=== PATIENT | female | born 1940 | race Caucasian/White ===

== ENCOUNTER 2018-01-06 00:40 | Emergency (ER) | payer MEDICARE, OTHER, SELFPAY ==
[2018-01-06 00:47] VITALS: BP 144/95; PULSE 87; RESP 20; TEMP 36.6; O2SAT 97
[2018-01-06 01:01] LABS: Bilirubin Urine UA NEGATIVE (NEGATIVE); Glucose Urine UA NEGATIVE (Normal); Ketones Urine UA TRACE (NEGATIVE); Leukocyte Esterase Urine UA 2+ (NEGATIVE); Nitrite Urine UA NEGATIVE (Negative); Occult Blood Urine UA 1+ (Negative); Protein Urine UA 2+ (Negative); Urobilinogen Urine UA 0.2 E.U./dL (0.2); pH Urine UA 5.5 (4.5-8.0)
[2018-01-06 01:08] LABS: Appearance Urine UA CLOUDY; Color Urine UA Orange
[2018-01-06 01:09] LABS: Bacteria Urine Few (2-10); RBC Urine 30-100/HPF (0-5/HPF); Squamous Epithelial Cell Urine 0-1 /HPF; WBC Urine 30-100/HPF (0-5/HPF)
[2018-01-06 01:10] LABS: Culture Indicated Urine Specimen Cultured
--- NOTE | 2018-01-06 01:19 | ED.FEMALEGU ---
HPI - Female Genitourinary General Chief complaint: Urogenital-Female Stated complaint: blood in urine, pain burning Time Seen by Provider: 01/06/18 01:19 Source: patient Mode of arrival: ambulatory Limitations: no limitations History of Present Illness HPI Narrative: This is a 77-year-old female who comes to the emergency department with complaint of dysuria, urgency and frequency that started earlier this evening. Patient states that she has not had any fevers, no abdominal, pelvic pain or back or flank pain. She has not had any nausea or vomiting. She has not had any other GI issues. She has had UTIs in the past. She did notice what looks like some blood in her urine. Patient has history significant for hypothyroidism. She has what sounds like is potentially a volvulus or bowel obstruction that required abdominal surgery. She had wound dehiscence and had a wound VAC in place for prolonged period. She has also had bilateral knee surgery. Related Data Home Medications Medication Instructions Recorded Confirmed levothyroxine [Synthroid] 0.075 mg PO QDAY #0 09/28/09/29/17 Previous Rx's Medication Instructions Recorded nitrofurantoin monohyd/m-cryst 100 mg PO BID #10 cap 01/06/18 [Macrobid] Allergies Allergy/AdvReac Type Severity Reaction Status Date / Time codeine [CODEINE] Allergy Severe CHANGE IN Unverified 09/29/17 12:14 BEHAVIOR latex [LATEX] Allergy Severe FEVER Unverified 09/29/17 12:14 BLISTERS penicillin V [PENICILLIN V] Allergy Severe ANAPHYLAXIS Unverified 09/29/17 12:14 hydroxychloroquine Allergy Intermediate Unverified 09/29/17 12:14 [HYDROXYCHLOROQUINE] simvastatin [From ZOCOR] Allergy Intermediate Unverified 09/29/17 12:14 venlafaxine [VENLAFAXINE] Allergy Intermediate Unverified 09/29/17 12:14 Metal Allergy Severe Rash/Hives/ Uncoded 09/29/17 12:14 Itching Review of Systems Review of Systems All systems reviewed & are unremarkable except as noted in HPI and below Constitutional Denies fever(s) and Reports other (Has felt cold for several days) Gastrointestinal Gastrointestinal: Denies abdominal pain, Denies change in bowel habits, Denies diarrhea, Denies nausea and Denies vomiting Genitourinary Reports hematuria, Reports urinary frequency, Reports dysuria, Denies flank pain, Denies urinary incontinence and Reports urinary urgency Musculoskeletal Denies back pain PFSH Medical History Hypothyroid (Acute) Surgical History H/O: knee surgery (Acute) Exam Initial Vital Signs Initial Vital Signs: Vital Signs Temperature 97.9 F 01/06/18 00:47 Pulse Rate 87 01/06/18 00:47 Respiratory Rate 20 01/06/18 00:47 Blood Pressure 144/95 H 01/06/18 00:47 Pulse Oximetry 97 01/06/18 00:47 Course Orders Ordered: ED Orders 01/06/18 00:50 Urinalysis and Microscopic Stat Urine Culture Stat Discontinued Medications Nitrofurantoin Macrocrystals (Macrobid 100mg Prepack) 1 bottle MISC SEEINSTR ONE Stop: 01/06/18 01:30 Last Admin: 01/06/18 01:43 Dose: 1 bottle Phenazopyridine HCl (Pyridium 100mg Prepack) 1 bottle MISC SEEINSTR ONE Stop: 01/06/18 01:30 Last Admin: 01/06/18 01:43 Dose: 1 bottle Vital Signs - 8 hr 01/06/18 00:47 01/06/18 01:53 Temperature 97.9 F 97.2 F L Pulse Rate 87 96 H Respiratory Rate 20 18 Blood Pressure 144/95 H 132/77 Pulse Oximetry 97 99 MDM - Female Genitourinary Lab Data Lab Results 01/06/18 Range/Units 00:50 Urine Color [place] Urine Appearance Cloudy Urine pH 5.5 (4.5-8.0) Ur Specific [place] 1.020 (1.000-1.035) Urine Protein 2+ H (Negative) Urine Glucose (UA) Negative (Normal) g/dL Urine Ketones Trace H (NEGATIVE) Urine Occult Blood 1+ H (Negative) Urine Nitrate Negative (Negative) Urine Bilirubin Negative (NEGATIVE) Urine Urobilinogen 0.2 (0.2) E.U./dL Ur Leukocyte Esterase 2+ H (NEGATIVE) Urine RBC 30-100/hpf H (0-5/HPF) Urine WBC 30-100/hpf H (0-5/HPF) Ur Squamous Epith Cells 0-1 /hpf Urine Bacteria Few (2-10) H (None) Ur Culture Indicated? Specimen cultured Micro UA Comment Not Reportable MDM Narrative Medical decision making narrative: Clinically patient is a UTI. Urine shows leukocyte esterase although no nitrates. She does have white blood cells and does not have an excessive number of epithelial cells. Plan for Pyridium along with Macrobid. she has a history of penicillin allergy. Patient has had pretty in the past without any issue. Discharge Plan Departure Patient Disposition: Home Clinical Impression: Acute UTI Discharge Date/Time: 01/06/18 01:54 Interventions: ED Discharge Assessment Last Done: 01/06/18 01:53 Instructions: DI for Urinary Tract Infection (UTI) Activity Restrictions/Additional Instructions: Follow-up with your primary care physician in the next 2-3 days if your symptoms are not resolving. Return to the emergency department for fevers greater than 100.4, new flank pain, new abdominal pain, persistent vomiting or other new or concerning symptoms. Take antibiotics until they are completely gone. Take peridium 1 tablet every 8 hours as needed for symptoms. Prescriptions: New nitrofurantoin monohyd/m-cryst [Macrobid] 100 mg capsule 100 mg PO BID Qty: 10 RF: 0 No Action levothyroxine [Synthroid] 75 MCG tablet 0.075 mg PO QDAY Qty: 0 RF: 0
[2018-01-06] MEDS: NITROFURANTOIN 100MG PREPACK 1 BOTTLE MISC (01:43)
[2018-01-06] MEDS: PHENAZOPYRIDINE 100 MG PREPACK 1 BOTTLE MISC (01:43)
[2018-01-06 01:53] VITALS: BP 132/77; PULSE 96; RESP 18; TEMP 36.2; O2SAT 99
== END 2018-01-06 01:54 | disposition home or self-care (01) ==
PROVIDERS: Emergency Provider Emergency Medicine
DX: N39.0 Urinary tract infection, site not specified (principal)
CPT/HCPCS: 81001; 87086; 99282; 99283

== ENCOUNTER → 2018-01-22 08:57 | Outpatient (CLI) | payer MEDICARE, OTHER, SELFPAY ==
--- NOTE | 2018-01-22 | DI.RAD.S_ITS ---
PROCEDURE: XR WRIST RT MIN 3V INDICATIONS: BI HAND AND WRIST PAIN/ RIGHT ANKLE PAIN TECHNIQUE: 4 views of the right wrist were acquired. COMPARISON: [facility], , HAND 3V RIGHT, 08/31/2014, 10:00. FINDINGS: Bones: No fractures or dislocations, but there is moderately severe to severe degenerative change at the visualized first MCP joint and especially severe at the base of the first metacarpal articulates against the trapezium.. No suspicious bony lesions. Scaphoid view: No trauma the scaphoid is present. Soft tissues: No suspicious soft tissue calcifications. IMPRESSION: Advanced degenerative osteoarthritis slightly worsened from a comparison hand plain film include the wrist 08/31/14. No superimposed acute trauma or erosive arthritis is suspected. Dictated by: Rodrigo Alejo M.D. on 01/22/2018 at 9:44 Approved by: Rodrigo Alejo M.D. on 01/22/2018 at 9:45
--- NOTE | 2018-01-22 | DI.RAD.S_ITS ---
PROCEDURE: XR WRIST LT MIN 3V INDICATIONS: BI HAND AND WRIST PAIN/ RIGHT ANKLE PAIN TECHNIQUE: 4 views of the wrist were acquired. COMPARISON: [facility], HAND 3V LEFT, 08/31/2014, 10:00. , [facility], XR WRIST RT MIN 3V, 01/22/2018, 9:07. FINDINGS: Bones: No fractures or dislocations. No suspicious bony lesions. Advanced degenerative osteoarthritis is seen at the base of the first metacarpal as articulates against the trapezium where both narrowing of the joint interspace and subluxation laterally is present. There is a finding also of the distal scaphoid subchondral cyst. Scaphoid view: No trauma to the scaphoid. Soft tissues: No suspicious soft tissue calcifications. IMPRESSION: Advanced degenerative osteoarthritis involving the hand and wrist mildly worsened from the comparison study the hand that included the wrist from August of 2014. Dictated by: Rodrigo Alejo M.D. on 01/22/2018 at 9:47 Approved by: Rodrigo Alejo M.D. on 01/22/2018 at 9:49
--- NOTE | 2018-01-22 | DI.RAD.S_ITS ---
PROCEDURE: XR HAND LT MIN 3V INDICATIONS: BI HAND AND WRIST PAIN/ RIGHT ANKLE PAIN TECHNIQUE: 3 views of the hand(s) acquired. COMPARISON: [facility], CR, XR HAND RT MIN 3V, 01/22/2018, 9:06. [facility], CR, HAND 3V LEFT, 08/31/2014, 10:00. FINDINGS: Bones: No fractures or dislocations, but there has been mild interval worsening of advanced degenerative osteoarthritic change involving the left hand, and wrist. This includes prominent distal interphalangeal joint space narrowing and osteophytic spurring along digits 2, 3, 4 and to a lesser degree the fifth distal interphalangeal joint. Carpal bones are normally aligned but there is moderately severe degenerative change at the base of the first metacarpal.. No suspicious bony lesions. Soft tissues: No suspicious soft tissue calcifications. IMPRESSION: Mild interval worsening of advanced degenerative osteoarthritis from the reference study of the left hand from August of 2014. No superimposed trauma found. Quite severe arthritic changes also present at the base of the first metacarpal as it articulates against the trapezium. Dictated by: Rodrigo Alejo M.D. on 01/22/2018 at 9:45 Approved by: Rodrigo Alejo M.D. on 01/22/2018 at 9:47
--- NOTE | 2018-01-22 | DI.RAD.S_ITS ---
PROCEDURE: XR HAND RT MIN 3V INDICATIONS: BI HAND AND WRIST PAIN/ RIGHT ANKLE PAIN TECHNIQUE: 3 views of the hand(s) acquired. COMPARISON: [facility], HAND 3V RIGHT, 08/31/2014, 10:00. [facility], HAND 3V LEFT, 08/31/2014, 10:00. [facility], HAND 3V RIGHT, 01/27/2010, 8:33. FINDINGS: Bones: No fractures or dislocations but there is moderately severe to severe degenerative osteoarthritis involving the hand and wrist, with the most pronounced areas of degenerative change at the distal interphalangeal joints of digits 23 and 4 and at the base of the first metacarpal as articulates against the trapezium.. Carpal bones are normally aligned. No suspicious bony lesions. Soft tissues: No suspicious soft tissue calcifications. IMPRESSION: Advanced degenerative osteoarthritis, slightly worsened from the comparison study in August of 2014. No trauma found. Dictated by: Rodrigo Alejo M.D. on 01/22/2018 at 9:42 Approved by: Rodrigo Alejo M.D. on 01/22/2018 at 9:44
--- NOTE | 2018-01-22 | DI.RAD.S_ITS ---
PROCEDURE: XR ANKLE RT MIN 3V INDICATIONS: BI HAND AND WRIST PAIN/ RIGHT ANKLE PAIN TECHNIQUE: 3 views of the ankle were acquired. COMPARISON: None. FINDINGS: Bones: No fractures or dislocations and there is mild thinning of the tibiotalar joint indicating presence of mild degenerative osteoarthritis in that area. Ankle mortise is normally aligned. No suspicious bony lesions. Soft tissues: No tibiotalar joint effusion. Achilles tendon appears normal. IMPRESSION: Mild tibiotalar joint osteoarthritis. Dictated by: Rodrigo Alejo M.D. on 01/22/2018 at 9:49 Approved by: Rodrigo Alejo M.D. on 01/22/2018 at 9:49
== END ==
PROVIDERS: PCP Internal Medicine; Visit Provider Internal Medicine Rheumatology
DX: L40.50 Arthropathic psoriasis, unspecified (principal); M19.042 Primary osteoarthritis, left hand; M19.041 Primary osteoarthritis, right hand; M19.032 Primary osteoarthritis, left wrist; M19.031 Primary osteoarthritis, right wrist; M19.071 Primary osteoarthritis, right ankle and foot; M25.571 Pain in right ankle and joints of right foot; M79.642 Pain in left hand; M79.641 Pain in right hand; M25.532 Pain in left wrist; M25.531 Pain in right wrist
CPT/HCPCS: 73110; 73130; 73610

== ENCOUNTER 2018-02-20 09:45 | Outpatient (RCR) | payer MEDICARE, OTHER, SELFPAY ==
--- NOTE | 2017-11-11 12:05 | PT.OIE ---
Current Diagnoses Presence of right artificial knee joint (11/11/17) Provider Visit Care Team Role Provider Type Dandre Peña DO Attending Provider Non-Staff Specialty: Orthopedics Address: [address] [place] [address], [id number] Email: Physical Therapy Initial Evaluation PT-OP-A Visit Information Start: 11/11/17 12:08 Freq: Status: Active Protocol: Document 11/11/17 12:05 MDD (Rec: 11/11/17 12:35 MDD [email or web address]) Out-Patient Physical Therapy Visit Information Visit Information Visit Type Initial Evaluation Visit Start Time 11:15 Visit Stop Time 12:05 Total Visit Minutes 50 Visit Number 1 Number of HOME HEALTH PHYSICAL THERAPIST Visits 0 Evaluation Information Evaluation Date 11/11/17 PT-OP-B Current Condition Start: 11/11/17 12:08 Freq: Status: Active Protocol: Document 11/11/17 12:05 MDD (Rec: 11/11/17 12:35 MDD [email or web address]) Current Condition History of Current Condition Onset Date 11/05/17 Current Complaints R knee pain s/p R TKA History of Current Condition Pt had left knee replaced 1.5 years ago. Reports she had an arthroscopic surgery on the R knee in and didn't have any trouble with her R knee until she was rehabing her L knee replacement. Her surgery was performed on 11/05/[address] Peña at [facility]. Pt also reports history of R sciatic pain that was very aggravated before her surgery. She has not felt it recently , but is cautious about her movements because of it. Treatment Goals Patient/Caregiver Goals Pt would like to decrease pain , be able to return to riding her bike, walking her dog and swimming. 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 Current Functional Impairments (Reported) Functional Limitations- ADL's Difficulty standing up from low seat, rolling in bed Functional Limitations- Recreation/ unable to walk long distances Hobbies with her dog, bike or swim PT-OP-C Subjective Start: 11/11/17 12:08 Freq: Status: Active Protocol: Document 11/11/17 12:05 MDD (Rec: 11/11/17 12:35 [facility] [email or web address]) OP-PT Subjective Patient Comments Patient Comments Pt reports her knee has been very painful since the surgery . She has been taking medication regularly and has been icing multiple times per day. Patient Reported Progress Same Patient Questionnaires Lower Extremity Functional Scale LEFS Score 6/80 LEFS Impairment 80 to 99% Impaired (Score 1-16 ) OP-PT Pain Assessment Pain Assessment Grid Paper Pain Assessment Grid Completed Yes Location Knee Pain Location Details globally in R knee Intensity 5 Scale Used Numeric (1 - 10) Description Aching Sharp Frequency Constant Pain Alleviating Factors Cold Medication Pain Behaviors Pain Behaviors Calling Out Facial Grimacing Guarding PT-OP-G Mobility & Gait Start: 11/11/17 12:08 Freq: Status: Active Protocol: Document 11/11/17 12:05 MDD (Rec: 11/11/17 12:35 [facility] [email or web address]) OP Mobility Evaluation Bed Mobility Rolling Did not perform today. Supine to and from Sit guarded and slow OP Gait Assessment Gait Gait Assistance Required: Independent Distance (Feet) (feet) 30 Able to Maintain Weight Bearing Status Yes During Gait Assistive Devices Assistive Device Front Wheeled Walker Gait Deviations General Gait Pattern Antalgic Decreased Stride Length Narrow Based Gait Factors Limiting Gait Function Factors Limiting Gait Function Limited Range of Motion Pain PT-OP-J Posture/Palpation/Skin Start: 11/11/17 12:08 Freq: Status: Active Protocol: Document 11/11/17 12:05 [facility] (Rec: 11/11/17 12:35 [facility] [email or web address]) Skin Assessment Circumference Measurement 2 Location L knee jointline Measurement (Centimeters) 42 1 Location R knee jointline Measurement (Centimeters) 46 Incisional Assessment Incision Appearance/Comments incision appears to be healing well, fully scabbed with no significant areas of redness Other Assessments Skin Assessment Comments moderate healing bruises in R knee and nguyen. Mildly decreased sensation in R LE distal to knee than L. PT-OP-K Range of Motion Start: 11/11/17 12:08 Freq: Status: Active Protocol: Document 11/11/17 12:05 MDD (Rec: 11/11/17 12:35 [facility] [email or web address]) Knee Goniometric Range of Motion Knee Measured in Degrees Right Knee ROM WFL No Patient Position Supine Flexion Active (degrees) 70 Extension Active (degrees) 12 Left Knee ROM WFL Yes Patient Position Supine Flexion Active (degrees) 130 Flexion Passive (degrees) 132 Extension Active (degrees) 0 Extension Passive (degrees) 0 Knee ROM Limitations Knee ROM Limitations Soft Tissue Tightness Pain Swelling PT-OP-R Modalities Start: 11/11/17 12:08 Freq: Status: Active Protocol: Document 11/11/17 12:05 MDD (Rec: 11/11/17 12:35 MDD [email or web address]) Electric Stimulation Electric Stimulation Interferential Current (IFC) Body Location R knee Duration (Minutes) 15 Intensity 18 Patient Position Supine Combined With Heat/Cold Cold Pack PT-OP-T Assessment and Plan Start: 11/11/17 12:08 Freq: Status: Active Protocol: Document 11/11/17 12:05 MDD (Rec: 11/11/17 12:35 MDD [email or web address]) Physical Therapy Assessment Rehab Potential Rehabilitation Potential Good Evaluation Complexity Number of Personal Factors/Comorbidities 0 Number of Body Systems Impaired 1-2 Clinical Presentation at Evaluation Stable Impairments Impairments Activity Tolerance Edema Functional Mobility Gait Integument Pain ROM Sensation Soft Tissue Mobility Strength Goals 3 Impairment Activity tolerance Short Term Goal (STG) Pt to tolerate ambulating up to 1/2 mile with her dog in 4- 6 weeks. STG Duration 4 weeks Molecular Biology Director Goal (LTG) Pt to tolerate ambulating up to 2 miles with her dog. LTG Duration 12 weeks 2 Impairment Gait Short Term Goal (STG) Progress to gait on level ground with single point cane in 3-4 weeks. STG Duration 4 weeks Molecular Biology Director Goal (LTG) Progress to independent with no AD on level ground in 8 weeks. LTG Duration 8 One Impairment ROM Short Term Goal (STG) Improve R knee ROM to 0-90 degrees in 2-3 weeks. STG Duration 2 week Penitentiary Goal (LTG) R knee ROM 0-130 in 6-8 weeks. LTG Duration 8 weeks Assessment Summary Assessment Pt is day 6 P/O R TKA and is currently limited in her ability to perform transfers and gait without pain. She would like to get back to walking her dog, riding her bike and swimming. Today she demonstrates impaired active/ passive R knee ROM, swelling, impaired gait, LE strength and significant pain. She should benefit from a PT plan of care to address the above impairments. Physical Therapy Plan Frequency and Duration Frequency of Treatment 2x/Week Duration of Treatment 12 weeks Plan of Care Start Date 11/11/17 Plan of Care End Date 02/03/18 Therapeutic Interventions Therapeutic Interventions Aquatic Therapy Gait Training Home Exercise Program Joint Mobilizations Manual Therapy Neuromuscular Re-education Self-Care/Home Management Soft Tissue Mobilization Therapeutic Activities Therapeutic Exercises Modalities Cold Pack/Ice Massage Electric Stimulation Next Visit Focus/Plan Next Note Type Treatment Note Next Visit Plan Pt unable to tolerate gentle posterior femoral glide mobilizations for knee extension today, may trial at next session. Review and progress HEP: provided handout today including heel slides, quad sets, gluteal sets, supine hip abduction, ankle pumps and supine knee extension stretch with towel roll under ankle.
--- NOTE | 2017-11-13 12:39 | PT.OTN ---
Current Diagnoses Presence of right artificial knee joint (11/13/17) Physical Therapy Treatment Note PT-OP-A Visit Information Start: 11/11/17 12:08 Freq: Status: Active Protocol: Document 11/13/17 12:00 DCW (Rec: 11/13/17 12:38 DCW [id number]) Out-Patient Physical Therapy Visit Information Visit Information Visit Type Treatment Note Visit Start Time 12:00 Visit Stop Time 12:55 Total Visit Minutes 55 Visit Number 2 Number of KITCHEN CLERK Visits 0 Evaluation Information Evaluation Date 11/11/17 PT-OP-B Current Condition Start: 11/11/17 12:08 Freq: Status: Active Protocol: Document 11/11/17 12:05 MDD (Rec: 11/11/17 12:35 MDD [email or web address]) Current Condition History of Current Condition Onset Date 11/05/17 Current Complaints R knee pain s/p R TKA History of Current Condition Pt had left knee replaced 1.5 years ago. Reports she had an arthroscopic surgery on the R knee in and didn't have any trouble with her R knee until she was rehabing her L knee replacement. Her surgery was performed on 11/05/[address] Peña at [facility]. Pt also reports history of R sciatic pain that was very aggravated before her surgery. She has not felt it recently , but is cautious about her movements because of it. Treatment Goals Patient/Caregiver Goals Pt would like to decrease pain , be able to return to riding her bike, walking her dog and swimming. 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 Current Functional Impairments (Reported) Functional Limitations- ADL's Difficulty standing up from low seat, rolling in bed Functional Limitations- Recreation/ unable to walk long distances Hobbies with her dog, bike or swim PT-OP-C Subjective Start: 11/11/17 12:08 Freq: Status: Active Protocol: Document 11/13/17 12:00 DCW (Rec: 11/13/17 12:38 DCW [id number]) OP-PT Subjective Patient Comments Patient Comments My knee hurts like hell. PT-OP-G Mobility & Gait Start: 11/11/17 12:08 Freq: Status: Active Protocol: Document 11/11/17 12:05 MDD (Rec: 11/11/17 12:35 MDD [email or web address]) OP Mobility Evaluation Bed Mobility Rolling Did not perform today. Supine to and from Sit guarded and slow OP Gait Assessment Gait Gait Assistance Required: Independent Distance (Feet) (feet) 30 Able to Maintain Weight Bearing Status Yes During Gait Assistive Devices Assistive Device Front Wheeled Walker Gait Deviations General Gait Pattern Antalgic Decreased Stride Length Narrow Based Gait Factors Limiting Gait Function Factors Limiting Gait Function Limited Range of Motion Pain PT-OP-J Posture/Palpation/Skin Start: 11/11/17 12:08 Freq: Status: Active Protocol: Document 11/11/17 12:05 MDD (Rec: 11/11/17 12:35 MDD [email or web address]) Skin Assessment Circumference Measurement 2 Location L knee jointline Measurement (Centimeters) 42 1 Location R knee jointline Measurement (Centimeters) 46 Incisional Assessment Incision Appearance/Comments incision appears to be healing well, fully scabbed with no significant areas of redness Other Assessments Skin Assessment Comments moderate healing bruises in R knee and nguyen. Mildly decreased sensation in R LE distal to knee than L. PT-OP-K Range of Motion Start: 11/11/17 12:08 Freq: Status: Active Protocol: Document 11/11/17 12:05 MDD (Rec: 11/11/17 12:35 MDD [email or web address]) Knee Goniometric Range of Motion Knee Measured in Degrees Right Knee ROM WFL No Patient Position Supine Flexion Active (degrees) 70 Extension Active (degrees) 12 Left Knee ROM WFL Yes Patient Position Supine Flexion Active (degrees) 130 Flexion Passive (degrees) 132 Extension Active (degrees) 0 Extension Passive (degrees) 0 Knee ROM Limitations Knee ROM Limitations Soft Tissue Tightness Pain Swelling PT-OP-Q Treatments Start: 11/11/17 12:08 Freq: Status: Active Protocol: Document 11/13/17 12:00 DCW (Rec: 11/13/17 12:38 DCW [id number]) Cardio Equipment Recumbent Bicycle Duration (Minutes) 5 Resistance 0 Seat Position 3 Other Pt unable to complete full rotation Therapeutic Exercises Supine Exercises 4 Supine Exercise Name Hip Abduction/Windshield Wipers Side right 3 Supine Exercise Name SLR Side right 2 Supine Exercise Name Heel slides Side right 1 Supine Exercise Name SAQ Side right Standing Exercises 3 Standing Exercise Name Step-up Side right Resistance 4 step 2 Standing Exercise Name Flexion Step stretch Side right 1 Standing Exercise Name TKE Side right Resistance Lv 2 Equipment Used T-Band PT-OP-R Modalities Start: 11/11/17 12:08 Freq: Status: Active Protocol: Document 11/13/17 12:00 DCW (Rec: 11/13/17 12:38 DCW [id number]) Electric Stimulation Electric Stimulation Interferential Current (IFC) Body Location R knee Duration (Minutes) 15 Intensity 18 Patient Position Supine Combined With Heat/Cold Cold Pack PT-OP-T Assessment and Plan Start: 11/11/17 12:08 Freq: Status: Active Protocol: Document 11/13/17 12:00 DCW (Rec: 11/13/17 12:38 DCW [id number]) Physical Therapy Assessment Impairments Impairments Activity Tolerance Edema Functional Mobility Gait Integument Pain ROM Sensation Soft Tissue Mobility Strength Goals 3 Impairment Activity tolerance Short Term Goal (STG) Pt to tolerate ambulating up to 1/2 mile with her dog in 4- 6 weeks. STG Duration 4 weeks Energy Specialist Goal (LTG) Pt to tolerate ambulating up to 2 miles with her dog. LTG Duration 12 weeks 2 Impairment Gait Short Term Goal (STG) Progress to gait on level ground with single point cane in 3-4 weeks. STG Duration 4 weeks Energy Specialist Goal (LTG) Progress to independent with no AD on level ground in 8 weeks. LTG Duration 8 One Impairment ROM Short Term Goal (STG) Improve R knee ROM to 0-90 degrees in 2-3 weeks. STG Duration 2 week Energy Specialist Goal (LTG) R knee ROM 0-130 in 6-8 weeks. LTG Duration 8 weeks Assessment Summary Assessment Pt has fairly low pain tolerance, but is willing to work through it with many of her exercises. Physical Therapy Plan Frequency and Duration Frequency of Treatment 2x/Week Duration of Treatment 12 weeks Plan of Care Start Date 11/11/17 Plan of Care End Date 02/03/18 Therapeutic Interventions Therapeutic Interventions Aquatic Therapy Gait Training Home Exercise Program Joint Mobilizations Manual Therapy Neuromuscular Re-education Self-Care/Home Management Soft Tissue Mobilization Therapeutic Activities Therapeutic Exercises Modalities Cold Pack/Ice Massage Electric Stimulation Next Visit Focus/Plan Next Note Type Treatment Note Next Visit Plan Continued POC
--- NOTE | 2017-11-19 12:04 | PT.OTN ---
Current Diagnoses Presence of right artificial knee joint (11/13/17) Physical Therapy Treatment Note PT-OP-A Visit Information Start: 11/11/17 12:08 Freq: Status: Active Protocol: Document 11/19/17 12:04 MDD (Rec: 11/19/17 16:45 MDD [email or web address]) Out-Patient Physical Therapy Visit Information Visit Information Visit Type Treatment Note Visit Start Time 11:25 Visit Stop Time 12:04 Total Visit Minutes 39 Visit Number 3 Number of WEDDING FLORIST Visits 0 Evaluation Information Evaluation Date 11/11/17 PT-OP-B Current Condition Start: 11/11/17 12:08 Freq: Status: Active Protocol: Document 11/11/17 12:05 MDD (Rec: 11/11/17 12:35 MDD [email or web address]) Current Condition History of Current Condition Onset Date 11/05/17 Current Complaints R knee pain s/p R TKA History of Current Condition Pt had left knee replaced 1.5 years ago. Reports she had an arthroscopic surgery on the R knee in and didn't have any trouble with her R knee until she was rehabing her L knee replacement. Her surgery was performed on 11/05/[address] Peña at [facility]. Pt also reports history of R sciatic pain that was very aggravated before her surgery. She has not felt it recently , but is cautious about her movements because of it. Treatment Goals Patient/Caregiver Goals Pt would like to decrease pain , be able to return to riding her bike, walking her dog and swimming. 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 Current Functional Impairments (Reported) Functional Limitations- ADL's Difficulty standing up from low seat, rolling in bed Functional Limitations- Recreation/ unable to walk long distances Hobbies with her dog, bike or swim PT-OP-C Subjective Start: 11/11/17 12:08 Freq: Status: Active Protocol: Document 11/19/17 12:04 MDD (Rec: 11/19/17 16:45 MDD [email or web address]) OP-PT Subjective Patient Comments Patient Comments Pt continues to report significant pain in her R knee , but is walking better and using the cane only when out and about (no cane in the house). OP-PT Pain Assessment Location Knee Pain Location Details globally in R knee Intensity 8 Scale Used Numeric (1 - 10) Description Aching Sharp Frequency Constant Pain Alleviating Factors Cold Medication PT-OP-G Mobility & Gait Start: 11/11/17 12:08 Freq: Status: Active Protocol: Document 11/11/17 12:05 MDD (Rec: 11/11/17 12:35 MDD [email or web address]) OP Mobility Evaluation Bed Mobility Rolling Did not perform today. Supine to and from Sit guarded and slow OP Gait Assessment Gait Gait Assistance Required: Independent Distance (Feet) (feet) 30 Able to Maintain Weight Bearing Status Yes During Gait Assistive Devices Assistive Device Front Wheeled Walker Gait Deviations General Gait Pattern Antalgic Decreased Stride Length Narrow Based Gait Factors Limiting Gait Function Factors Limiting Gait Function Limited Range of Motion Pain PT-OP-J Posture/Palpation/Skin Start: 11/11/17 12:08 Freq: Status: Active Protocol: Document 11/11/17 12:05 MDD (Rec: 11/11/17 12:35 MDD [email or web address]) Skin Assessment Circumference Measurement 2 Location L knee jointline Measurement (Centimeters) 42 1 Location R knee jointline Measurement (Centimeters) 46 Incisional Assessment Incision Appearance/Comments incision appears to be healing well, fully scabbed with no significant areas of redness Other Assessments Skin Assessment Comments moderate healing bruises in R knee and nguyen. Mildly decreased sensation in R LE distal to knee than L. PT-OP-K Range of Motion Start: 11/11/17 12:08 Freq: Status: Active Protocol: Document 11/11/17 12:05 MDD (Rec: 11/11/17 12:35 MDD [email or web address]) Knee Goniometric Range of Motion Knee Measured in Degrees Right Knee ROM WFL No Patient Position Supine Flexion Active (degrees) 70 Extension Active (degrees) 12 Left Knee ROM WFL Yes Patient Position Supine Flexion Active (degrees) 130 Flexion Passive (degrees) 132 Extension Active (degrees) 0 Extension Passive (degrees) 0 Knee ROM Limitations Knee ROM Limitations Soft Tissue Tightness Pain Swelling PT-OP-Q Treatments Start: 11/11/17 12:08 Freq: Status: Active Protocol: Document 11/19/17 12:04 MDD (Rec: 11/19/17 16:45 MDD [email or web address]) Cardio Equipment Bicycle (Upright) Duration (Minutes) 5 Resistance 0 Other rocking fwd/back for stretch - no full revolutions Therapeutic Exercises Sitting Exercises Finnish ball flexion stretch Side right Equipment Used small pakistani ball Reps/Minutes 3 minutes Comments rocking forward with feet planted for knee flexion stretch Standing Exercises 6 Standing Exercise Name standing hip abduction Side bilateral Resistance Lv 1 t-band (latex free) Reps/Minutes 10 5 Standing Exercise Name standing hip extension Side bilateral Resistance Lv 1 - tband (latex free) Reps/Minutes 10 4 Standing Exercise Name standing hip flexion Side bilateral Resistance Lv 1 -tband (latex free) Reps/Minutes 10 3 Standing Exercise Name Step-up Side right Resistance 4 step Reps/Minutes 10 2 Standing Exercise Name Flexion Step stretch Side right 1 Standing Exercise Name TKE Side right Resistance Lv 1 (latex free) Equipment Used T-Band Reps/Minutes 15 Gait Training Gait Activity 1 Description Practice activating gluteals during weight acceptance Surface level ground Distance/Duration 10 minutes Treatment Focus increasing knee flexion/ avoiding limping Comments Focus on normalizing flexion during gait PT-OP-R Modalities Start: 11/11/17 12:08 Freq: Status: Active Protocol: Document 11/13/17 12:00 DCW (Rec: 11/13/17 12:38 DCW [id number]) Electric Stimulation Electric Stimulation Interferential Current (IFC) Body Location R knee Duration (Minutes) 15 Intensity 18 Patient Position Supine Combined With Heat/Cold Cold Pack PT-OP-T Assessment and Plan Start: 11/11/17 12:08 Freq: Status: Active Protocol: Document 11/19/17 12:04 MDD (Rec: 11/19/17 16:45 MDD [email or web address]) Physical Therapy Assessment Progress Towards Goals Progress Towards Goals Progressing Toward Goals Progress Comments Improved AROM today to -5 degrees extension to 100 degrees flexion. Assessment Summary Assessment Pt demonstrating improved tolerance for activities. Continues to have low pain tolerance. Does report decreased pain at end of session today. Physical Therapy Plan Frequency and Duration Frequency of Treatment 2x/Week Duration of Treatment 12 weeks Plan of Care Start Date 11/11/17 Plan of Care End Date 02/03/18 Next Visit Focus/Plan Next Note Type Treatment Note Next Visit Plan Continue progressing knee ROM stretches.
--- NOTE | 2017-11-22 14:30 | PT.OTN ---
Current Diagnoses Presence of right artificial knee joint (11/22/17) Physical Therapy Treatment Note PT-OP-A Visit Information Start: 11/11/17 12:08 Freq: Status: Active Protocol: Document 11/22/17 14:30 RCC (Rec: 11/23/17 13:17 RCC [email or web address]) Out-Patient Physical Therapy Visit Information Visit Information Visit Type Treatment Note Visit Start Time 13:45 Visit Stop Time 14:45 Total Visit Minutes 60 Visit Number 4 Number of BUGGY LOADER Visits 0 Evaluation Information Evaluation Date 11/11/17 PT-OP-B Current Condition Start: 11/11/17 12:08 Freq: Status: Active Protocol: Document 11/11/17 12:05 MDD (Rec: 11/11/17 12:35 MDD [email or web address]) Current Condition History of Current Condition Onset Date 11/05/17 Current Complaints R knee pain s/p R TKA History of Current Condition Pt had left knee replaced 1.5 years ago. Reports she had an arthroscopic surgery on the R knee in and didn't have any trouble with her R knee until she was rehabing her L knee replacement. Her surgery was performed on 11/05/[address] Peña at [facility]. Pt also reports history of R sciatic pain that was very aggravated before her surgery. She has not felt it recently , but is cautious about her movements because of it. Treatment Goals Patient/Caregiver Goals Pt would like to decrease pain , be able to return to riding her bike, walking her dog and swimming. 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 Current Functional Impairments (Reported) Functional Limitations- ADL's Difficulty standing up from low seat, rolling in bed Functional Limitations- Recreation/ unable to walk long distances Hobbies with her dog, bike or swim PT-OP-C Subjective Start: 11/11/17 12:08 Freq: Status: Active Protocol: Document 11/22/17 14:30 RCC (Rec: 11/23/17 13:17 RCC [email or web address]) OP-PT Subjective Patient Comments Patient Comments Pt notes less pain in R knee the past day and a half. She reports performing her HEP. PT-OP-G Mobility & Gait Start: 11/11/17 12:08 Freq: Status: Active Protocol: Document 11/11/17 12:05 MDD (Rec: 11/11/17 12:35 MDD [email or web address]) OP Mobility Evaluation Bed Mobility Rolling Did not perform today. Supine to and from Sit guarded and slow OP Gait Assessment Gait Gait Assistance Required: Independent Distance (Feet) (feet) 30 Able to Maintain Weight Bearing Status Yes During Gait Assistive Devices Assistive Device Front Wheeled Walker Gait Deviations General Gait Pattern Antalgic Decreased Stride Length Narrow Based Gait Factors Limiting Gait Function Factors Limiting Gait Function Limited Range of Motion Pain PT-OP-J Posture/Palpation/Skin Start: 11/11/17 12:08 Freq: Status: Active Protocol: Document 11/11/17 12:05 MDD (Rec: 11/11/17 12:35 MDD [email or web address]) Skin Assessment Circumference Measurement 2 Location L knee jointline Measurement (Centimeters) 42 1 Location R knee jointline Measurement (Centimeters) 46 Incisional Assessment Incision Appearance/Comments incision appears to be healing well, fully scabbed with no significant areas of redness Other Assessments Skin Assessment Comments moderate healing bruises in R knee and nguyen. Mildly decreased sensation in R LE distal to knee than L. PT-OP-K Range of Motion Start: 11/11/17 12:08 Freq: Status: Active Protocol: Document 11/22/17 14:30 RCC (Rec: 11/23/17 13:17 RCC [email or web address]) Knee Goniometric Range of Motion Knee Measured in Degrees Right Flexion Active (degrees) 101 Extension Active (degrees) 2 Knee ROM Limitations Knee ROM Limitations Soft Tissue Tightness Pain Swelling PT-OP-Q Treatments Start: 11/11/17 12:08 Freq: Status: Active Protocol: Document 11/22/17 14:30 RCC (Rec: 11/23/17 13:17 RCC [email or web address]) Cardio Equipment Recumbent Bicycle Duration (Minutes) 6 Resistance 0 Seat Position 3 Other Pt unable to complete full rotation Therapeutic Exercises Supine Exercises 3 Supine Exercise Name SLR Side right Reps/Minutes 10 2 Supine Exercise Name wall slides Side right Reps/Minutes 10 1 Supine Exercise Name SAQ Side right Reps/Minutes 10 Standing Exercises 6 Standing Exercise Name standing hip abduction Side bilateral Resistance Lv 1 t-band (latex free) Reps/Minutes 10 5 Standing Exercise Name standing hip extension Side bilateral Resistance Lv 1 - tband (latex free) Reps/Minutes 10 4 Standing Exercise Name standing hip flexion Side bilateral Resistance Lv 1 -tband (latex free) Reps/Minutes 10 2 Standing Exercise Name Flexion Step stretch Side right 1 Standing Exercise Name TKE Side right Resistance Lv 1 (latex free) Equipment Used T-Band Reps/Minutes 15 Manual Therapy Treatment Soft Tissue Mobilization scar tissue Body Location R anterior knee Mobilization Type Other Intensity/Depth Moderate Body Position Supine Joint Mobilizations 1 Joint PF joint Direction inferior, superior Grade III Body Position Supine PT-OP-R Modalities Start: 11/11/17 12:08 Freq: Status: Active Protocol: Document 11/22/17 14:30 RCC (Rec: 11/23/17 13:17 RCC [email or web address]) Electric Stimulation Electric Stimulation Interferential Current (IFC) Body Location R knee Duration (Minutes) 15 Intensity 21 Patient Position Hooklying Combined With Heat/Cold Cold Pack Comments bolster PT-OP-T Assessment and Plan Start: 11/11/17 12:08 Freq: Status: Active Protocol: Document 11/22/17 14:30 RCC (Rec: 11/23/17 13:17 [facility] [email or web address]) Physical Therapy Assessment Assessment Summary Assessment Pt's ROM is improving gradually, ranging 2-101 degrees AROM of the R knee after manual therapy and exercise. Pt's incision is closed, still scabbed and most sensitive at distal region. Physical Therapy Plan Frequency and Duration Frequency of Treatment 2x/Week Duration of Treatment 12 weeks Plan of Care Start Date 11/11/17 Plan of Care End Date 02/03/18 Next Visit Focus/Plan Next Note Type Treatment Note Next Visit Plan progress R knee ROM, LE strength, balance, and gait s/ p R TKA
--- NOTE | 2017-11-26 12:07 | PT.OTN ---
Current Diagnoses Presence of right artificial knee joint (11/26/17) Physical Therapy Treatment Note PT-OP-A Visit Information Start: 11/11/17 12:08 Freq: Status: Active Protocol: Document 11/26/17 11:15 DCW (Rec: 11/26/17 12:06 DCW [id number]) Out-Patient Physical Therapy Visit Information Visit Information Visit Type Treatment Note Visit Start Time 11:15 Visit Stop Time 12:10 Total Visit Minutes 55 Visit Number 5 Number of ANALYTICS DEVELOPER Visits 0 Evaluation Information Evaluation Date 11/11/17 PT-OP-B Current Condition Start: 11/11/17 12:08 Freq: Status: Active Protocol: Document 11/11/17 12:05 MDD (Rec: 11/11/17 12:35 MDD [email or web address]) Current Condition History of Current Condition Onset Date 11/05/17 Current Complaints R knee pain s/p R TKA History of Current Condition Pt had left knee replaced 1.5 years ago. Reports she had an arthroscopic surgery on the R knee in and didn't have any trouble with her R knee until she was rehabing her L knee replacement. Her surgery was performed on 11/05/[address] Peña at [facility]. Pt also reports history of R sciatic pain that was very aggravated before her surgery. She has not felt it recently , but is cautious about her movements because of it. Treatment Goals Patient/Caregiver Goals Pt would like to decrease pain , be able to return to riding her bike, walking her dog and swimming. 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 Current Functional Impairments (Reported) Functional Limitations- ADL's Difficulty standing up from low seat, rolling in bed Functional Limitations- Recreation/ unable to walk long distances Hobbies with her dog, bike or swim PT-OP-C Subjective Start: 11/11/17 12:08 Freq: Status: Active Protocol: Document 11/26/17 11:15 DCW (Rec: 11/26/17 12:06 DCW [id number]) OP-PT Subjective Patient Comments Patient Comments Pt's knee pain continues to subside, but she is still taking her pain pills prior to her therapy appointments. PT-OP-G Mobility & Gait Start: 11/11/17 12:08 Freq: Status: Active Protocol: Document 11/11/17 12:05 MDD (Rec: 11/11/17 12:35 MDD [email or web address]) OP Mobility Evaluation Bed Mobility Rolling Did not perform today. Supine to and from Sit guarded and slow OP Gait Assessment Gait Gait Assistance Required: Independent Distance (Feet) (feet) 30 Able to Maintain Weight Bearing Status Yes During Gait Assistive Devices Assistive Device Front Wheeled Walker Gait Deviations General Gait Pattern Antalgic Decreased Stride Length Narrow Based Gait Factors Limiting Gait Function Factors Limiting Gait Function Limited Range of Motion Pain PT-OP-J Posture/Palpation/Skin Start: 11/11/17 12:08 Freq: Status: Active Protocol: Document 11/11/17 12:05 MDD (Rec: 11/11/17 12:35 MDD [email or web address]) Skin Assessment Circumference Measurement 2 Location L knee jointline Measurement (Centimeters) 42 1 Location R knee jointline Measurement (Centimeters) 46 Incisional Assessment Incision Appearance/Comments incision appears to be healing well, fully scabbed with no significant areas of redness Other Assessments Skin Assessment Comments moderate healing bruises in R knee and nguyen. Mildly decreased sensation in R LE distal to knee than L. PT-OP-K Range of Motion Start: 11/11/17 12:08 Freq: Status: Active Protocol: Document 11/22/17 14:30 RCC (Rec: 11/23/17 13:17 RCC [email or web address]) Knee Goniometric Range of Motion Knee Measured in Degrees Right Flexion Active (degrees) 101 Extension Active (degrees) 2 Knee ROM Limitations Knee ROM Limitations Soft Tissue Tightness Pain Swelling PT-OP-Q Treatments Start: 11/11/17 12:08 Freq: Status: Active Protocol: Document 11/26/17 11:15 DCW (Rec: 11/26/17 12:06 DCW [id number]) Cardio Equipment Recumbent Bicycle Duration (Minutes) 6 Resistance 0 Seat Position 3 Other Full rotation Gym Equipment Shuttle Recovery Unilateral Squats Resistance 37# Shuttle Recovery Platform Stable Bilateral Squats Resistance 75# Shuttle Recovery Platform Stable Therapeutic Ball 1 Exercise Details Knee flexion - stretch with strap Ball Size/Color Blue - 45 cm Body Position Supine Therapeutic Exercises Supine Exercises 3 Supine Exercise Name SLR Side bilateral Reps/Minutes 10 2 Supine Exercise Name Heel slides Side right Reps/Minutes 10 Standing Exercises 6 Standing Exercise Name standing hip abduction Side bilateral Resistance Lv 1 t-band (latex free) Reps/Minutes 10 5 Standing Exercise Name standing hip extension Side bilateral Resistance Lv 1 - tband (latex free) Reps/Minutes 10 1 Standing Exercise Name TKE Side right Resistance Lv 1 (latex free) Equipment Used T-Band Reps/Minutes 15 Manual Therapy Treatment Soft Tissue Mobilization scar tissue Body Location R anterior knee Mobilization Type Other Intensity/Depth Moderate Body Position Supine Joint Mobilizations 1 Joint PF joint Direction inferior, superior Grade III Body Position Supine PT-OP-R Modalities Start: 11/11/17 12:08 Freq: Status: Active Protocol: Document 11/26/17 11:15 DCW (Rec: 11/26/17 12:06 DCW [id number]) Electric Stimulation Electric Stimulation Interferential Current (IFC) Body Location R knee Duration (Minutes) 15 Intensity 21 Patient Position Hooklying Combined With Heat/Cold Cold Pack Comments bolster PT-OP-T Assessment and Plan Start: 11/11/17 12:08 Freq: Status: Active Protocol: Document 11/26/17 11:15 DCW (Rec: 11/26/17 12:06 DCW [id number]) Physical Therapy Assessment Impairments Impairments Activity Tolerance Edema Functional Mobility Gait Integument Pain ROM Sensation Soft Tissue Mobility Strength Goals 3 Impairment Activity tolerance Short Term Goal (STG) Pt to tolerate ambulating up to 1/2 mile with her dog in 4- 6 weeks. STG Duration 4 weeks Building Performance Consultant Goal (LTG) Pt to tolerate ambulating up to 2 miles with her dog. LTG Duration 12 weeks 2 Impairment Gait Short Term Goal (STG) Progress to gait on level ground with single point cane in 3-4 weeks. STG Duration 4 weeks Building Performance Consultant Goal (LTG) Progress to independent with no AD on level ground in 8 weeks. LTG Duration 8 One Impairment ROM Short Term Goal (STG) Improve R knee ROM to 0-90 degrees in 2-3 weeks. STG Duration 2 week Building Performance Consultant Goal (LTG) R knee ROM 0-130 in 6-8 weeks. LTG Duration 8 weeks Assessment Summary Assessment Pt tolerated more today, decreased complaints of pain, able to perform a complete rotation in the recumbent bicycle for the first time. Physical Therapy Plan Frequency and Duration Frequency of Treatment 2x/Week Duration of Treatment 12 weeks Plan of Care Start Date 11/11/17 Plan of Care End Date 02/03/18 Therapeutic Interventions Therapeutic Interventions Aquatic Therapy Gait Training Home Exercise Program Joint Mobilizations Manual Therapy Neuromuscular Re-education Self-Care/Home Management Soft Tissue Mobilization Therapeutic Activities Therapeutic Exercises Modalities Cold Pack/Ice Massage Electric Stimulation Next Visit Focus/Plan Next Note Type Treatment Note Next Visit Plan progress R knee ROM, LE strength, balance, and gait s/ p R TKA
--- NOTE | 2017-11-29 14:30 | PT.OTN ---
Current Diagnoses Presence of right artificial knee joint (11/29/17) Physical Therapy Treatment Note PT-OP-A Visit Information Start: 11/11/17 12:08 Freq: Status: Active Protocol: Document 11/29/17 14:30 RCC (Rec: 11/30/17 15:40 RCC [email or web address]) Out-Patient Physical Therapy Visit Information Visit Information Visit Type Treatment Note Visit Start Time 13:45 Visit Stop Time 14:45 Total Visit Minutes 60 Visit Number 6 Number of BARROW WORKER HELPER Visits 0 Evaluation Information Evaluation Date 11/11/17 PT-OP-B Current Condition Start: 11/11/17 12:08 Freq: Status: Active Protocol: Document 11/11/17 12:05 MDD (Rec: 11/11/17 12:35 MDD [email or web address]) Current Condition History of Current Condition Onset Date 11/05/17 Current Complaints R knee pain s/p R TKA History of Current Condition Pt had left knee replaced 1.5 years ago. Reports she had an arthroscopic surgery on the R knee in and didn't have any trouble with her R knee until she was rehabing her L knee replacement. Her surgery was performed on 11/05/[address] Peña at [facility]. Pt also reports history of R sciatic pain that was very aggravated before her surgery. She has not felt it recently , but is cautious about her movements because of it. Treatment Goals Patient/Caregiver Goals Pt would like to decrease pain , be able to return to riding her bike, walking her dog and swimming. 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 Current Functional Impairments (Reported) Functional Limitations- ADL's Difficulty standing up from low seat, rolling in bed Functional Limitations- Recreation/ unable to walk long distances Hobbies with her dog, bike or swim PT-OP-C Subjective Start: 11/11/17 12:08 Freq: Status: Active Protocol: Document 11/29/17 14:30 RCC (Rec: 11/30/17 15:40 RCC [email or web address]) OP-PT Subjective Patient Comments Patient Comments Pt stated that she was able to sleep in the bed for the first time last night without having to go out onto the couch. PT-OP-G Mobility & Gait Start: 11/11/17 12:08 Freq: Status: Active Protocol: Document 11/11/17 12:05 MDD (Rec: 11/11/17 12:35 MDD [email or web address]) OP Mobility Evaluation Bed Mobility Rolling Did not perform today. Supine to and from Sit guarded and slow OP Gait Assessment Gait Gait Assistance Required: Independent Distance (Feet) 30 Able to Maintain Weight Bearing Status Yes During Gait Assistive Devices Assistive Device Front Wheeled Walker Gait Deviations General Gait Pattern Antalgic Decreased Stride Length Narrow Based Gait Factors Limiting Gait Function Factors Limiting Gait Function Limited Range of Motion Pain PT-OP-J Posture/Palpation/Skin Start: 11/11/17 12:08 Freq: Status: Active Protocol: Document 11/11/17 12:05 MDD (Rec: 11/11/17 12:35 MDD [email or web address]) Skin Assessment Circumference Measurement 2 Location L knee jointline Measurement (Centimeters) 42 1 Location R knee jointline Measurement (Centimeters) 46 Incisional Assessment Incision Appearance/Comments incision appears to be healing well, fully scabbed with no significant areas of redness Other Assessments Skin Assessment Comments moderate healing bruises in R knee and nguyen. Mildly decreased sensation in R LE distal to knee than L. PT-OP-K Range of Motion Start: 11/11/17 12:08 Freq: Status: Active Protocol: Document 11/29/17 14:30 RCC (Rec: 11/30/17 15:40 RCC [email or web address]) Knee Goniometric Range of Motion Knee Measured in Degrees Right Flexion Active (degrees) 115 Extension Active (degrees) 2 PT-OP-Q Treatments Start: 11/11/17 12:08 Freq: Status: Active Protocol: Document 11/29/17 14:30 RCC (Rec: 11/30/17 15:40 RCC [email or web address]) Cardio Equipment Recumbent Bicycle Duration (Minutes) 10 Resistance 0 Seat Position 3 Other Full rotation Gym Equipment Therapeutic Ball 1 Exercise Details Knee flexion - stretch with strap Ball Size/Color Blue - 45 cm Body Position Supine Therapeutic Exercises Supine Exercises piriformis stretch Supine Exercise Name piriformis stretch Side right 6 Supine Exercise Name HS stretch Side right 5 Supine Exercise Name QS Side right Reps/Minutes 10 with 5 sec hold 3 Supine Exercise Name SLR Side bilateral Reps/Minutes 10 1 Supine Exercise Name SAQ Side right Reps/Minutes 10 Standing Exercises heel cord stretch Standing Exercise Name heel cord stretch Side bilateral Equipment Used VICKIE 1 Standing Exercise Name TKE Side right Resistance Lv 1 (latex free) Equipment Used T-Band Reps/Minutes 10 Comments increased LBP, sciatic therefore discontinued Manual Therapy Treatment Soft Tissue Mobilization scar tissue Body Location R anterior knee Mobilization Type Other Intensity/Depth Moderate Body Position Supine Joint Mobilizations 1 Joint PF joint Direction inferior, superior Grade III Body Position Supine PT-OP-R Modalities Start: 11/11/17 12:08 Freq: Status: Active Protocol: Document 11/29/17 14:30 RCC (Rec: 11/30/17 15:40 RCC [email or web address]) Electric Stimulation Electric Stimulation Interferential Current (IFC) Body Location R knee Duration (Minutes) 15 Intensity 24 Patient Position Hooklying Combined With Heat/Cold Cold Pack Comments bolster PT-OP-T Assessment and Plan Start: 11/11/17 12:08 Freq: Status: Active Protocol: Document 11/29/17 14:30 RCC (Rec: 11/30/17 15:40 [facility] [email or web address]) Physical Therapy Assessment Assessment Summary Assessment Pt with increased LBP and sciatic-like symptoms when performing TKE likely due to poor standing posture on initial reps. This exercise was discontinued and performed quad sets in supine without pain. Sciatic pain relieved with HS and piriformis stretch , no c/o pain in low back or sciatic nerve pathway after treatment. Physical Therapy Plan Frequency and Duration Frequency of Treatment 2x/Week Duration of Treatment 12 weeks Plan of Care Start Date 11/11/17 Plan of Care End Date 02/03/18 Next Visit Focus/Plan Next Note Type Treatment Note Next Visit Plan prog. R knee ROM (flex and extension), gait
--- NOTE | 2017-12-03 16:39 | PT.OTN ---
Current Diagnoses Presence of right artificial knee joint (12/03/17) Physical Therapy Treatment Note PT-OP-A Visit Information Start: 11/11/17 12:08 Freq: Status: Active Protocol: Document 12/03/17 10:31 GGD (Rec: 12/03/17 16:39 GGD [email or web address]) Out-Patient Physical Therapy Visit Information Visit Information Visit Type Treatment Note Visit Start Time 10:31 Visit Stop Time 11:20 Total Visit Minutes 49 Visit Number 7 Number of COKE WHEELER Visits 1 Evaluation Information Evaluation Date 11/11/17 PT-OP-B Current Condition Start: 11/11/17 12:08 Freq: Status: Active Protocol: Document 11/11/17 12:05 MDD (Rec: 11/11/17 12:35 MDD [email or web address]) Current Condition History of Current Condition Onset Date 11/05/17 Current Complaints R knee pain s/p R TKA History of Current Condition Pt had left knee replaced 1.5 years ago. Reports she had an arthroscopic surgery on the R knee in and didn't have any trouble with her R knee until she was rehabing her L knee replacement. Her surgery was performed on 11/05/[address] Peña at [facility]. Pt also reports history of R sciatic pain that was very aggravated before her surgery. She has not felt it recently , but is cautious about her movements because of it. Treatment Goals Patient/Caregiver Goals Pt would like to decrease pain , be able to return to riding her bike, walking her dog and swimming. 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 Current Functional Impairments (Reported) Functional Limitations- ADL's Difficulty standing up from low seat, rolling in bed Functional Limitations- Recreation/ unable to walk long distances Hobbies with her dog, bike or swim PT-OP-C Subjective Start: 11/11/17 12:08 Freq: Status: Active Protocol: Document 12/03/17 10:31 GGD (Rec: 12/03/17 16:39 GGD [email or web address]) OP-PT Subjective Patient Comments Patient Comments Pt states that she doing better and was able to walk her dog. PT-OP-G Mobility & Gait Start: 11/11/17 12:08 Freq: Status: Active Protocol: Document 11/11/17 12:05 MDD (Rec: 11/11/17 12:35 MDD [email or web address]) OP Mobility Evaluation Bed Mobility Rolling Did not perform today. Supine to and from Sit guarded and slow OP Gait Assessment Gait Gait Assistance Required: Independent Distance (Feet) 30 Able to Maintain Weight Bearing Status Yes During Gait Assistive Devices Assistive Device Front Wheeled Walker Gait Deviations General Gait Pattern Antalgic Decreased Stride Length Narrow Based Gait Factors Limiting Gait Function Factors Limiting Gait Function Limited Range of Motion Pain PT-OP-J Posture/Palpation/Skin Start: 11/11/17 12:08 Freq: Status: Active Protocol: Document 11/11/17 12:05 MDD (Rec: 11/11/17 12:35 MDD [email or web address]) Skin Assessment Circumference Measurement 2 Location L knee jointline Measurement (Centimeters) 42 1 Location R knee jointline Measurement (Centimeters) 46 Incisional Assessment Incision Appearance/Comments incision appears to be healing well, fully scabbed with no significant areas of redness Other Assessments Skin Assessment Comments moderate healing bruises in R knee and nguyen. Mildly decreased sensation in R LE distal to knee than L. PT-OP-K Range of Motion Start: 11/11/17 12:08 Freq: Status: Active Protocol: Document 11/29/17 14:30 RCC (Rec: 11/30/17 15:40 RCC [email or web address]) Knee Goniometric Range of Motion Knee Measured in Degrees Right Flexion Active (degrees) 115 Extension Active (degrees) 2 PT-OP-Q Treatments Start: 11/11/17 12:08 Freq: Status: Active Protocol: Document 12/03/17 10:31 GGD (Rec: 12/03/17 16:39 GGD [email or web address]) Cardio Equipment Recumbent Bicycle Duration (Minutes) 10 Resistance 0 Seat Position 3 Other Full rotation Gym Equipment Shuttle Recovery Unilateral Squats Resistance 37# Shuttle Recovery Platform Stable Bilateral Squats Resistance 62# Shuttle Recovery Platform Stable Therapeutic Ball 1 Exercise Details Knee flexion - stretch with strap Ball Size/Color Blue - 45 cm Body Position Supine Therapeutic Exercises Supine Exercises piriformis stretch Supine Exercise Name piriformis stretch Side right 6 Supine Exercise Name HS stretch Side right 3 Supine Exercise Name SLR with quad set Side bilateral Reps/Minutes 10 1 Supine Exercise Name SAQ Side right Reps/Minutes 10 Standing Exercises heel cord stretch Standing Exercise Name heel cord stretch Side bilateral Equipment Used VICKIE Manual Therapy Treatment Soft Tissue Mobilization scar tissue Body Location R anterior knee Mobilization Type Other Intensity/Depth Moderate Body Position Supine Joint Mobilizations 1 Joint PF joint Direction inferior, superior Grade III Body Position Supine PT-OP-R Modalities Start: 11/11/17 12:08 Freq: Status: Active Protocol: Document 12/03/17 10:31 GGD (Rec: 12/03/17 16:39 GGD [email or web address]) Hot Pack/Cold Pack Treatment Cold Pack Location right knee Patient Position Supine Treatment Duration (minutes) 10 Patient Tolerance Good PT-OP-T Assessment and Plan Start: 11/11/17 12:08 Freq: Status: Active Protocol: Document 12/03/17 10:31 GGD (Rec: 12/03/17 16:39 GGD [email or web address]) Physical Therapy Assessment Assessment Summary Assessment Pt had no LBP during treatment . Her knee ROM and strength is improving. Physical Therapy Plan Frequency and Duration Frequency of Treatment 2x/Week Duration of Treatment 12 weeks Plan of Care Start Date 11/11/17 Plan of Care End Date 02/03/18 Next Visit Focus/Plan Next Note Type Treatment Note Next Visit Plan prog. R knee ROM (flex and extension), R LE strengthening , and gait
--- NOTE | 2017-12-06 14:30 | PT.OTN ---
Current Diagnoses Presence of right artificial knee joint (12/06/17) Physical Therapy Treatment Note PT-OP-A Visit Information Start: 11/11/17 12:08 Freq: Status: Active Protocol: Document 12/06/17 14:30 RCC (Rec: 12/06/17 14:30 RCC [id number]) Out-Patient Physical Therapy Visit Information Visit Information Visit Type Treatment Note Visit Start Time 13:45 Visit Stop Time 14:35 Total Visit Minutes 50 Visit Number 8 Number of SOW MANAGER Visits 0 Evaluation Information Evaluation Date 11/11/17 PT-OP-B Current Condition Start: 11/11/17 12:08 Freq: Status: Active Protocol: Document 11/11/17 12:05 MDD (Rec: 11/11/17 12:35 MDD [email or web address]) Current Condition History of Current Condition Onset Date 11/05/17 Current Complaints R knee pain s/p R TKA History of Current Condition Pt had left knee replaced 1.5 years ago. Reports she had an arthroscopic surgery on the R knee in and didn't have any trouble with her R knee until she was rehabing her L knee replacement. Her surgery was performed on 11/05/[address] Peña at [facility]. Pt also reports history of R sciatic pain that was very aggravated before her surgery. She has not felt it recently , but is cautious about her movements because of it. Treatment Goals Patient/Caregiver Goals Pt would like to decrease pain , be able to return to riding her bike, walking her dog and swimming. 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 Current Functional Impairments (Reported) Functional Limitations- ADL's Difficulty standing up from low seat, rolling in bed Functional Limitations- Recreation/ unable to walk long distances Hobbies with her dog, bike or swim PT-OP-C Subjective Start: 11/11/17 12:08 Freq: Status: Active Protocol: Document 12/06/17 14:30 RCC (Rec: 12/06/17 14:30 RCC [id number]) OP-PT Subjective Patient Comments Patient Comments pt notes that her back has been acting up a little today. She is doing daily walks, about 15 min. PT-OP-G Mobility & Gait Start: 11/11/17 12:08 Freq: Status: Active Protocol: Document 11/11/17 12:05 MDD (Rec: 11/11/17 12:35 MDD [email or web address]) OP Mobility Evaluation Bed Mobility Rolling Did not perform today. Supine to and from Sit guarded and slow OP Gait Assessment Gait Gait Assistance Required: Independent Distance (Feet) 30 Able to Maintain Weight Bearing Status Yes During Gait Assistive Devices Assistive Device Front Wheeled Walker Gait Deviations General Gait Pattern Antalgic Decreased Stride Length Narrow Based Gait Factors Limiting Gait Function Factors Limiting Gait Function Limited Range of Motion Pain PT-OP-J Posture/Palpation/Skin Start: 11/11/17 12:08 Freq: Status: Active Protocol: Document 11/11/17 12:05 MDD (Rec: 11/11/17 12:35 MDD [email or web address]) Skin Assessment Circumference Measurement 2 Location L knee jointline Measurement (Centimeters) 42 1 Location R knee jointline Measurement (Centimeters) 46 Incisional Assessment Incision Appearance/Comments incision appears to be healing well, fully scabbed with no significant areas of redness Other Assessments Skin Assessment Comments moderate healing bruises in R knee and nguyen. Mildly decreased sensation in R LE distal to knee than L. PT-OP-K Range of Motion Start: 11/11/17 12:08 Freq: Status: Active Protocol: Document 12/06/17 14:30 RCC (Rec: 12/06/17 14:30 RCC [id number]) Knee Goniometric Range of Motion Knee Measured in Degrees Right Flexion Active (degrees) 121 Extension Active (degrees) 2 PT-OP-Q Treatments Start: 11/11/17 12:08 Freq: Status: Active Protocol: Document 12/06/17 14:30 RCC (Rec: 12/06/17 14:30 RCC [id number]) Cardio Equipment Bicycle (Upright) Duration (Minutes) 5 Resistance 2 Seat Position min Gym Equipment Cable Column (Body Solid) Leg Curl Resistance 2 plates Reps/Time x15 Shuttle Recovery Unilateral Squats Resistance 37# Shuttle Recovery Platform Stable Bilateral Squats Resistance 75# Shuttle Recovery Platform Stable Therapeutic Exercises Supine Exercises 7 Supine Exercise Name B knee flex/ext with 55 cm ball Side bilateral piriformis stretch Supine Exercise Name piriformis stretch Side right 6 Supine Exercise Name HS stretch Side right 5 Supine Exercise Name QS Side right Reps/Minutes 10 with 5 sec hold 3 Supine Exercise Name SLR with quad set Side bilateral Reps/Minutes 10 1 Supine Exercise Name SAQ Side right Reps/Minutes 10 Standing Exercises heel cord stretch Standing Exercise Name heel cord stretch Side bilateral Equipment Used VICKIE 2 Standing Exercise Name Flexion Step stretch Side right Manual Therapy Treatment Soft Tissue Mobilization scar tissue Body Location R anterior knee Mobilization Type Other Intensity/Depth Moderate Body Position Supine Joint Mobilizations 2 Joint tibiofemoral joint Direction inferior femur on tibia Grade III Body Position Supine PT-OP-R Modalities Start: 11/11/17 12:08 Freq: Status: Active Protocol: Document 12/06/17 14:30 RCC (Rec: 12/06/17 14:30 [facility] [id number]) Hot Pack/Cold Pack Treatment Cold Pack Location right knee & l/s Patient Position Supine Treatment Duration (minutes) 10 Patient Tolerance Good PT-OP-T Assessment and Plan Start: 11/11/17 12:08 Freq: Status: Active Protocol: Document 12/06/17 14:30 [facility] (Rec: 12/06/17 14:30 [facility] [id number]) Physical Therapy Assessment Assessment Summary Assessment Pt with improved knee flexion to 121 deg of AROM. She is still limited in extension by 2 degrees. Physical Therapy Plan Frequency and Duration Frequency of Treatment 2x/Week Duration of Treatment 12 weeks Plan of Care Start Date 11/11/17 Plan of Care End Date 02/03/18 Next Visit Focus/Plan Next Note Type Treatment Note Next Visit Plan cont. to progress ROM and strength of R knee.
--- NOTE | 2017-12-10 11:57 | PT.OTN ---
Current Diagnoses Presence of right artificial knee joint (12/10/17) Physical Therapy Treatment Note PT-OP-A Visit Information Start: 11/11/17 12:08 Freq: Status: Active Protocol: Document 12/10/17 11:15 DCW (Rec: 12/10/17 11:57 DCW [id number]) Out-Patient Physical Therapy Visit Information Visit Information Visit Type Treatment Note Visit Start Time 11:15 Visit Stop Time 12:05 Total Visit Minutes 50 Visit Number 9 Number of ADJUNCT TRAINER Visits 0 Evaluation Information Evaluation Date 11/11/17 PT-OP-B Current Condition Start: 11/11/17 12:08 Freq: Status: Active Protocol: Document 11/11/17 12:05 MDD (Rec: 11/11/17 12:35 MDD [email or web address]) Current Condition History of Current Condition Onset Date 11/05/17 Current Complaints R knee pain s/p R TKA History of Current Condition Pt had left knee replaced 1.5 years ago. Reports she had an arthroscopic surgery on the R knee in and didn't have any trouble with her R knee until she was rehabing her L knee replacement. Her surgery was performed on 11/05/[address] Peña at [facility]. Pt also reports history of R sciatic pain that was very aggravated before her surgery. She has not felt it recently , but is cautious about her movements because of it. Treatment Goals Patient/Caregiver Goals Pt would like to decrease pain , be able to return to riding her bike, walking her dog and swimming. 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 Current Functional Impairments (Reported) Functional Limitations- ADL's Difficulty standing up from low seat, rolling in bed Functional Limitations- Recreation/ unable to walk long distances Hobbies with her dog, bike or swim PT-OP-C Subjective Start: 11/11/17 12:08 Freq: Status: Active Protocol: Document 12/10/17 11:15 DCW (Rec: 12/10/17 11:57 DCW [id number]) OP-PT Subjective Patient Comments Patient Comments Pt reports she has had sciatic pain since her last PT visit. PT-OP-G Mobility & Gait Start: 11/11/17 12:08 Freq: Status: Active Protocol: Document 11/11/17 12:05 MDD (Rec: 11/11/17 12:35 MDD [email or web address]) OP Mobility Evaluation Bed Mobility Rolling Did not perform today. Supine to and from Sit guarded and slow OP Gait Assessment Gait Gait Assistance Required: Independent Distance (Feet) 30 Able to Maintain Weight Bearing Status Yes During Gait Assistive Devices Assistive Device Front Wheeled Walker Gait Deviations General Gait Pattern Antalgic Decreased Stride Length Narrow Based Gait Factors Limiting Gait Function Factors Limiting Gait Function Limited Range of Motion Pain PT-OP-J Posture/Palpation/Skin Start: 11/11/17 12:08 Freq: Status: Active Protocol: Document 11/11/17 12:05 MDD (Rec: 11/11/17 12:35 MDD [email or web address]) Skin Assessment Circumference Measurement 2 Location L knee jointline Measurement (Centimeters) 42 1 Location R knee jointline Measurement (Centimeters) 46 Incisional Assessment Incision Appearance/Comments incision appears to be healing well, fully scabbed with no significant areas of redness Other Assessments Skin Assessment Comments moderate healing bruises in R knee and nguyen. Mildly decreased sensation in R LE distal to knee than L. PT-OP-K Range of Motion Start: 11/11/17 12:08 Freq: Status: Active Protocol: Document 12/06/17 14:30 RCC (Rec: 12/06/17 14:30 RCC [id number]) Knee Goniometric Range of Motion Knee Measured in Degrees Right Flexion Active (degrees) 121 Extension Active (degrees) 2 PT-OP-Q Treatments Start: 11/11/17 12:08 Freq: Status: Active Protocol: Document 12/10/17 11:15 DCW (Rec: 12/10/17 11:57 DCW [id number]) Cardio Equipment Recumbent Bicycle Duration (Minutes) 6 Resistance 4 Seat Position 3 Gym Equipment Shuttle Recovery Unilateral Squats Resistance 37# Shuttle Recovery Platform Stable Bilateral Squats Resistance 75# Shuttle Recovery Platform Stable Therapeutic Ball 1 Exercise Details Knee flexion - stretch with strap Ball Size/Color Blue - 45 cm Body Position Supine Therapeutic Exercises Supine Exercises piriformis stretch Supine Exercise Name piriformis stretch Side right 3 Supine Exercise Name SLR with quad set Side bilateral Reps/Minutes 10 Standing Exercises heel cord stretch Standing Exercise Name heel cord stretch Side bilateral Equipment Used VICKIE 2 Standing Exercise Name Flexion Step stretch Side right Manual Therapy Treatment Joint Mobilizations 2 Joint tibiofemoral joint Direction inferior femur on tibia Grade III Body Position Supine 1 Joint PF joint Direction inferior, superior Grade III Body Position Supine PT-OP-R Modalities Start: 11/11/17 12:08 Freq: Status: Active Protocol: Document 12/10/17 11:15 DCW (Rec: 12/10/17 11:57 DCW [id number]) Electric Stimulation Electric Stimulation Interferential Current (IFC) Body Location R knee Duration (Minutes) 15 Intensity 24 Patient Position Hooklying Combined With Heat/Cold Cold Pack Comments bolster PT-OP-T Assessment and Plan Start: 11/11/17 12:08 Freq: Status: Active Protocol: Document 12/10/17 11:15 DCW (Rec: 12/10/17 11:57 DCW [id number]) Physical Therapy Assessment Impairments Impairments Activity Tolerance Edema Functional Mobility Gait Integument Pain ROM Sensation Soft Tissue Mobility Strength Goals 3 Impairment Activity tolerance Short Term Goal (STG) Pt to tolerate ambulating up to 1/2 mile with her dog in 4- 6 weeks. STG Duration 4 weeks Operations Staff Specialist Security Goal (LTG) Pt to tolerate ambulating up to 2 miles with her dog. LTG Duration 12 weeks 2 Impairment Gait Short Term Goal (STG) Progress to gait on level ground with single point cane in 3-4 weeks. STG Duration 4 weeks Operations Staff Specialist Security Goal (LTG) Progress to independent with no AD on level ground in 8 weeks. LTG Duration 8 One Impairment ROM Short Term Goal (STG) Improve R knee ROM to 0-90 degrees in 2-3 weeks. STG Duration 2 week Operations Staff Specialist Security Goal (LTG) R knee ROM 0-130 in 6-8 weeks. LTG Duration 8 weeks Assessment Summary Assessment Decreased tolerance to activity today with increased right knee pain and left sciatic pain. Worked on bilateral stretching, which pt reported provided some relief Physical Therapy Plan Frequency and Duration Frequency of Treatment 2x/Week Duration of Treatment 12 weeks Plan of Care Start Date 11/11/17 Plan of Care End Date 02/03/18 Therapeutic Interventions Therapeutic Interventions Aquatic Therapy Gait Training Home Exercise Program Joint Mobilizations Manual Therapy Neuromuscular Re-education Self-Care/Home Management Soft Tissue Mobilization Therapeutic Activities Therapeutic Exercises Modalities Cold Pack/Ice Massage Electric Stimulation Next Visit Focus/Plan Next Note Type Treatment Note Next Visit Plan cont. to progress ROM and strength of R knee.
--- NOTE | 2017-12-13 11:14 | PT.OTN ---
Current Diagnoses Presence of right artificial knee joint (12/13/17) Physical Therapy Treatment Note PT-OP-A Visit Information Start: 11/11/17 12:08 Freq: Status: Active Protocol: Document 12/13/17 10:30 DCW (Rec: 12/13/17 11:14 DCW [id number]) Out-Patient Physical Therapy Visit Information Visit Information Visit Type Treatment Note Visit Start Time 10:30 Visit Stop Time 11:25 Total Visit Minutes 55 Visit Number 10 Number of FRONT OFFICE CLERK Visits 0 Evaluation Information Evaluation Date 11/11/17 PT-OP-B Current Condition Start: 11/11/17 12:08 Freq: Status: Active Protocol: Document 11/11/17 12:05 MDD (Rec: 11/11/17 12:35 MDD [email or web address]) Current Condition History of Current Condition Onset Date 11/05/17 Current Complaints R knee pain s/p R TKA History of Current Condition Pt had left knee replaced 1.5 years ago. Reports she had an arthroscopic surgery on the R knee in and didn't have any trouble with her R knee until she was rehabing her L knee replacement. Her surgery was performed on 11/05/[address] Peña at [facility]. Pt also reports history of R sciatic pain that was very aggravated before her surgery. She has not felt it recently , but is cautious about her movements because of it. Treatment Goals Patient/Caregiver Goals Pt would like to decrease pain , be able to return to riding her bike, walking her dog and swimming. 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 Current Functional Impairments (Reported) Functional Limitations- ADL's Difficulty standing up from low seat, rolling in bed Functional Limitations- Recreation/ unable to walk long distances Hobbies with her dog, bike or swim PT-OP-C Subjective Start: 11/11/17 12:08 Freq: Status: Active Protocol: Document 12/13/17 10:30 DCW (Rec: 12/13/17 11:14 DCW [id number]) OP-PT Subjective Patient Comments Patient Comments Pt notes her knee is sore today, but her sciatic pain has improved. PT-OP-G Mobility & Gait Start: 11/11/17 12:08 Freq: Status: Active Protocol: Document 11/11/17 12:05 MDD (Rec: 11/11/17 12:35 MDD [email or web address]) OP Mobility Evaluation Bed Mobility Rolling Did not perform today. Supine to and from Sit guarded and slow OP Gait Assessment Gait Gait Assistance Required: Independent Distance (Feet) 30 Able to Maintain Weight Bearing Status Yes During Gait Assistive Devices Assistive Device Front Wheeled Walker Gait Deviations General Gait Pattern Antalgic Decreased Stride Length Narrow Based Gait Factors Limiting Gait Function Factors Limiting Gait Function Limited Range of Motion Pain PT-OP-J Posture/Palpation/Skin Start: 11/11/17 12:08 Freq: Status: Active Protocol: Document 11/11/17 12:05 MDD (Rec: 11/11/17 12:35 MDD [email or web address]) Skin Assessment Circumference Measurement 2 Location L knee jointline Measurement (Centimeters) 42 1 Location R knee jointline Measurement (Centimeters) 46 Incisional Assessment Incision Appearance/Comments incision appears to be healing well, fully scabbed with no significant areas of redness Other Assessments Skin Assessment Comments moderate healing bruises in R knee and nguyen. Mildly decreased sensation in R LE distal to knee than L. PT-OP-K Range of Motion Start: 11/11/17 12:08 Freq: Status: Active Protocol: Document 12/06/17 14:30 RCC (Rec: 12/06/17 14:30 RCC [id number]) Knee Goniometric Range of Motion Knee Measured in Degrees Right Flexion Active (degrees) 121 Extension Active (degrees) 2 PT-OP-Q Treatments Start: 11/11/17 12:08 Freq: Status: Active Protocol: Document 12/13/17 10:30 DCW (Rec: 12/13/17 11:14 DCW [id number]) Cardio Equipment Recumbent Bicycle Duration (Minutes) 6 Resistance 5 Seat Position 3 Gym Equipment Shuttle Recovery Unilateral Squats Resistance 50# Shuttle Recovery Platform Stable Bilateral Squats Resistance 75# Shuttle Recovery Platform Stable Therapeutic Ball 1 Exercise Details Knee flexion - stretch with strap Ball Size/Color Blue - 45 cm Body Position Supine Therapeutic Exercises Supine Exercises piriformis stretch Supine Exercise Name piriformis stretch Side right 3 Supine Exercise Name SLR with quad set Side bilateral Reps/Minutes 10 Standing Exercises heel cord stretch Standing Exercise Name heel cord stretch Side bilateral Equipment Used VICKIE 2 Standing Exercise Name Flexion Step stretch Side right Manual Therapy Treatment Soft Tissue Mobilization scar tissue Body Location R anterior knee Mobilization Type Other Intensity/Depth Moderate Body Position Supine Joint Mobilizations 2 Joint tibiofemoral joint Direction inferior femur on tibia Grade III Body Position Supine 1 Joint PF joint Direction inferior, superior Grade III Body Position Supine PT-OP-R Modalities Start: 11/11/17 12:08 Freq: Status: Active Protocol: Document 12/13/17 10:30 DCW (Rec: 12/13/17 11:14 DCW [id number]) Electric Stimulation Electric Stimulation Interferential Current (IFC) Body Location R knee Duration (Minutes) 15 Intensity 24 Patient Position Hooklying Combined With Heat/Cold Cold Pack Comments bolster PT-OP-T Assessment and Plan Start: 11/11/17 12:08 Freq: Status: Active Protocol: Document 12/13/17 10:30 DCW (Rec: 12/13/17 11:14 DCW [id number]) Physical Therapy Assessment Impairments Impairments Activity Tolerance Edema Functional Mobility Gait Integument Pain ROM Sensation Soft Tissue Mobility Strength Goals 3 Impairment Activity tolerance Short Term Goal (STG) Pt to tolerate ambulating up to 1/2 mile with her dog in 4- 6 weeks. STG Duration 4 weeks Precinct Captain Goal (LTG) Pt to tolerate ambulating up to 2 miles with her dog. LTG Duration 12 weeks 2 Impairment Gait Short Term Goal (STG) Progress to gait on level ground with single point cane in 3-4 weeks. STG Duration 4 weeks Precinct Captain Goal (LTG) Progress to independent with no AD on level ground in 8 weeks. LTG Duration 8 One Impairment ROM Short Term Goal (STG) Improve R knee ROM to 0-90 degrees in 2-3 weeks. STG Duration 2 week Precinct Captain Goal (LTG) R knee ROM 0-130 in 6-8 weeks. LTG Duration 8 weeks Assessment Summary Assessment Pt improved again, ROM doing very well, 126 degrees PROM, 122 degrees AROM. Physical Therapy Plan Frequency and Duration Frequency of Treatment 2x/Week Duration of Treatment 12 weeks Plan of Care Start Date 11/11/17 Plan of Care End Date 02/03/18 Therapeutic Interventions Therapeutic Interventions Aquatic Therapy Gait Training Home Exercise Program Joint Mobilizations Manual Therapy Neuromuscular Re-education Self-Care/Home Management Soft Tissue Mobilization Therapeutic Activities Therapeutic Exercises Modalities Cold Pack/Ice Massage Electric Stimulation Next Visit Focus/Plan Next Note Type Treatment Note Next Visit Plan cont. to progress ROM and strength of R knee.
--- NOTE | 2017-12-17 10:27 | PT.OTN ---
Current Diagnoses Presence of right artificial knee joint (12/17/17) Physical Therapy Treatment Note PT-OP-A Visit Information Start: 11/11/17 12:08 Freq: Status: Active Protocol: Document 12/17/17 09:35 DCW (Rec: 12/17/17 10:27 DCW [id number]) Out-Patient Physical Therapy Visit Information Visit Information Visit Type Treatment Note Visit Start Time 09:35 Visit Stop Time 10:30 Total Visit Minutes 55 Visit Number 11 Number of RADARMAN Visits 0 Evaluation Information Evaluation Date 11/11/17 PT-OP-B Current Condition Start: 11/11/17 12:08 Freq: Status: Active Protocol: Document 11/11/17 12:05 MDD (Rec: 11/11/17 12:35 MDD [email or web address]) Current Condition History of Current Condition Onset Date 11/05/17 Current Complaints R knee pain s/p R TKA History of Current Condition Pt had left knee replaced 1.5 years ago. Reports she had an arthroscopic surgery on the R knee in and didn't have any trouble with her R knee until she was rehabing her L knee replacement. Her surgery was performed on 11/05/[address] Peña at [facility]. Pt also reports history of R sciatic pain that was very aggravated before her surgery. She has not felt it recently , but is cautious about her movements because of it. Treatment Goals Patient/Caregiver Goals Pt would like to decrease pain , be able to return to riding her bike, walking her dog and swimming. 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 Current Functional Impairments (Reported) Functional Limitations- ADL's Difficulty standing up from low seat, rolling in bed Functional Limitations- Recreation/ unable to walk long distances Hobbies with her dog, bike or swim PT-OP-C Subjective Start: 11/11/17 12:08 Freq: Status: Active Protocol: Document 12/17/17 09:35 DCW (Rec: 12/17/17 10:27 DCW [id number]) OP-PT Subjective Patient Comments Patient Comments Pt continues to complain of leg pain secondary to sciatica PT-OP-G Mobility & Gait Start: 11/11/17 12:08 Freq: Status: Active Protocol: Document 11/11/17 12:05 MDD (Rec: 11/11/17 12:35 MDD [email or web address]) OP Mobility Evaluation Bed Mobility Rolling Did not perform today. Supine to and from Sit guarded and slow OP Gait Assessment Gait Gait Assistance Required: Independent Distance (Feet) 30 Able to Maintain Weight Bearing Status Yes During Gait Assistive Devices Assistive Device Front Wheeled Walker Gait Deviations General Gait Pattern Antalgic Decreased Stride Length Narrow Based Gait Factors Limiting Gait Function Factors Limiting Gait Function Limited Range of Motion Pain PT-OP-J Posture/Palpation/Skin Start: 11/11/17 12:08 Freq: Status: Active Protocol: Document 11/11/17 12:05 MDD (Rec: 11/11/17 12:35 MDD [email or web address]) Skin Assessment Circumference Measurement 2 Location L knee jointline Measurement (Centimeters) 42 1 Location R knee jointline Measurement (Centimeters) 46 Incisional Assessment Incision Appearance/Comments incision appears to be healing well, fully scabbed with no significant areas of redness Other Assessments Skin Assessment Comments moderate healing bruises in R knee and nguyen. Mildly decreased sensation in R LE distal to knee than L. PT-OP-K Range of Motion Start: 11/11/17 12:08 Freq: Status: Active Protocol: Document 12/06/17 14:30 RCC (Rec: 12/06/17 14:30 RCC [id number]) Knee Goniometric Range of Motion Knee Measured in Degrees Right Flexion Active (degrees) 121 Extension Active (degrees) 2 PT-OP-Q Treatments Start: 11/11/17 12:08 Freq: Status: Active Protocol: Document 12/17/17 09:35 DCW (Rec: 12/17/17 10:27 DCW [id number]) Cardio Equipment Recumbent Bicycle Duration (Minutes) 6 Resistance 5 Seat Position 3 Gym Equipment Shuttle Recovery Unilateral Squats Resistance 50# Shuttle Recovery Platform Stable Bilateral Squats Resistance 75# Shuttle Recovery Platform Stable Therapeutic Ball 1 Exercise Details Knee flexion - stretch with strap Ball Size/Color Blue - 45 cm Body Position Supine Therapeutic Exercises Supine Exercises piriformis stretch Supine Exercise Name piriformis stretch Side right 3 Supine Exercise Name SLR with quad set Side bilateral Reps/Minutes 10 Standing Exercises 8 Standing Exercise Name Step up/over/retro Side right Equipment Used 6 step 7 Standing Exercise Name BOSU lunge Side right Equipment Used BOSU (Blue) Manual Therapy Treatment Joint Mobilizations 2 Joint tibiofemoral joint Direction inferior femur on tibia Grade III Body Position Supine 1 Joint PF joint Direction inferior, superior Grade III Body Position Supine PT-OP-R Modalities Start: 11/11/17 12:08 Freq: Status: Active Protocol: Document 12/17/17 09:35 DCW (Rec: 12/17/17 10:27 DCW [id number]) Electric Stimulation Electric Stimulation Interferential Current (IFC) Body Location R knee Duration (Minutes) 15 Intensity 30 Patient Position Hooklying Combined With Heat/Cold Cold Pack Comments bolster PT-OP-T Assessment and Plan Start: 11/11/17 12:08 Freq: Status: Active Protocol: Document 12/17/17 09:35 DCW (Rec: 12/17/17 10:27 DCW [id number]) Physical Therapy Assessment Impairments Impairments Activity Tolerance Edema Functional Mobility Gait Integument Pain ROM Sensation Soft Tissue Mobility Strength Goals 3 Impairment Activity tolerance Short Term Goal (STG) Pt to tolerate ambulating up to 1/2 mile with her dog in 4- 6 weeks. STG Duration 4 weeks Rubber Attacher Goal (LTG) Pt to tolerate ambulating up to 2 miles with her dog. LTG Duration 12 weeks 2 Impairment Gait Short Term Goal (STG) Progress to gait on level ground with single point cane in 3-4 weeks. STG Duration 4 weeks Rubber Attacher Goal (LTG) Progress to independent with no AD on level ground in 8 weeks. LTG Duration 8 One Impairment ROM Short Term Goal (STG) Improve R knee ROM to 0-90 degrees in 2-3 weeks. STG Duration 2 week [facility] Goal (LTG) R knee ROM 0-130 in 6-8 weeks. LTG Duration 8 weeks Assessment Summary Assessment Pt displayed increased stiffness today and complaints of tenderness to palpation, however after manual therapy, pt ROM was close to her recent levels. Physical Therapy Plan Frequency and Duration Frequency of Treatment 2x/Week Duration of Treatment 12 weeks Plan of Care Start Date 11/11/17 Plan of Care End Date 02/03/18 Therapeutic Interventions Therapeutic Interventions Aquatic Therapy Gait Training Home Exercise Program Joint Mobilizations Manual Therapy Neuromuscular Re-education Self-Care/Home Management Soft Tissue Mobilization Therapeutic Activities Therapeutic Exercises Modalities Cold Pack/Ice Massage Electric Stimulation Next Visit Focus/Plan Next Note Type Treatment Note Next Visit Plan progress right knee ROM and strengthening
--- NOTE | 2017-12-20 11:15 | PT.OTN ---
Current Diagnoses Presence of right artificial knee joint (12/20/17) Physical Therapy Treatment Note PT-OP-A Visit Information Start: 11/11/17 12:08 Freq: Status: Active Protocol: Document 12/20/17 11:15 RCC (Rec: 12/22/17 13:26 RCC [email or web address]) Out-Patient Physical Therapy Visit Information Visit Information Visit Type Treatment Note Visit Start Time 10:30 Visit Stop Time 11:20 Total Visit Minutes 50 Visit Number 12 Number of BIOPROCESSING MANUFACTURING TECHNICIAN Visits 0 Evaluation Information Evaluation Date 11/11/17 PT-OP-B Current Condition Start: 11/11/17 12:08 Freq: Status: Active Protocol: Document 11/11/17 12:05 MDD (Rec: 11/11/17 12:35 MDD [email or web address]) Current Condition History of Current Condition Onset Date 11/05/17 Current Complaints R knee pain s/p R TKA History of Current Condition Pt had left knee replaced 1.5 years ago. Reports she had an arthroscopic surgery on the R knee in and didn't have any trouble with her R knee until she was rehabing her L knee replacement. Her surgery was performed on 11/05/[address] Peña at [facility]. Pt also reports history of R sciatic pain that was very aggravated before her surgery. She has not felt it recently , but is cautious about her movements because of it. Treatment Goals Patient/Caregiver Goals Pt would like to decrease pain , be able to return to riding her bike, walking her dog and swimming. 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 Current Functional Impairments (Reported) Functional Limitations- ADL's Difficulty standing up from low seat, rolling in bed Functional Limitations- Recreation/ unable to walk long distances Hobbies with her dog, bike or swim PT-OP-C Subjective Start: 11/11/17 12:08 Freq: Status: Active Protocol: Document 12/20/17 11:15 RCC (Rec: 12/22/17 13:26 RCC [email or web address]) OP-PT Subjective Patient Comments Patient Comments Pt states her sciatic has been a little better since she started taking Gabapentin. Her knee surgeon reports she is making good progress. PT-OP-G Mobility & Gait Start: 11/11/17 12:08 Freq: Status: Active Protocol: Document 11/11/17 12:05 MDD (Rec: 11/11/17 12:35 MDD [email or web address]) OP Mobility Evaluation Bed Mobility Rolling Did not perform today. Supine to and from Sit guarded and slow OP Gait Assessment Gait Gait Assistance Required: Independent Distance (Feet) 30 Able to Maintain Weight Bearing Status Yes During Gait Assistive Devices Assistive Device Front Wheeled Walker Gait Deviations General Gait Pattern Antalgic Decreased Stride Length Narrow Based Gait Factors Limiting Gait Function Factors Limiting Gait Function Limited Range of Motion Pain PT-OP-J Posture/Palpation/Skin Start: 11/11/17 12:08 Freq: Status: Active Protocol: Document 11/11/17 12:05 MDD (Rec: 11/11/17 12:35 MDD [email or web address]) Skin Assessment Circumference Measurement 2 Location L knee jointline Measurement (Centimeters) 42 1 Location R knee jointline Measurement (Centimeters) 46 Incisional Assessment Incision Appearance/Comments incision appears to be healing well, fully scabbed with no significant areas of redness Other Assessments Skin Assessment Comments moderate healing bruises in R knee and nguyen. Mildly decreased sensation in R LE distal to knee than L. PT-OP-K Range of Motion Start: 11/11/17 12:08 Freq: Status: Active Protocol: Document 12/20/17 11:15 RCC (Rec: 12/22/17 13:26 RCC [email or web address]) Knee Goniometric Range of Motion Knee Measured in Degrees Right Extension Active (degrees) 1 PT-OP-Q Treatments Start: 11/11/17 12:08 Freq: Status: Active Protocol: Document 12/20/17 11:15 RCC (Rec: 12/22/17 13:28 RCC [email or web address]) Cardio Equipment Recumbent Bicycle Duration (Minutes) 6 Resistance 5 Seat Position 3 Gym Equipment Shuttle Recovery Unilateral Squats Resistance 50# Shuttle Recovery Platform Stable Bilateral Squats Resistance 75# Shuttle Recovery Platform Stable Therapeutic Ball 1 Exercise Details Knee flexion - stretch with strap Ball Size/Color Blue - 45 cm Body Position Supine Therapeutic Exercises Standing Exercises heel raises Standing Exercise Name heel raises Side bilateral Reps/Minutes 25 heel cord stretch Standing Exercise Name heel cord stretch Side bilateral Equipment Used VICKIE Manual Therapy Treatment Soft Tissue Mobilization scar tissue Body Location R anterior knee Mobilization Type Other Intensity/Depth Moderate Body Position Supine Joint Mobilizations 2 Joint tibiofemoral joint Direction inferior femur on tibia Grade III Body Position Supine 1 Joint PF joint Direction inferior, superior Grade III Body Position Supine PT-OP-R Modalities Start: 11/11/17 12:08 Freq: Status: Active Protocol: Document 12/20/17 11:15 RCC (Rec: 12/22/17 13:26 RCC [email or web address]) Hot Pack/Cold Pack Treatment Cold Pack Location right knee Patient Position Supine Treatment Duration (minutes) 10 Patient Tolerance Good PT-OP-T Assessment and Plan Start: 11/11/17 12:08 Freq: Status: Active Protocol: Document 12/20/17 11:15 RCC (Rec: 12/22/17 13:26 [facility] [email or web address]) Physical Therapy Assessment Assessment Summary Assessment Pt still lacking 1 degree of extension in the R knee. Her mobility is still somewhat impaired secondary to R sided sciatic. Physical Therapy Plan Frequency and Duration Frequency of Treatment 2x/Week Duration of Treatment 12 weeks Plan of Care Start Date 11/11/17 Plan of Care End Date 02/03/18 Next Visit Focus/Plan Next Note Type Treatment Note Next Visit Plan prog. R knee extension and overall LE strength
--- NOTE | 2017-12-24 11:09 | PT.OTN ---
Current Diagnoses Presence of right artificial knee joint (12/24/17) Physical Therapy Treatment Note PT-OP-A Visit Information Start: 11/11/17 12:08 Freq: Status: Active Protocol: Document 12/24/17 10:30 DCW (Rec: 12/24/17 11:09 DCW [id number]) Out-Patient Physical Therapy Visit Information Visit Information Visit Type Treatment Note Visit Start Time 10:30 Visit Stop Time 11:20 Total Visit Minutes 50 Visit Number 13 Number of THEATRICAL VARIETY AGENT Visits 0 Evaluation Information Evaluation Date 11/11/17 PT-OP-B Current Condition Start: 11/11/17 12:08 Freq: Status: Active Protocol: Document 11/11/17 12:05 MDD (Rec: 11/11/17 12:35 MDD [email or web address]) Current Condition History of Current Condition Onset Date 11/05/17 Current Complaints R knee pain s/p R TKA History of Current Condition Pt had left knee replaced 1.5 years ago. Reports she had an arthroscopic surgery on the R knee in and didn't have any trouble with her R knee until she was rehabing her L knee replacement. Her surgery was performed on 11/05/[address] Peña at [facility]. Pt also reports history of R sciatic pain that was very aggravated before her surgery. She has not felt it recently , but is cautious about her movements because of it. Treatment Goals Patient/Caregiver Goals Pt would like to decrease pain , be able to return to riding her bike, walking her dog and swimming. 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 Current Functional Impairments (Reported) Functional Limitations- ADL's Difficulty standing up from low seat, rolling in bed Functional Limitations- Recreation/ unable to walk long distances Hobbies with her dog, bike or swim PT-OP-C Subjective Start: 11/11/17 12:08 Freq: Status: Active Protocol: Document 12/24/17 10:30 DCW (Rec: 12/24/17 11:09 DCW [id number]) OP-PT Subjective Patient Comments Patient Comments Pt reports increased pain and swelling starting yesterday, admits that she did not do a whole lot, and spent a lot of time in her chair with her legs back behind her. PT-OP-G Mobility & Gait Start: 11/11/17 12:08 Freq: Status: Active Protocol: Document 11/11/17 12:05 MDD (Rec: 11/11/17 12:35 MDD [email or web address]) OP Mobility Evaluation Bed Mobility Rolling Did not perform today. Supine to and from Sit guarded and slow OP Gait Assessment Gait Gait Assistance Required: Independent Distance (Feet) 30 Able to Maintain Weight Bearing Status Yes During Gait Assistive Devices Assistive Device Front Wheeled Walker Gait Deviations General Gait Pattern Antalgic Decreased Stride Length Narrow Based Gait Factors Limiting Gait Function Factors Limiting Gait Function Limited Range of Motion Pain PT-OP-J Posture/Palpation/Skin Start: 11/11/17 12:08 Freq: Status: Active Protocol: Document 11/11/17 12:05 MDD (Rec: 11/11/17 12:35 MDD [email or web address]) Skin Assessment Circumference Measurement 2 Location L knee jointline Measurement (Centimeters) 42 1 Location R knee jointline Measurement (Centimeters) 46 Incisional Assessment Incision Appearance/Comments incision appears to be healing well, fully scabbed with no significant areas of redness Other Assessments Skin Assessment Comments moderate healing bruises in R knee and nguyen. Mildly decreased sensation in R LE distal to knee than L. PT-OP-K Range of Motion Start: 11/11/17 12:08 Freq: Status: Active Protocol: Document 12/20/17 11:15 RCC (Rec: 12/22/17 13:26 RCC [email or web address]) Knee Goniometric Range of Motion Knee Measured in Degrees Right Extension Active (degrees) 1 PT-OP-Q Treatments Start: 11/11/17 12:08 Freq: Status: Active Protocol: Document 12/24/17 10:30 DCW (Rec: 12/24/17 11:09 DCW [id number]) Cardio Equipment Recumbent Bicycle Duration (Minutes) 6 Resistance 5 Seat Position 3 Gym Equipment Shuttle Recovery Unilateral Squats Resistance 50# Shuttle Recovery Platform Stable Bilateral Squats Resistance 87# Shuttle Recovery Platform Stable Therapeutic Exercises Standing Exercises 8 Standing Exercise Name Step up/over/retro Side right Equipment Used 6 step 7 Standing Exercise Name BOSU lunge Side right Equipment Used BOSU (Blue) Manual Therapy Treatment Soft Tissue Mobilization scar tissue Body Location R anterior knee Mobilization Type Other Intensity/Depth Moderate Body Position Supine Joint Mobilizations 2 Joint tibiofemoral joint Direction inferior femur on tibia Grade III Body Position Supine 1 Joint PF joint Direction inferior, superior Grade III Body Position Supine PT-OP-R Modalities Start: 11/11/17 12:08 Freq: Status: Active Protocol: Document 12/24/17 10:30 DCW (Rec: 12/24/17 11:09 DCW [id number]) Electric Stimulation Electric Stimulation Interferential Current (IFC) Body Location R knee Duration (Minutes) 15 Intensity 37 Patient Position Hooklying Combined With Heat/Cold Cold Pack Comments bolster PT-OP-T Assessment and Plan Start: 11/11/17 12:08 Freq: Status: Active Protocol: Document 12/24/17 10:30 DCW (Rec: 12/24/17 11:09 DCW [id number]) Physical Therapy Assessment Impairments Impairments Activity Tolerance Edema Functional Mobility Gait Integument Pain ROM Sensation Soft Tissue Mobility Strength Goals 3 Impairment Activity tolerance Short Term Goal (STG) Pt to tolerate ambulating up to 1/2 mile with her dog in 4- 6 weeks. STG Duration 4 weeks Planning Feeder Goal (LTG) Pt to tolerate ambulating up to 2 miles with her dog. LTG Duration 12 weeks 2 Impairment Gait Short Term Goal (STG) Progress to gait on level ground with single point cane in 3-4 weeks. STG Duration 4 weeks Usp Goal (LTG) Progress to independent with no AD on level ground in 8 weeks. LTG Duration 8 One Impairment ROM Short Term Goal (STG) Improve R knee ROM to 0-90 degrees in 2-3 weeks. STG Duration 2 week Usp Goal (LTG) R knee ROM 0-130 in 6-8 weeks. LTG Duration 8 weeks Assessment Summary Assessment Decreased tolerance to activity today, secondary to pain and stiffness. Pt right knee did appear more swollen today, decreased tolerance to PROM. Physical Therapy Plan Frequency and Duration Frequency of Treatment 2x/Week Duration of Treatment 12 weeks Plan of Care Start Date 11/11/17 Plan of Care End Date 02/03/18 Therapeutic Interventions Therapeutic Interventions Aquatic Therapy Gait Training Home Exercise Program Joint Mobilizations Manual Therapy Neuromuscular Re-education Self-Care/Home Management Soft Tissue Mobilization Therapeutic Activities Therapeutic Exercises Modalities Cold Pack/Ice Massage Electric Stimulation Next Visit Focus/Plan Next Note Type Treatment Note Next Visit Plan prog. R knee extension and overall LE strength
--- NOTE | 2017-12-27 11:15 | PT.OTN ---
Current Diagnoses Presence of right artificial knee joint (12/27/17) Physical Therapy Treatment Note PT-OP-A Visit Information Start: 11/11/17 12:08 Freq: Status: Active Protocol: Document 12/27/17 10:35 DCW (Rec: 12/27/17 11:15 DCW [id number]) Out-Patient Physical Therapy Visit Information Visit Information Visit Type Treatment Note Visit Note 5 minutes late Visit Start Time 10:35 Visit Stop Time 11:25 Total Visit Minutes 50 Visit Number 14 Number of DECISION SUPPORT ANALYST Visits 0 Evaluation Information Evaluation Date 11/11/17 PT-OP-B Current Condition Start: 11/11/17 12:08 Freq: Status: Active Protocol: Document 11/11/17 12:05 MDD (Rec: 11/11/17 12:35 MDD [email or web address]) Current Condition History of Current Condition Onset Date 11/05/17 Current Complaints R knee pain s/p R TKA History of Current Condition Pt had left knee replaced 1.5 years ago. Reports she had an arthroscopic surgery on the R knee in and didn't have any trouble with her R knee until she was rehabing her L knee replacement. Her surgery was performed on 11/05/[address] Peña at [facility]. Pt also reports history of R sciatic pain that was very aggravated before her surgery. She has not felt it recently , but is cautious about her movements because of it. Treatment Goals Patient/Caregiver Goals Pt would like to decrease pain , be able to return to riding her bike, walking her dog and swimming. 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 Current Functional Impairments (Reported) Functional Limitations- ADL's Difficulty standing up from low seat, rolling in bed Functional Limitations- Recreation/ unable to walk long distances Hobbies with her dog, bike or swim PT-OP-C Subjective Start: 11/11/17 12:08 Freq: Status: Active Protocol: Document 12/27/17 10:35 DCW (Rec: 12/27/17 11:15 DCW [id number]) OP-PT Subjective Patient Comments Patient Comments Pt notes that her knee is doing better today, her leg is not nearly as swollen as it was on Saturday. PT-OP-G Mobility & Gait Start: 11/11/17 12:08 Freq: Status: Active Protocol: Document 11/11/17 12:05 MDD (Rec: 11/11/17 12:35 MDD [email or web address]) OP Mobility Evaluation Bed Mobility Rolling Did not perform today. Supine to and from Sit guarded and slow OP Gait Assessment Gait Gait Assistance Required: Independent Distance (Feet) 30 Able to Maintain Weight Bearing Status Yes During Gait Assistive Devices Assistive Device Front Wheeled Walker Gait Deviations General Gait Pattern Antalgic Decreased Stride Length Narrow Based Gait Factors Limiting Gait Function Factors Limiting Gait Function Limited Range of Motion Pain PT-OP-J Posture/Palpation/Skin Start: 11/11/17 12:08 Freq: Status: Active Protocol: Document 11/11/17 12:05 MDD (Rec: 11/11/17 12:35 MDD [email or web address]) Skin Assessment Circumference Measurement 2 Location L knee jointline Measurement (Centimeters) 42 1 Location R knee jointline Measurement (Centimeters) 46 Incisional Assessment Incision Appearance/Comments incision appears to be healing well, fully scabbed with no significant areas of redness Other Assessments Skin Assessment Comments moderate healing bruises in R knee and nguyen. Mildly decreased sensation in R LE distal to knee than L. PT-OP-K Range of Motion Start: 11/11/17 12:08 Freq: Status: Active Protocol: Document 12/20/17 11:15 RCC (Rec: 12/22/17 13:26 RCC [email or web address]) Knee Goniometric Range of Motion Knee Measured in Degrees Right Extension Active (degrees) 1 PT-OP-Q Treatments Start: 11/11/17 12:08 Freq: Status: Active Protocol: Document 12/27/17 10:35 DCW (Rec: 12/27/17 11:15 DCW [id number]) Cardio Equipment Recumbent Bicycle Duration (Minutes) 8 Resistance 5 Seat Position 3 Gym Equipment Cable Column (Body Solid) Hip Adduction Resistance 50# Hip Abduction Resistance 40# Shuttle Recovery Unilateral Squats Resistance 50# Shuttle Recovery Platform Stable Bilateral Squats Resistance 100# Shuttle Recovery Platform Stable Therapeutic Ball 1 Exercise Details Knee flexion - stretch with strap Ball Size/Color Blue - 45 cm Body Position Supine Therapeutic Exercises Supine Exercises 3 Supine Exercise Name SLR with quad set Side bilateral Reps/Minutes 10 Manual Therapy Treatment Soft Tissue Mobilization scar tissue Body Location R anterior knee Mobilization Type Other Intensity/Depth Moderate Body Position Supine Joint Mobilizations 2 Joint tibiofemoral joint Direction inferior femur on tibia Grade III Body Position Supine 1 Joint PF joint Direction inferior, superior Grade III Body Position Supine PT-OP-R Modalities Start: 11/11/17 12:08 Freq: Status: Active Protocol: Document 12/27/17 10:35 DCW (Rec: 12/27/17 11:15 DCW [id number]) Electric Stimulation Electric Stimulation Interferential Current (IFC) Body Location R knee Duration (Minutes) 15 Intensity 37 Patient Position Hooklying Combined With Heat/Cold Cold Pack Comments bolster PT-OP-T Assessment and Plan Start: 11/11/17 12:08 Freq: Status: Active Protocol: Document 12/27/17 10:35 DCW (Rec: 12/27/17 11:15 DCW [id number]) Physical Therapy Assessment Impairments Impairments Activity Tolerance Edema Functional Mobility Gait Integument Pain ROM Sensation Soft Tissue Mobility Strength Goals 3 Impairment Activity tolerance Short Term Goal (STG) Pt to tolerate ambulating up to 1/2 mile with her dog in 4- 6 weeks. STG Duration Met Usp Goal (LTG) Pt to tolerate ambulating up to 2 miles with her dog. LTG Duration 12 weeks 2 Impairment Gait Short Term Goal (STG) Progress to gait on level ground with single point cane in 3-4 weeks. STG Duration Met Photoresist Contact Printer Goal (LTG) Progress to independent with no AD on level ground in 8 weeks. LTG Duration Met One Impairment ROM Short Term Goal (STG) Improve R knee ROM to 0-90 degrees in 2-3 weeks. STG Duration Met Photoresist Contact Printer Goal (LTG) R knee ROM 0-130 in 6-8 weeks. LTG Duration 8 weeks Progress Towards Goals Progress Towards Goals Progressing Toward Goals Assessment Summary Assessment Pt continues to improve, approaching goals, but still needs to increase gait distance tolerance and active flexion. Physical Therapy Plan Frequency and Duration Frequency of Treatment 2x/Week Duration of Treatment 12 weeks Plan of Care Start Date 11/11/17 Plan of Care End Date 02/03/18 Therapeutic Interventions Therapeutic Interventions Aquatic Therapy Gait Training Home Exercise Program Joint Mobilizations Manual Therapy Neuromuscular Re-education Self-Care/Home Management Soft Tissue Mobilization Therapeutic Activities Therapeutic Exercises Modalities Cold Pack/Ice Massage Electric Stimulation Next Visit Focus/Plan Next Note Type Treatment Note Next Visit Plan prog. R knee extension and overall LE strength
--- NOTE | 2017-12-30 16:09 | PT.OTN ---
Current Diagnoses Presence of right artificial knee joint (12/30/17) Physical Therapy Treatment Note PT-OP-A Visit Information Start: 11/11/17 12:08 Freq: Status: Active Protocol: Document 12/30/17 15:15 SAK (Rec: 12/30/17 16:09 [facility] [id number]) Out-Patient Physical Therapy Visit Information Visit Information Visit Type Treatment Note Visit Start Time 15:15 Visit Stop Time 16:10 Total Visit Minutes 55 Visit Number 15 Number of ICT HELP DESK OFFICER Visits 0 Evaluation Information Evaluation Date 11/11/17 PT-OP-B Current Condition Start: 11/11/17 12:08 Freq: Status: Active Protocol: Document 11/11/17 12:05 MDD (Rec: 11/11/17 12:35 MDD [email or web address]) Current Condition History of Current Condition Onset Date 11/05/17 Current Complaints R knee pain s/p R TKA History of Current Condition Pt had left knee replaced 1.5 years ago. Reports she had an arthroscopic surgery on the R knee in and didn't have any trouble with her R knee until she was rehabing her L knee replacement. Her surgery was performed on 11/05/[address] Peña at [facility]. Pt also reports history of R sciatic pain that was very aggravated before her surgery. She has not felt it recently , but is cautious about her movements because of it. Treatment Goals Patient/Caregiver Goals Pt would like to decrease pain , be able to return to riding her bike, walking her dog and swimming. 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 Current Functional Impairments (Reported) Functional Limitations- ADL's Difficulty standing up from low seat, rolling in bed Functional Limitations- Recreation/ unable to walk long distances Hobbies with her dog, bike or swim PT-OP-C Subjective Start: 11/11/17 12:08 Freq: Status: Active Protocol: Document 12/30/17 15:15 SAK (Rec: 12/30/17 16:09 SAK [id number]) OP-PT Subjective Patient Comments Patient Comments Sciatic pain better with medication. Can sleep now without pillow between knees now. PT-OP-G Mobility & Gait Start: 11/11/17 12:08 Freq: Status: Active Protocol: Document 11/11/17 12:05 MDD (Rec: 11/11/17 12:35 MDD [email or web address]) OP Mobility Evaluation Bed Mobility Rolling Did not perform today. Supine to and from Sit guarded and slow OP Gait Assessment Gait Gait Assistance Required: Independent Distance (Feet) 30 Able to Maintain Weight Bearing Status Yes During Gait Assistive Devices Assistive Device Front Wheeled Walker Gait Deviations General Gait Pattern Antalgic Decreased Stride Length Narrow Based Gait Factors Limiting Gait Function Factors Limiting Gait Function Limited Range of Motion Pain PT-OP-J Posture/Palpation/Skin Start: 11/11/17 12:08 Freq: Status: Active Protocol: Document 11/11/17 12:05 MDD (Rec: 11/11/17 12:35 MDD [email or web address]) Skin Assessment Circumference Measurement 2 Location L knee jointline Measurement (Centimeters) 42 1 Location R knee jointline Measurement (Centimeters) 46 Incisional Assessment Incision Appearance/Comments incision appears to be healing well, fully scabbed with no significant areas of redness Other Assessments Skin Assessment Comments moderate healing bruises in R knee and nguyen. Mildly decreased sensation in R LE distal to knee than L. PT-OP-K Range of Motion Start: 11/11/17 12:08 Freq: Status: Active Protocol: Document 12/20/17 11:15 RCC (Rec: 12/22/17 13:26 RCC [email or web address]) Knee Goniometric Range of Motion Knee Measured in Degrees Right Extension Active (degrees) 1 PT-OP-Q Treatments Start: 11/11/17 12:08 Freq: Status: Active Protocol: Document 12/30/17 15:15 SAK (Rec: 12/30/17 16:09 SAK [id number]) Cardio Equipment Recumbent Bicycle Duration (Minutes) 8 Resistance 5 Seat Position 3 Gym Equipment Cable Column (Body Solid) Hip Adduction Resistance 50# Hip Abduction Resistance 40# Shuttle Recovery Unilateral Squats Resistance 50# Shuttle Recovery Platform Stable Bilateral Squats Resistance 100# Shuttle Recovery Platform Stable Therapeutic Ball 1 Exercise Details Knee flexion - stretch with strap Ball Size/Color Blue - 45 cm Body Position Supine Therapeutic Exercises Supine Exercises 3 Supine Exercise Name SLR with quad set Side bilateral Reps/Minutes 10 Sitting Exercises 1 Sitting Exercise Name knee flex Resistance TB Comments 10x Standing Exercises 7 Standing Exercise Name BOSU lunge Side right Equipment Used BOSU (Blue) heel cord stretch Standing Exercise Name heel cord stretch Side bilateral Equipment Used VICKIE Manual Therapy Treatment Soft Tissue Mobilization scar tissue Body Location R anterior knee Mobilization Type Other Intensity/Depth Moderate Body Position Supine Joint Mobilizations 2 Joint tibiofemoral joint Direction inferior femur on tibia Grade III Body Position Supine 1 Joint PF joint Direction inferior, superior Grade III Body Position Supine PT-OP-R Modalities Start: 11/11/17 12:08 Freq: Status: Active Protocol: Document 12/30/17 15:15 [facility] (Rec: 12/30/17 16:09 [facility] [id number]) Electric Stimulation Electric Stimulation Interferential Current (IFC) Body Location R knee Duration (Minutes) 15 Intensity 37 Patient Position Hooklying Combined With Heat/Cold Cold Pack Comments bolster PT-OP-T Assessment and Plan Start: 11/11/17 12:08 Freq: Status: Active Protocol: Document 12/30/17 15:15 [facility] (Rec: 12/30/17 16:09 [facility] [id number]) Physical Therapy Assessment Impairments Impairments Activity Tolerance Edema Functional Mobility Gait Integument Pain ROM Sensation Soft Tissue Mobility Strength Goals 3 Impairment Activity tolerance Short Term Goal (STG) Pt to tolerate ambulating up to 1/2 mile with her dog in 4- 6 weeks. STG Duration Met Senior Living Goal (LTG) Pt to tolerate ambulating up to 2 miles with her dog. LTG Duration 12 weeks 2 Impairment Gait Short Term Goal (STG) Progress to gait on level ground with single point cane in 3-4 weeks. STG Duration Met Senior Living Goal (LTG) Progress to independent with no AD on level ground in 8 weeks. LTG Duration Met One Impairment ROM Short Term Goal (STG) Improve R knee ROM to 0-90 degrees in 2-3 weeks. STG Duration Met Magazine Hand Goal (LTG) R knee ROM 0-130 in 6-8 weeks. LTG Duration 8 weeks Progress Towards Goals Progress Towards Goals Progressing Toward Goals Assessment Summary Assessment Palpable tightness distal lateral quad, improved with manual techniques. Patient reported increased difficulty with shuttle recovery today. Physical Therapy Plan Frequency and Duration Frequency of Treatment 2x/Week Duration of Treatment 12 weeks Plan of Care Start Date 11/11/17 Plan of Care End Date 02/03/18 Therapeutic Interventions Therapeutic Interventions Aquatic Therapy Gait Training Home Exercise Program Joint Mobilizations Manual Therapy Neuromuscular Re-education Self-Care/Home Management Soft Tissue Mobilization Therapeutic Activities Therapeutic Exercises Modalities Cold Pack/Ice Massage Electric Stimulation Next Visit Focus/Plan Next Note Type Treatment Note Next Visit Plan Continue TKA rehab per POC.
--- NOTE | 2018-01-06 13:53 | PT.OTN ---
Current Diagnoses Presence of right artificial knee joint (01/06/18) Physical Therapy Treatment Note PT-OP-A Visit Information Start: 11/11/17 12:08 Freq: Status: Active Protocol: Document 01/06/18 12:19 EA (Rec: 01/06/18 13:02 EA [id number]) Out-Patient Physical Therapy Visit Information Visit Information Visit Type Treatment Note Visit Start Time 12:15 Visit Stop Time 12:45 Total Visit Minutes 38 Visit Number 16 Number of CLOTH FOLDER HAND Visits 0 PT-OP-B Current Condition Start: 11/11/17 12:08 Freq: Status: Active Protocol: Document 11/11/17 12:05 MDD (Rec: 11/11/17 12:35 MDD [id number]) Current Condition History of Current Condition Onset Date 11/05/17 Current Complaints R knee pain s/p R TKA History of Current Condition Pt had left knee replaced 1.5 years ago. Reports she had an arthroscopic surgery on the R knee in and didn't have any trouble with her R knee until she was rehabing her L knee replacement. Her surgery was performed on 11/05/[address] Peña at [facility]. Pt also reports history of R sciatic pain that was very aggravated before her surgery. She has not felt it recently , but is cautious about her movements because of it. Treatment Goals Patient/Caregiver Goals Pt would like to decrease pain , be able to return to riding her bike, walking her dog and swimming. 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 Current Functional Impairments (Reported) Functional Limitations- ADL's Difficulty standing up from low seat, rolling in bed Functional Limitations- Recreation/ unable to walk long distances Hobbies with her dog, bike or swim PT-OP-C Subjective Start: 11/11/17 12:08 Freq: Status: Active Protocol: Document 01/06/18 12:19 EA (Rec: 01/06/18 13:02 EA [id number]) OP-PT Subjective Patient Comments Patient Comments Pt reports unable to sleep well as she was in the E.R due to UTI; states very scared that infection might get in to the knee. Patient states that she was able to walk the dog > 1/2 mile today; reports pain and tenderness is quite increased after the walk. Patient Reported Progress Improving PT-OP-G Mobility & Gait Start: 11/11/17 12:08 Freq: Status: Active Protocol: Document 01/06/18 12:19 EA (Rec: 01/06/18 13:02 EA [id number]) OP Gait Assessment Gait Gait Assistance Required: Independent Distance (Feet) 30 Able to Maintain Weight Bearing Status Yes During Gait Assistive Devices Assistive Device Front Wheeled Walker Gait Deviations General Gait Pattern Antalgic Decreased Stride Length Narrow Based Gait Factors Limiting Gait Function Factors Limiting Gait Function Limited Range of Motion Pain PT-OP-J Posture/Palpation/Skin Start: 11/11/17 12:08 Freq: Status: Active Protocol: Document 01/06/18 12:19 EA (Rec: 01/06/18 13:02 EA [id number]) Palpation Assessment Location One Palpation Location R ITB Palpation Findings Tenderness Palpation Details Grade 3/4 PT-OP-K Range of Motion Start: 11/11/17 12:08 Freq: Status: Active Protocol: Document 01/06/18 12:19 EA (Rec: 01/06/18 13:02 EA [id number]) Knee Goniometric Range of Motion Knee Measured in Degrees Right Flexion Active (degrees) 125 Flexion Passive (degrees) 130 Extension Active (degrees) 0 Left Knee ROM WFL Yes Patient Position Supine Flexion Active (degrees) 130 Flexion Passive (degrees) 132 Extension Active (degrees) 0 Extension Passive (degrees) 0 Knee ROM Limitations Knee ROM Limitations Soft Tissue Tightness Pain Swelling PT-OP-Q Treatments Start: 11/11/17 12:08 Freq: Status: Active Protocol: Document 01/06/18 12:19 EA (Rec: 01/06/18 13:02 EA [id number]) Cardio Equipment Bicycle (Upright) Duration (Minutes) 7 Resistance 2 Seat Position 3 Gym Equipment Shuttle Recovery Unilateral Squats Resistance 12.5 Shuttle Recovery Platform Stable Reps/Time pain with more than 25 Bilateral Squats Resistance 62# Shuttle Recovery Platform Stable Reps/Time Pain increased with more than 65# Therapeutic Exercises Supine Exercises 3 Supine Exercise Name SLR with quad set Side bilateral Reps/Minutes 10 PT-OP-R Modalities Start: 11/11/17 12:08 Freq: Status: Active Protocol: Document 01/06/18 12:19 EA (Rec: 01/06/18 13:02 EA [id number]) Electric Stimulation Electric Stimulation Interferential Current (IFC) Body Location R knee Duration (Minutes) 15 Intensity 26 Patient Position Hooklying Combined With Heat/Cold Cold Pack Comments bolster PT-OP-T Assessment and Plan Start: 11/11/17 12:08 Freq: Status: Active Protocol: Document 01/06/18 12:19 EA (Rec: 01/06/18 13:02 EA [id number]) Physical Therapy Assessment Rehab Potential Rehabilitation Potential Good Goals 3 Impairment Activity tolerance Short Term Goal (STG) Pt to tolerate ambulating up to 1/2 mile with her dog in 4- 6 weeks. STG Duration Met Mcc Goal (LTG) Pt to tolerate ambulating up to 2 miles with her dog. LTG Duration 4 wks 2 Impairment Gait Short Term Goal (STG) Progress to gait on level ground with single point cane in 3-4 weeks. STG Duration Met Fire Engine Pump Operator Goal (LTG) Progress to independent with no AD on level ground in 8 weeks. LTG Duration Met One Impairment ROM Short Term Goal (STG) Improve R knee ROM to 0-90 degrees in 2-3 weeks. STG Duration Met Fire Engine Pump Operator Goal (LTG) R knee ROM 0-130 activein 6-8 weeks. LTG Duration 4 wk Assessment Summary Assessment Patient right knee is very sensitive to touch today and unable to tolerate strengthening exercises in standing. However, patient have reached most of the goals set in the weeks prior to today's date. R ITB insertion is tender touch and tight. Recommends to ICE the knee often. Overall patient is progressing steady and will cont. to benefit with skilled PT. Physical Therapy Plan Next Visit Focus/Plan Next Note Type Treatment Note
--- NOTE | 2018-01-08 13:15 | PT.OTN ---
Current Diagnoses Presence of right artificial knee joint (01/08/18) Physical Therapy Treatment Note PT-OP-A Visit Information Start: 11/11/17 12:08 Freq: Status: Active Protocol: Document 01/08/18 11:12 EA (Rec: 01/08/18 11:15 EA [id number]) Out-Patient Physical Therapy Visit Information Visit Information Visit Type Treatment Note Visit Start Time 10:30 Visit Stop Time 11:25 Total Visit Minutes 55 Visit Number 17 Number of HEAD OF LOSS PREVENTION Visits 0 PT-OP-B Current Condition Start: 11/11/17 12:08 Freq: Status: Active Protocol: Document 11/11/17 12:05 MDD (Rec: 11/11/17 12:35 MDD [id number]) Current Condition History of Current Condition Onset Date 11/05/17 Current Complaints R knee pain s/p R TKA History of Current Condition Pt had left knee replaced 1.5 years ago. Reports she had an arthroscopic surgery on the R knee in and didn't have any trouble with her R knee until she was rehabing her L knee replacement. Her surgery was performed on 11/05/[address] Peña at [facility]. Pt also reports history of R sciatic pain that was very aggravated before her surgery. She has not felt it recently , but is cautious about her movements because of it. Treatment Goals Patient/Caregiver Goals Pt would like to decrease pain , be able to return to riding her bike, walking her dog and swimming. 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 Current Functional Impairments (Reported) Functional Limitations- ADL's Difficulty standing up from low seat, rolling in bed Functional Limitations- Recreation/ unable to walk long distances Hobbies with her dog, bike or swim PT-OP-C Subjective Start: 11/11/17 12:08 Freq: Status: Active Protocol: Document 01/08/18 11:12 EA (Rec: 01/08/18 11:15 EA [id number]) OP-PT Subjective Patient Comments Patient Comments Pt reports took pain meds today and pain is much less; states she reliazed that shoes previously she used was the main reason thata aggravated the knee symptoms. PT-OP-G Mobility & Gait Start: 11/11/17 12:08 Freq: Status: Active Protocol: Document 01/06/18 12:19 EA (Rec: 01/06/18 13:02 EA [id number]) OP Gait Assessment Gait Gait Assistance Required: Independent Distance (Feet) 30 Able to Maintain Weight Bearing Status Yes During Gait Assistive Devices Assistive Device Front Wheeled Walker Gait Deviations General Gait Pattern Antalgic Decreased Stride Length Narrow Based Gait Factors Limiting Gait Function Factors Limiting Gait Function Limited Range of Motion Pain PT-OP-J Posture/Palpation/Skin Start: 11/11/17 12:08 Freq: Status: Active Protocol: Document 01/06/18 12:19 EA (Rec: 01/06/18 13:02 EA [id number]) Palpation Assessment Location One Palpation Location R ITB Palpation Findings Tenderness Palpation Details Grade 3/4 PT-OP-K Range of Motion Start: 11/11/17 12:08 Freq: Status: Active Protocol: Document 01/06/18 12:19 EA (Rec: 01/06/18 13:02 EA [id number]) Knee Goniometric Range of Motion Knee Measured in Degrees Right Flexion Active (degrees) 125 Flexion Passive (degrees) 130 Extension Active (degrees) 0 Left Knee ROM WFL Yes Patient Position Supine Flexion Active (degrees) 130 Flexion Passive (degrees) 132 Extension Active (degrees) 0 Extension Passive (degrees) 0 Knee ROM Limitations Knee ROM Limitations Soft Tissue Tightness Pain Swelling PT-OP-Q Treatments Start: 11/11/17 12:08 Freq: Status: Active Protocol: Document 01/08/18 13:07 EA (Rec: 01/08/18 13:14 EA [id number]) Cardio Equipment Recumbent Elliptical (Biodex) Duration (Minutes) 7 Resistance 4 Gym Equipment Cable Column (Body Solid) Hip Adduction Resistance 50# Hip Abduction Resistance 40# Shuttle Recovery Unilateral Squats Resistance 37 Shuttle Recovery Platform Stable Bilateral Squats Resistance 100# Shuttle Recovery Platform Stable Therapeutic Ball 1 Exercise Details Knee flexion - stretch with strap Ball Size/Color Blue - 45 cm Body Position Supine Therapeutic Exercises Supine Exercises 3 Supine Exercise Name SLR with quad set Side bilateral Reps/Minutes 10 Sitting Exercises 1 Sitting Exercise Name EOB FAQ Resistance 5 lbs AW Reps/Minutes x 10 reps x 2 sets Standing Exercises 9 Standing Exercise Name 4 steps down and up backward leading left Reps/Minutes x 10 reps x 2 sets 8 Standing Exercise Name Step up/over/retro Side right Equipment Used 6 step 7 Standing Exercise Name BOSU step up and down w/ hand support Side bilateral Equipment Used BOSU (Blue) Reps/Minutes x 30 secs x 3 reps heel cord stretch Standing Exercise Name heel cord stretch Side bilateral Equipment Used VICKIE 1 Standing Exercise Name Rails side stepos squat w/ heel raises Resistance YTB Reps/Minutes x 2 lines PT-OP-R Modalities Start: 11/11/17 12:08 Freq: Status: Active Protocol: Document 01/08/18 13:07 EA (Rec: 01/08/18 13:14 EA [id number]) Electric Stimulation Electric Stimulation Interferential Current (IFC) Body Location R knee Duration (Minutes) 15 Intensity 26 Patient Position Hooklying Combined With Heat/Cold Cold Pack Comments bolster PT-OP-T Assessment and Plan Start: 11/11/17 12:08 Freq: Status: Active Protocol: Document 01/08/18 13:07 EA (Rec: 01/08/18 13:14 EA [id number]) Physical Therapy Assessment Assessment Summary Assessment Pt tolerated therex with minor discomfort during unilateral leg press. Overall patient is progressing well toward goals. Physical Therapy Plan Next Visit Focus/Plan Next Note Type Treatment Note Next Visit Plan Continue TKA rehab per POC.
--- NOTE | 2018-01-13 08:57 | PT.OTN ---
Current Diagnoses Presence of right artificial knee joint (01/13/18) Physical Therapy Treatment Note PT-OP-A Visit Information Start: 11/11/17 12:08 Freq: Status: Active Protocol: Document 01/13/18 08:15 AMB (Rec: 01/13/18 08:23 AMB [id number]) Out-Patient Physical Therapy Visit Information Visit Information Visit Type Treatment Note Visit Start Time 08:15 Visit Stop Time 09:10 Total Visit Minutes 55 Visit Number 18 Number of TRADE SHOW COORDINATOR Visits 0 PT-OP-B Current Condition Start: 11/11/17 12:08 Freq: Status: Active Protocol: Document 11/11/17 12:05 MDD (Rec: 11/11/17 12:35 MDD [id number]) Current Condition History of Current Condition Onset Date 11/05/17 Current Complaints R knee pain s/p R TKA History of Current Condition Pt had left knee replaced 1.5 years ago. Reports she had an arthroscopic surgery on the R knee in and didn't have any trouble with her R knee until she was rehabing her L knee replacement. Her surgery was performed on 11/05/[address] Peña at [facility]. Pt also reports history of R sciatic pain that was very aggravated before her surgery. She has not felt it recently , but is cautious about her movements because of it. Treatment Goals Patient/Caregiver Goals Pt would like to decrease pain , be able to return to riding her bike, walking her dog and swimming. 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 Current Functional Impairments (Reported) Functional Limitations- ADL's Difficulty standing up from low seat, rolling in bed Functional Limitations- Recreation/ unable to walk long distances Hobbies with her dog, bike or swim PT-OP-C Subjective Start: 11/11/17 12:08 Freq: Status: Active Protocol: Document 01/13/18 08:15 AMB (Rec: 01/13/18 08:23 AMB [id number]) OP-PT Subjective Patient Comments Patient Comments Pt's knee is feeling ok, but sciatica is still a problem on and off. PT-OP-G Mobility & Gait Start: 11/11/17 12:08 Freq: Status: Active Protocol: Document 01/06/18 12:19 EA (Rec: 01/06/18 13:02 EA [id number]) OP Gait Assessment Gait Gait Assistance Required: Independent Distance (Feet) 30 Able to Maintain Weight Bearing Status Yes During Gait Assistive Devices Assistive Device Front Wheeled Walker Gait Deviations General Gait Pattern Antalgic Decreased Stride Length Narrow Based Gait Factors Limiting Gait Function Factors Limiting Gait Function Limited Range of Motion Pain PT-OP-J Posture/Palpation/Skin Start: 11/11/17 12:08 Freq: Status: Active Protocol: Document 01/06/18 12:19 EA (Rec: 01/06/18 13:02 EA [id number]) Palpation Assessment Location One Palpation Location R ITB Palpation Findings Tenderness Palpation Details Grade 3/4 PT-OP-K Range of Motion Start: 11/11/17 12:08 Freq: Status: Active Protocol: Document 01/06/18 12:19 EA (Rec: 01/06/18 13:02 EA [id number]) Knee Goniometric Range of Motion Knee Measured in Degrees Right Flexion Active (degrees) 125 Flexion Passive (degrees) 130 Extension Active (degrees) 0 Left Knee ROM WFL Yes Patient Position Supine Flexion Active (degrees) 130 Flexion Passive (degrees) 132 Extension Active (degrees) 0 Extension Passive (degrees) 0 Knee ROM Limitations Knee ROM Limitations Soft Tissue Tightness Pain Swelling PT-OP-Q Treatments Start: 11/11/17 12:08 Freq: Status: Active Protocol: Document 01/13/18 08:15 AMB (Rec: 01/13/18 08:26 AMB [id number]) Cardio Equipment Recumbent Elliptical (Biodex) Duration (Minutes) 5 Resistance 4 Gym Equipment Shuttle Recovery Unilateral Squats Resistance 37 Shuttle Recovery Platform Stable Bilateral Squats Resistance 100# Shuttle Recovery Platform Stable Therapeutic Exercises Supine Exercises 3 Supine Exercise Name SLR with quad set Side bilateral Reps/Minutes 10 Standing Exercises 9 Standing Exercise Name 4 steps down and up backward leading left Reps/Minutes x 10 reps x 2 sets heel cord stretch Standing Exercise Name heel cord stretch Side bilateral Equipment Used VICKIE PT-OP-R Modalities Start: 11/11/17 12:08 Freq: Status: Active Protocol: Document 01/13/18 08:15 AMB (Rec: 01/13/18 08:26 AMB [id number]) Electric Stimulation Electric Stimulation Interferential Current (IFC) Body Location R knee Duration (Minutes) 15 Intensity 26 Patient Position Hooklying Combined With Heat/Cold Cold Pack Comments bolster PT-OP-T Assessment and Plan Start: 11/11/17 12:08 Freq: Status: Active Protocol: Document 01/13/18 08:15 AMB (Rec: 01/13/18 08:47 AMB [id number]) Physical Therapy Assessment Assessment Summary Assessment Pt tolerated exercise well, step up and single leg squat on shuttle increased pain slightly. Physical Therapy Plan Next Visit Focus/Plan Next Note Type Treatment Note Next Visit Plan Continue TKA rehab per POC.
--- NOTE | 2018-01-15 16:10 | PT.OTN ---
Current Diagnoses Presence of right artificial knee joint (01/15/18) Physical Therapy Treatment Note PT-OP-A Visit Information Start: 11/11/17 12:08 Freq: Status: Active Protocol: Document 01/15/18 08:30 AMB (Rec: 01/15/18 08:36 AMB [id number]) Out-Patient Physical Therapy Visit Information Visit Information Visit Type Treatment Note Visit Start Time 08:30 Visit Stop Time 09:10 Total Visit Minutes 40 Visit Number 20 Number of BRICK SIDING APPLICATOR Visits 0 PT-OP-B Current Condition Start: 11/11/17 12:08 Freq: Status: Active Protocol: Document 11/11/17 12:05 MDD (Rec: 11/11/17 12:35 MDD [id number]) Current Condition History of Current Condition Onset Date 11/05/17 Current Complaints R knee pain s/p R TKA History of Current Condition Pt had left knee replaced 1.5 years ago. Reports she had an arthroscopic surgery on the R knee in and didn't have any trouble with her R knee until she was rehabing her L knee replacement. Her surgery was performed on 11/05/[address] Peña at [facility]. Pt also reports history of R sciatic pain that was very aggravated before her surgery. She has not felt it recently , but is cautious about her movements because of it. Treatment Goals Patient/Caregiver Goals Pt would like to decrease pain , be able to return to riding her bike, walking her dog and swimming. 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 Current Functional Impairments (Reported) Functional Limitations- ADL's Difficulty standing up from low seat, rolling in bed Functional Limitations- Recreation/ unable to walk long distances Hobbies with her dog, bike or swim PT-OP-C Subjective Start: 11/11/17 12:08 Freq: Status: Active Protocol: Document 01/15/18 08:30 AMB (Rec: 01/15/18 08:36 AMB [id number]) OP-PT Subjective Patient Comments Patient Comments Pt's knee is doing well, was a bit sore after last visit. PT-OP-G Mobility & Gait Start: 11/11/17 12:08 Freq: Status: Active Protocol: Document 01/06/18 12:19 EA (Rec: 01/06/18 13:02 EA [id number]) OP Gait Assessment Gait Gait Assistance Required: Independent Distance (Feet) 30 Able to Maintain Weight Bearing Status Yes During Gait Assistive Devices Assistive Device Front Wheeled Walker Gait Deviations General Gait Pattern Antalgic Decreased Stride Length Narrow Based Gait Factors Limiting Gait Function Factors Limiting Gait Function Limited Range of Motion Pain PT-OP-J Posture/Palpation/Skin Start: 11/11/17 12:08 Freq: Status: Active Protocol: Document 01/06/18 12:19 EA (Rec: 01/06/18 13:02 EA [id number]) Palpation Assessment Location One Palpation Location R ITB Palpation Findings Tenderness Palpation Details Grade 3/4 PT-OP-K Range of Motion Start: 11/11/17 12:08 Freq: Status: Active Protocol: Document 01/06/18 12:19 EA (Rec: 01/06/18 13:02 EA [id number]) Knee Goniometric Range of Motion Knee Measured in Degrees Right Flexion Active (degrees) 125 Flexion Passive (degrees) 130 Extension Active (degrees) 0 Left Knee ROM WFL Yes Patient Position Supine Flexion Active (degrees) 130 Flexion Passive (degrees) 132 Extension Active (degrees) 0 Extension Passive (degrees) 0 Knee ROM Limitations Knee ROM Limitations Soft Tissue Tightness Pain Swelling PT-OP-Q Treatments Start: 11/11/17 12:08 Freq: Status: Active Protocol: Document 01/15/18 08:30 AMB (Rec: 01/15/18 08:44 AMB [id number]) Cardio Equipment Recumbent Bicycle Duration (Minutes) 6 Resistance 5 Seat Position 3 Therapeutic Exercises Sidelying Exercises 1 Sidelying Exercise Name IT band stretch Reps/Minutes 30x2 Standing Exercises 9 Standing Exercise Name 4 steps down and up backward leading left Reps/Minutes x 10 reps x 2 sets 1 Standing Exercise Name Rails side stepos squat w/ heel raises Resistance YTB Reps/Minutes x 2 lines PT-OP-R Modalities Start: 11/11/17 12:08 Freq: Status: Active Protocol: Document 01/15/18 08:30 AMB (Rec: 01/15/18 16:09 AMB [email or web address]) Electric Stimulation Electric Stimulation Interferential Current (IFC) Body Location R knee Duration (Minutes) 15 Intensity 26 Patient Position Hooklying Combined With Heat/Cold Cold Pack Comments bolster PT-OP-T Assessment and Plan Start: 11/11/17 12:08 Freq: Status: Active Protocol: Document 01/15/18 08:30 AMB (Rec: 01/15/18 16:09 AMB [email or web address]) Physical Therapy Assessment Assessment Summary Assessment Pt with lateral knee pain today, but otherwise doing well. Physical Therapy Plan Next Visit Focus/Plan Next Note Type Treatment Note Next Visit Plan Continue TKA rehab per POC.
--- NOTE | 2018-01-22 15:59 | PT.OTN ---
Current Diagnoses Presence of right artificial knee joint (01/22/18) Physical Therapy Treatment Note PT-OP-A Visit Information Start: 11/11/17 12:08 Freq: Status: Active Protocol: Document 01/22/18 15:30 DCW (Rec: 01/22/18 15:59 DCW [id number]) Out-Patient Physical Therapy Visit Information Visit Information Visit Type Progress Note Visit Note Pt arrived 15 minutes late Visit Start Time 15:30 Visit Stop Time 16:10 Total Visit Minutes 40 Visit Number 20 Number of INSULATION BLOWER Visits 0 PT-OP-B Current Condition Start: 11/11/17 12:08 Freq: Status: Active Protocol: Document 11/11/17 12:05 MDD (Rec: 11/11/17 12:35 MDD [id number]) Current Condition History of Current Condition Onset Date 11/05/17 Current Complaints R knee pain s/p R TKA History of Current Condition Pt had left knee replaced 1.5 years ago. Reports she had an arthroscopic surgery on the R knee in and didn't have any trouble with her R knee until she was rehabing her L knee replacement. Her surgery was performed on 11/05/[address] Peña at [facility]. Pt also reports history of R sciatic pain that was very aggravated before her surgery. She has not felt it recently , but is cautious about her movements because of it. Treatment Goals Patient/Caregiver Goals Pt would like to decrease pain , be able to return to riding her bike, walking her dog and swimming. 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 Current Functional Impairments (Reported) Functional Limitations- ADL's Difficulty standing up from low seat, rolling in bed Functional Limitations- Recreation/ unable to walk long distances Hobbies with her dog, bike or swim PT-OP-C Subjective Start: 11/11/17 12:08 Freq: Status: Active Protocol: Document 01/22/18 15:30 DCW (Rec: 01/22/18 15:59 DCW [id number]) OP-PT Subjective Patient Comments Patient Comments Pt is doing well today, but her knee is still a little sore. PT-OP-G Mobility & Gait Start: 11/11/17 12:08 Freq: Status: Active Protocol: Document 01/06/18 12:19 EA (Rec: 01/06/18 13:02 EA [id number]) OP Gait Assessment Gait Gait Assistance Required: Independent Distance (Feet) 30 Able to Maintain Weight Bearing Status Yes During Gait Assistive Devices Assistive Device Front Wheeled Walker Gait Deviations General Gait Pattern Antalgic Decreased Stride Length Narrow Based Gait Factors Limiting Gait Function Factors Limiting Gait Function Limited Range of Motion Pain PT-OP-J Posture/Palpation/Skin Start: 11/11/17 12:08 Freq: Status: Active Protocol: Document 01/06/18 12:19 EA (Rec: 01/06/18 13:02 EA [id number]) Palpation Assessment Location One Palpation Location R ITB Palpation Findings Tenderness Palpation Details Grade 3/4 PT-OP-K Range of Motion Start: 11/11/17 12:08 Freq: Status: Active Protocol: Document 01/06/18 12:19 EA (Rec: 01/06/18 13:02 EA [id number]) Knee Goniometric Range of Motion Knee Measured in Degrees Right Flexion Active (degrees) 125 Flexion Passive (degrees) 130 Extension Active (degrees) 0 Left Knee ROM WFL Yes Patient Position Supine Flexion Active (degrees) 130 Flexion Passive (degrees) 132 Extension Active (degrees) 0 Extension Passive (degrees) 0 Knee ROM Limitations Knee ROM Limitations Soft Tissue Tightness Pain Swelling PT-OP-Q Treatments Start: 11/11/17 12:08 Freq: Status: Active Protocol: Document 01/22/18 15:30 DCW (Rec: 01/22/18 15:59 DCW [id number]) Cardio Equipment Recumbent Bicycle Duration (Minutes) 6 Resistance 5 Seat Position 3 Therapeutic Exercises Standing Exercises 9 Standing Exercise Name 4 steps down and up backward leading left Reps/Minutes x 10 reps x 2 sets 7 Standing Exercise Name BOSU step up and down w/ hand support Side bilateral Equipment Used BOSU (Blue) Reps/Minutes x 30 secs x 3 reps heel cord stretch Standing Exercise Name heel cord stretch Side bilateral Equipment Used VICKIE 2 Standing Exercise Name Flexion Step stretch Side right 1 Standing Exercise Name Rails side steps squat w/ heel raises Resistance YTB Reps/Minutes x 2 lines PT-OP-R Modalities Start: 11/11/17 12:08 Freq: Status: Active Protocol: Document 01/22/18 15:30 DCW (Rec: 01/22/18 15:59 DCW [id number]) Electric Stimulation Electric Stimulation Interferential Current (IFC) Body Location R knee Duration (Minutes) 15 Intensity 38 Patient Position Hooklying Combined With Heat/Cold Cold Pack Comments bolster PT-OP-T Assessment and Plan Start: 11/11/17 12:08 Freq: Status: Active Protocol: Document 01/22/18 15:30 DCW (Rec: 01/22/18 15:59 DCW [id number]) Physical Therapy Assessment Impairments Impairments Activity Tolerance Edema Functional Mobility Gait Integument Pain ROM Sensation Soft Tissue Mobility Strength Goals 3 Impairment Activity tolerance Short Term Goal (STG) Pt to tolerate ambulating up to 1/2 mile with her dog in 4- 6 weeks. STG Duration Met Wire Preparation Worker Goal (LTG) Pt to tolerate ambulating up to 2 miles with her dog. LTG Duration 4 wks 2 Impairment Gait Short Term Goal (STG) Progress to gait on level ground with single point cane in 3-4 weeks. STG Duration Met Usp Goal (LTG) Progress to independent with no AD on level ground in 8 weeks. LTG Duration Met One Impairment ROM Short Term Goal (STG) Improve R knee ROM to 0-90 degrees in 2-3 weeks. STG Duration Met Wire Preparation Worker Goal (LTG) R knee ROM 0-130 activein 6-8 weeks. LTG Duration 4 wk Assessment Summary Assessment Pt continuing to struggle with regaining full ROM, especially in flexion. Physical Therapy Plan Frequency and Duration Frequency of Treatment 2x/Week Duration of Treatment 12 weeks Plan of Care Start Date 11/11/17 Plan of Care End Date 02/03/18 Therapeutic Interventions Therapeutic Interventions Aquatic Therapy Gait Training Home Exercise Program Joint Mobilizations Manual Therapy Neuromuscular Re-education Self-Care/Home Management Soft Tissue Mobilization Therapeutic Activities Therapeutic Exercises Modalities Cold Pack/Ice Massage Electric Stimulation Next Visit Focus/Plan Next Note Type Treatment Note Next Visit Plan Continue TKA rehab per POC.
--- NOTE | 2018-01-28 11:25 | PT.OTN ---
Current Diagnoses Presence of right artificial knee joint (01/28/18) Physical Therapy Treatment Note PT-OP-A Visit Information Start: 11/11/17 12:08 Freq: Status: Active Protocol: Document 01/28/18 11:11 SA (Rec: 01/28/18 11:25 SA [email or web address]) Out-Patient Physical Therapy Visit Information Visit Information Visit Type Treatment Note Visit Start Time 10:30 Visit Stop Time 11:18 Total Visit Minutes 48 Visit Number 21 Number of INFORMATION SECURITY RISK ANALYST Visits 1 PT-OP-B Current Condition Start: 11/11/17 12:08 Freq: Status: Active Protocol: Document 11/11/17 12:05 MDD (Rec: 11/11/17 12:35 MDD [id number]) Current Condition History of Current Condition Onset Date 11/05/17 Current Complaints R knee pain s/p R TKA History of Current Condition Pt had left knee replaced 1.5 years ago. Reports she had an arthroscopic surgery on the R knee in and didn't have any trouble with her R knee until she was rehabing her L knee replacement. Her surgery was performed on 11/05/[address] Peña at [facility]. Pt also reports history of R sciatic pain that was very aggravated before her surgery. She has not felt it recently , but is cautious about her movements because of it. Treatment Goals Patient/Caregiver Goals Pt would like to decrease pain , be able to return to riding her bike, walking her dog and swimming. 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 Current Functional Impairments (Reported) Functional Limitations- ADL's Difficulty standing up from low seat, rolling in bed Functional Limitations- Recreation/ unable to walk long distances Hobbies with her dog, bike or swim PT-OP-C Subjective Start: 11/11/17 12:08 Freq: Status: Active Protocol: Document 01/28/18 11:11 SA (Rec: 01/28/18 11:25 SA [email or web address]) OP-PT Subjective Patient Comments Patient Comments Still walking daily with dog, minimal knee pain but uneven surfaces still challenging. PT-OP-G Mobility & Gait Start: 11/11/17 12:08 Freq: Status: Active Protocol: Document 01/06/18 12:19 EA (Rec: 01/06/18 13:02 EA [id number]) OP Gait Assessment Gait Gait Assistance Required: Independent Distance (Feet) 30 Able to Maintain Weight Bearing Status Yes During Gait Assistive Devices Assistive Device Front Wheeled Walker Gait Deviations General Gait Pattern Antalgic Decreased Stride Length Narrow Based Gait Factors Limiting Gait Function Factors Limiting Gait Function Limited Range of Motion Pain PT-OP-J Posture/Palpation/Skin Start: 11/11/17 12:08 Freq: Status: Active Protocol: Document 01/06/18 12:19 EA (Rec: 01/06/18 13:02 EA [id number]) Palpation Assessment Location One Palpation Location R ITB Palpation Findings Tenderness Palpation Details Grade 3/4 PT-OP-K Range of Motion Start: 11/11/17 12:08 Freq: Status: Active Protocol: Document 01/06/18 12:19 EA (Rec: 01/06/18 13:02 EA [id number]) Knee Goniometric Range of Motion Knee Measured in Degrees Right Flexion Active (degrees) 125 Flexion Passive (degrees) 130 Extension Active (degrees) 0 Left Knee ROM WFL Yes Patient Position Supine Flexion Active (degrees) 130 Flexion Passive (degrees) 132 Extension Active (degrees) 0 Extension Passive (degrees) 0 Knee ROM Limitations Knee ROM Limitations Soft Tissue Tightness Pain Swelling PT-OP-Q Treatments Start: 11/11/17 12:08 Freq: Status: Active Protocol: Document 01/28/18 11:11 SA (Rec: 01/28/18 11:25 SA [email or web address]) Gym Equipment Shuttle Recovery Unilateral Squats Resistance 37 Shuttle Recovery Platform Stable Reps/Time 2 x 15 Bilateral Squats Resistance 100# Shuttle Recovery Platform Stable Reps/Time 2 x 15 Therapeutic Exercises Sidelying Exercises 1 Sidelying Exercise Name IT band stretch Reps/Minutes 30x2 Standing Exercises 9 Standing Exercise Name 4 steps down and up backward leading left Reps/Minutes x 10 reps x 2 sets 7 Standing Exercise Name BOSU step up and down w/ hand support Side bilateral Equipment Used BOSU (Blue) Reps/Minutes x 30 secs x 3 reps heel cord stretch Standing Exercise Name heel cord stretch Side bilateral Equipment Used VICKIE 2 Standing Exercise Name Flexion Step stretch Side right 1 Standing Exercise Name Rails side steps squat w/ heel raises Resistance YTB Reps/Minutes 4 lines PT-OP-R Modalities Start: 11/11/17 12:08 Freq: Status: Active Protocol: Document 01/28/18 11:11 SA (Rec: 01/28/18 11:25 SA [email or web address]) Hot Pack/Cold Pack Treatment Cold Pack Location R knee Patient Position Supine Treatment Duration (minutes) 10 PT-OP-T Assessment and Plan Start: 11/11/17 12:08 Freq: Status: Active Protocol: Document 01/28/18 11:11 SA (Rec: 01/28/18 11:25 SA [email or web address]) Physical Therapy Assessment Assessment Summary Assessment Pt to continue with knee flexion stretching, daily walks and strengthening program at home. Using ice and Gabapentin for pain management at home. Physical Therapy Plan Next Visit Focus/Plan Next Note Type Treatment Note Next Visit Plan Continue with strengthening protocol, progress uneven surface challenges.
--- NOTE | 2018-01-31 10:31 | PT.OTN ---
Current Diagnoses Presence of right artificial knee joint (01/31/18) Physical Therapy Treatment Note PT-OP-A Visit Information Start: 11/11/17 12:08 Freq: Status: Active Protocol: Document 01/31/18 09:45 DCW (Rec: 01/31/18 10:31 DCW [id number]) Out-Patient Physical Therapy Visit Information Visit Information Visit Type Progress Note Visit Start Time 09:45 Visit Stop Time 10:40 Total Visit Minutes 55 Visit Number 22 Number of LAMP ASSEMBLER Visits 1 Evaluation Information Evaluation Date 11/11/17 PT-OP-B Current Condition Start: 11/11/17 12:08 Freq: Status: Active Protocol: Document 11/11/17 12:05 MDD (Rec: 11/11/17 12:35 MDD [id number]) Current Condition History of Current Condition Onset Date 11/05/17 Current Complaints R knee pain s/p R TKA History of Current Condition Pt had left knee replaced 1.5 years ago. Reports she had an arthroscopic surgery on the R knee in and didn't have any trouble with her R knee until she was rehabing her L knee replacement. Her surgery was performed on 11/05/[address] Peña at [facility]. Pt also reports history of R sciatic pain that was very aggravated before her surgery. She has not felt it recently , but is cautious about her movements because of it. Treatment Goals Patient/Caregiver Goals Pt would like to decrease pain , be able to return to riding her bike, walking her dog and swimming. 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 Current Functional Impairments (Reported) Functional Limitations- ADL's Difficulty standing up from low seat, rolling in bed Functional Limitations- Recreation/ unable to walk long distances Hobbies with her dog, bike or swim PT-OP-C Subjective Start: 11/11/17 12:08 Freq: Status: Active Protocol: Document 01/31/18 09:45 DCW (Rec: 01/31/18 10:31 DCW [id number]) OP-PT Subjective Patient Comments Patient Comments Pt notes that her biggest ongoing issue is general pain when trying to sleep at night PT-OP-G Mobility & Gait Start: 11/11/17 12:08 Freq: Status: Active Protocol: Document 01/31/18 09:45 DCW (Rec: 01/31/18 09:52 DCW [id number]) OP Gait Assessment Gait Gait Assistance Required: Independent Distance (Feet) 300 Able to Maintain Weight Bearing Status Yes During Gait Assistive Devices Assistive Device None Gait Deviations General Gait Pattern Antalgic PT-OP-J Posture/Palpation/Skin Start: 11/11/17 12:08 Freq: Status: Active Protocol: Document 01/31/18 09:45 DCW (Rec: 01/31/18 09:52 DCW [id number]) Palpation Assessment Location One Palpation Location R ITB Palpation Findings Tenderness Palpation Details Grade 2/4 - Pain with wincing PT-OP-K Range of Motion Start: 11/11/17 12:08 Freq: Status: Active Protocol: Document 01/31/18 09:45 DCW (Rec: 01/31/18 09:52 DCW [id number]) Knee Goniometric Range of Motion Knee Measured in Degrees Right Patient Position Supine Flexion Active (degrees) 123 Flexion Passive (degrees) 126 Extension Active (degrees) 0 Knee ROM Limitations Knee ROM Limitations Pain PT-OP-Q Treatments Start: 11/11/17 12:08 Freq: Status: Active Protocol: Document 01/31/18 09:45 DCW (Rec: 01/31/18 10:31 DCW [id number]) Therapeutic Exercises Sidelying Exercises 1 Sidelying Exercise Name IT band stretch Reps/Minutes 30x2 Standing Exercises 9 Standing Exercise Name 4 steps down and up backward leading left Reps/Minutes x 10 reps x 2 sets 7 Standing Exercise Name BOSU step up and down w/ hand support Side bilateral Equipment Used BOSU (Blue) Reps/Minutes x 30 secs x 3 reps heel cord stretch Standing Exercise Name heel cord stretch Side bilateral Equipment Used VICKIE 2 Standing Exercise Name Flexion Step stretch Side right 1 Standing Exercise Name Rails side steps squat w/ heel raises Resistance YTB Reps/Minutes 4 lines Manual Therapy Treatment Joint Mobilizations 2 Joint tibiofemoral joint Direction inferior femur on tibia Grade III Body Position Supine PT-OP-R Modalities Start: 11/11/17 12:08 Freq: Status: Active Protocol: Document 01/31/18 09:45 DCW (Rec: 01/31/18 10:31 DCW [id number]) Electric Stimulation Electric Stimulation Interferential Current (IFC) Body Location R knee Duration (Minutes) 15 Intensity 47 Patient Position Hooklying Combined With Heat/Cold Cold Pack Comments georgister PT-OP-T Assessment and Plan Start: 11/11/17 12:08 Freq: Status: Active Protocol: Document 01/31/18 09:45 DCW (Rec: 01/31/18 10:31 DCW [id number]) Physical Therapy Assessment Impairments Impairments Activity Tolerance Edema Functional Mobility Gait Integument Pain ROM Sensation Soft Tissue Mobility Strength Goals 3 Impairment Activity tolerance Short Term Goal (STG) Pt to tolerate ambulating up to 1/2 mile with her dog in 4- 6 weeks. STG Duration Met Sprinkler Truck Driver Goal (LTG) Pt to tolerate ambulating up to 2 miles with her dog. LTG Duration 4 wks 2 Impairment Gait Short Term Goal (STG) Progress to gait on level ground with single point cane in 3-4 weeks. STG Duration Met Sprinkler Truck Driver Goal (LTG) Progress to independent with no AD on level ground in 8 weeks. LTG Duration Met One Impairment ROM Short Term Goal (STG) Improve R knee ROM to 0-90 degrees in 2-3 weeks. STG Duration Met Sprinkler Truck Driver Goal (LTG) R knee ROM 0-130 activein 6-8 weeks. LTG Duration 4 wk Progress Towards Goals Progress Towards Goals Progressing Toward Goals Assessment Summary Assessment Pt flexion much improved today , nearing completion of goals. Pt has five more visits scheduled, and would likely benefit from keeping those, due to ongoing difficulty with pain control, however, pt is likely nearing discharge. Physical Therapy Plan Frequency and Duration Frequency of Treatment 2x/Week Duration of Treatment 6 weeks Plan of Care Start Date 01/31/18 Plan of Care End Date 03/14/18 Therapeutic Interventions Therapeutic Interventions Aquatic Therapy Gait Training Home Exercise Program Joint Mobilizations Manual Therapy Neuromuscular Re-education Self-Care/Home Management Soft Tissue Mobilization Therapeutic Activities Therapeutic Exercises Modalities Cold Pack/Ice Massage Electric Stimulation Next Visit Focus/Plan Next Note Type Treatment Note Next Visit Plan Continue with strengthening protocol, progress uneven surface challenges.
--- NOTE | 2018-01-31 10:32 | PT.OPPOC ---
Current Diagnoses Presence of right artificial knee joint (01/31/18) Provider Visit Care Team Role Provider Type Dandre Peña DO Attending Provider Non-Staff Specialty: Orthopedics Address: [address] [place] [address], [place], [address] Email: Plan Of Care PT-OP-T Assessment and Plan Start: 11/11/17 12:08 Freq: Status: Active Protocol: Document 01/31/18 09:45 DCW (Rec: 01/31/18 10:31 DCW [id number]) Physical Therapy Assessment Impairments Impairments Activity Tolerance Edema Functional Mobility Gait Integument Pain ROM Sensation Soft Tissue Mobility Strength Goals 3 Impairment Activity tolerance Short Term Goal (STG) Pt to tolerate ambulating up to 1/2 mile with her dog in 4- 6 weeks. STG Duration Met Race Car Mechanic Goal (LTG) Pt to tolerate ambulating up to 2 miles with her dog. LTG Duration 4 wks 2 Impairment Gait Short Term Goal (STG) Progress to gait on level ground with single point cane in 3-4 weeks. STG Duration Met Race Car Mechanic Goal (LTG) Progress to independent with no AD on level ground in 8 weeks. LTG Duration Met One Impairment ROM Short Term Goal (STG) Improve R knee ROM to 0-90 degrees in 2-3 weeks. STG Duration Met Race Car Mechanic Goal (LTG) R knee ROM 0-130 activein 6-8 weeks. LTG Duration 4 wk Progress Towards Goals Progress Towards Goals Progressing Toward Goals Assessment Summary Assessment Pt flexion much improved today , nearing completion of goals. Pt has five more visits scheduled, and would likely benefit from keeping those, due to ongoing difficulty with pain control, however, pt is likely nearing discharge. Physical Therapy Plan Frequency and Duration Frequency of Treatment 2x/Week Duration of Treatment 6 weeks Plan of Care Start Date 01/31/18 Plan of Care End Date 03/14/18 Therapeutic Interventions Therapeutic Interventions Aquatic Therapy Gait Training Home Exercise Program Joint Mobilizations Manual Therapy Neuromuscular Re-education Self-Care/Home Management Soft Tissue Mobilization Therapeutic Activities Therapeutic Exercises Modalities Cold Pack/Ice Massage Electric Stimulation Next Visit Focus/Plan Next Note Type Treatment Note Next Visit Plan Continue with strengthening protocol, progress uneven surface challenges. Plan of Care Dates Plan of Care Start Date 01/31/18 Plan of Care End Date 12/28/18 Please Sign and Return: I have reviewed this Plan of Care and certify that the skilled therapy services above are required to meet the patient?s needs. Physician Signature Date Printed Name and Credentials Clinical Instructor Signature Printed Name and Credentials
--- NOTE | 2018-02-04 09:44 | PT.OTN ---
Current Diagnoses Presence of right artificial knee joint (02/04/18) Physical Therapy Treatment Note PT-OP-A Visit Information Start: 11/11/17 12:08 Freq: Status: Active Protocol: Document 02/04/18 09:00 GGD (Rec: 02/04/18 09:44 GGD [email or web address]) Out-Patient Physical Therapy Visit Information Visit Information Visit Type Treatment Note Visit Start Time 09:00 Visit Stop Time 09:55 Total Visit Minutes 55 Visit Number 23 Number of GAS PUMP ATTENDANT Visits 1 Evaluation Information Evaluation Date 11/11/17 PT-OP-B Current Condition Start: 11/11/17 12:08 Freq: Status: Active Protocol: Document 11/11/17 12:05 MDD (Rec: 11/11/17 12:35 MDD [id number]) Current Condition History of Current Condition Onset Date 11/05/17 Current Complaints R knee pain s/p R TKA History of Current Condition Pt had left knee replaced 1.5 years ago. Reports she had an arthroscopic surgery on the R knee in and didn't have any trouble with her R knee until she was rehabing her L knee replacement. Her surgery was performed on 11/05/[address] Peña at [facility]. Pt also reports history of R sciatic pain that was very aggravated before her surgery. She has not felt it recently , but is cautious about her movements because of it. Treatment Goals Patient/Caregiver Goals Pt would like to decrease pain , be able to return to riding her bike, walking her dog and swimming. 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 Current Functional Impairments (Reported) Functional Limitations- ADL's Difficulty standing up from low seat, rolling in bed Functional Limitations- Recreation/ unable to walk long distances Hobbies with her dog, bike or swim PT-OP-C Subjective Start: 11/11/17 12:08 Freq: Status: Active Protocol: Document 02/04/18 09:00 GGD (Rec: 02/04/18 09:44 GGD [email or web address]) OP-PT Subjective Patient Comments Patient Comments Pt states she feels weak with getting up from a low chair. She states that she been having some ankle pain. PT-OP-G Mobility & Gait Start: 11/11/17 12:08 Freq: Status: Active Protocol: Document 01/31/18 09:45 DCW (Rec: 01/31/18 09:52 DCW [id number]) OP Gait Assessment Gait Gait Assistance Required: Independent Distance (Feet) 300 Able to Maintain Weight Bearing Status Yes During Gait Assistive Devices Assistive Device None Gait Deviations General Gait Pattern Antalgic PT-OP-J Posture/Palpation/Skin Start: 11/11/17 12:08 Freq: Status: Active Protocol: Document 01/31/18 09:45 DCW (Rec: 01/31/18 09:52 DCW [id number]) Palpation Assessment Location One Palpation Location R ITB Palpation Findings Tenderness Palpation Details Grade 2/4 - Pain with wincing PT-OP-K Range of Motion Start: 11/11/17 12:08 Freq: Status: Active Protocol: Document 01/31/18 09:45 DCW (Rec: 01/31/18 09:52 DCW [id number]) Knee Goniometric Range of Motion Knee Measured in Degrees Right Patient Position Supine Flexion Active (degrees) 123 Flexion Passive (degrees) 126 Extension Active (degrees) 0 Knee ROM Limitations Knee ROM Limitations Pain PT-OP-Q Treatments Start: 11/11/17 12:08 Freq: Status: Active Protocol: Document 02/04/18 09:00 GGD (Rec: 02/04/18 09:44 GGD [email or web address]) Cardio Equipment Recumbent Bicycle Duration (Minutes) 6 Resistance 5 Seat Position 3 Therapeutic Exercises Sidelying Exercises 1 Sidelying Exercise Name IT band stretch Reps/Minutes 30x2 Standing Exercises 9 Standing Exercise Name 4 steps down and up backward leading left Reps/Minutes x 10 reps x 2 sets 7 Standing Exercise Name BOSU step up and down w/ hand support Side bilateral Equipment Used BOSU (Blue) Reps/Minutes x 30 secs x 3 reps heel cord stretch Standing Exercise Name heel cord stretch Side bilateral Equipment Used VICKIE 2 Standing Exercise Name Flexion Step stretch Side right 1 Standing Exercise Name Rails side steps squat w/ heel raises Resistance YTB Reps/Minutes 4 lines Manual Therapy Treatment Joint Mobilizations 2 Joint tibiofemoral joint Direction inferior femur on tibia Grade III Body Position Supine PT-OP-R Modalities Start: 11/11/17 12:08 Freq: Status: Active Protocol: Document 02/04/18 09:00 GGD (Rec: 02/04/18 09:44 GGD [email or web address]) Electric Stimulation Electric Stimulation Interferential Current (IFC) Body Location R knee Duration (Minutes) 15 Intensity 47 Patient Position Hooklying Combined With Heat/Cold Cold Pack Comments bolster PT-OP-T Assessment and Plan Start: 11/11/17 12:08 Freq: Status: Active Protocol: Document 02/04/18 09:00 GGD (Rec: 02/04/18 09:44 GGD [email or web address]) Physical Therapy Assessment Assessment Summary Assessment Pt needing cues for exercise technique. She had tenderness around tibfib. She is improving with ROM and activity tolerance. Physical Therapy Plan Frequency and Duration Frequency of Treatment 2x/Week Duration of Treatment 6 weeks Plan of Care Start Date 01/31/18 Plan of Care End Date 03/14/18 Next Visit Focus/Plan Next Note Type Treatment Note Next Visit Plan Continue with strengthening protocol, progress uneven surface as ankle tolerates.
--- NOTE | 2018-02-10 12:38 | PT.OTN ---
Current Diagnoses Presence of right artificial knee joint (02/10/18) Physical Therapy Treatment Note PT-OP-A Visit Information Start: 11/11/17 12:08 Freq: Status: Active Protocol: Document 02/10/18 12:00 DCW (Rec: 02/10/18 12:38 DCW [id number]) Out-Patient Physical Therapy Visit Information Visit Information Visit Type Treatment Note Visit Start Time 12:00 Visit Stop Time 12:45 Total Visit Minutes 55 Visit Number 24 Number of PRESIDENT ERGONOMIC CONSULTING Visits 0 Evaluation Information Evaluation Date 11/11/17 PT-OP-B Current Condition Start: 11/11/17 12:08 Freq: Status: Active Protocol: Document 11/11/17 12:05 MDD (Rec: 11/11/17 12:35 MDD [id number]) Current Condition History of Current Condition Onset Date 11/05/17 Current Complaints R knee pain s/p R TKA History of Current Condition Pt had left knee replaced 1.5 years ago. Reports she had an arthroscopic surgery on the R knee in and didn't have any trouble with her R knee until she was rehabing her L knee replacement. Her surgery was performed on 11/05/[address] Peña at [facility]. Pt also reports history of R sciatic pain that was very aggravated before her surgery. She has not felt it recently , but is cautious about her movements because of it. Treatment Goals Patient/Caregiver Goals Pt would like to decrease pain , be able to return to riding her bike, walking her dog and swimming. 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 Current Functional Impairments (Reported) Functional Limitations- ADL's Difficulty standing up from low seat, rolling in bed Functional Limitations- Recreation/ unable to walk long distances Hobbies with her dog, bike or swim PT-OP-C Subjective Start: 11/11/17 12:08 Freq: Status: Active Protocol: Document 02/10/18 12:00 DCW (Rec: 02/10/18 12:38 DCW [id number]) OP-PT Subjective Patient Comments Patient Comments I'm actually pretty good today, not too bad. PT-OP-G Mobility & Gait Start: 11/11/17 12:08 Freq: Status: Active Protocol: Document 01/31/18 09:45 DCW (Rec: 01/31/18 09:52 DCW [id number]) OP Gait Assessment Gait Gait Assistance Required: Independent Distance (Feet) 300 Able to Maintain Weight Bearing Status Yes During Gait Assistive Devices Assistive Device None Gait Deviations General Gait Pattern Antalgic PT-OP-J Posture/Palpation/Skin Start: 11/11/17 12:08 Freq: Status: Active Protocol: Document 01/31/18 09:45 DCW (Rec: 01/31/18 09:52 DCW [id number]) Palpation Assessment Location One Palpation Location R ITB Palpation Findings Tenderness Palpation Details Grade 2/4 - Pain with wincing PT-OP-K Range of Motion Start: 11/11/17 12:08 Freq: Status: Active Protocol: Document 01/31/18 09:45 DCW (Rec: 01/31/18 09:52 DCW [id number]) Knee Goniometric Range of Motion Knee Measured in Degrees Right Patient Position Supine Flexion Active (degrees) 123 Flexion Passive (degrees) 126 Extension Active (degrees) 0 Knee ROM Limitations Knee ROM Limitations Pain PT-OP-Q Treatments Start: 11/11/17 12:08 Freq: Status: Active Protocol: Document 02/10/18 12:00 DCW (Rec: 02/10/18 12:38 DCW [id number]) Cardio Equipment Recumbent Bicycle Duration (Minutes) 6 Resistance 5 Seat Position 4 Gym Equipment Shuttle Recovery Unilateral Squats Resistance 37 Shuttle Recovery Platform Stable Reps/Time 2 x 15 Bilateral Squats Resistance 100# Shuttle Recovery Platform Stable Reps/Time 2 x 15 Therapeutic Exercises Standing Exercises 9 Standing Exercise Name 4 steps down and up backward leading left Reps/Minutes x 10 reps x 2 sets 7 Standing Exercise Name BOSU step up and down w/ hand support Side bilateral Equipment Used BOSU (Blue) Reps/Minutes x 30 secs x 3 reps heel cord stretch Standing Exercise Name heel cord stretch Side bilateral Equipment Used VICKIE 1 Standing Exercise Name Rails side steps squat w/ heel raises Resistance YTB Reps/Minutes 4 lines Manual Therapy Treatment Joint Mobilizations 2 Joint tibiofemoral joint Direction inferior femur on tibia Grade III Body Position Supine PT-OP-R Modalities Start: 11/11/17 12:08 Freq: Status: Active Protocol: Document 02/10/18 12:00 DCW (Rec: 02/10/18 12:38 DCW [id number]) Electric Stimulation Electric Stimulation Interferential Current (IFC) Body Location R knee Duration (Minutes) 15 Intensity 47 Patient Position Hooklying Combined With Heat/Cold Cold Pack Comments bolster PT-OP-T Assessment and Plan Start: 11/11/17 12:08 Freq: Status: Active Protocol: Document 02/10/18 12:00 DCW (Rec: 02/10/18 12:38 DCW [id number]) Physical Therapy Assessment Impairments Impairments Activity Tolerance Edema Functional Mobility Gait Integument Pain ROM Sensation Soft Tissue Mobility Strength Goals 3 Impairment Activity tolerance Short Term Goal (STG) Pt to tolerate ambulating up to 1/2 mile with her dog in 4- 6 weeks. STG Duration Met Slot Machine Mechanic Goal (LTG) Pt to tolerate ambulating up to 2 miles with her dog. LTG Duration 4 wks 2 Impairment Gait Short Term Goal (STG) Progress to gait on level ground with single point cane in 3-4 weeks. STG Duration Met [facility] Goal (LTG) Progress to independent with no AD on level ground in 8 weeks. LTG Duration Met One Impairment ROM Short Term Goal (STG) Improve R knee ROM to 0-90 degrees in 2-3 weeks. STG Duration Met [facility] Goal (LTG) R knee ROM 0-130 activein 6-8 weeks. LTG Duration 4 wk Progress Towards Goals Progress Towards Goals Progressing Toward Goals Assessment Summary Assessment Pt continues to progress with pain control and ROM, although today pt reported back pain from shopping over the weekend , which has limited her mobility. Physical Therapy Plan Frequency and Duration Frequency of Treatment 2x/Week Duration of Treatment 6 weeks Plan of Care Start Date 01/31/18 Plan of Care End Date 03/14/18 Therapeutic Interventions Therapeutic Interventions Aquatic Therapy Gait Training Home Exercise Program Joint Mobilizations Manual Therapy Neuromuscular Re-education Self-Care/Home Management Soft Tissue Mobilization Therapeutic Activities Therapeutic Exercises Modalities Cold Pack/Ice Massage Electric Stimulation Next Visit Focus/Plan Next Note Type Treatment Note Next Visit Plan Continue with strengthening protocol, progress uneven surface challenges.
--- NOTE | 2018-02-13 10:28 | PT.OTN ---
Current Diagnoses Presence of right artificial knee joint (02/13/18) Physical Therapy Treatment Note PT-OP-A Visit Information Start: 11/11/17 12:08 Freq: Status: Active Protocol: Document 02/13/18 09:45 DCW (Rec: 02/13/18 10:28 DCW [id number]) Out-Patient Physical Therapy Visit Information Visit Information Visit Type Treatment Note Visit Start Time 09:45 Visit Stop Time 10:40 Total Visit Minutes 55 Visit Number 25 Number of AUTOMOTIVE WELDER Visits 0 Evaluation Information Evaluation Date 11/11/17 PT-OP-B Current Condition Start: 11/11/17 12:08 Freq: Status: Active Protocol: Document 11/11/17 12:05 MDD (Rec: 11/11/17 12:35 MDD [id number]) Current Condition History of Current Condition Onset Date 11/05/17 Current Complaints R knee pain s/p R TKA History of Current Condition Pt had left knee replaced 1.5 years ago. Reports she had an arthroscopic surgery on the R knee in and didn't have any trouble with her R knee until she was rehabing her L knee replacement. Her surgery was performed on 11/05/[address] Peña at [facility]. Pt also reports history of R sciatic pain that was very aggravated before her surgery. She has not felt it recently , but is cautious about her movements because of it. Treatment Goals Patient/Caregiver Goals Pt would like to decrease pain , be able to return to riding her bike, walking her dog and swimming. 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 Current Functional Impairments (Reported) Functional Limitations- ADL's Difficulty standing up from low seat, rolling in bed Functional Limitations- Recreation/ unable to walk long distances Hobbies with her dog, bike or swim PT-OP-C Subjective Start: 11/11/17 12:08 Freq: Status: Active Protocol: Document 02/13/18 09:45 DCW (Rec: 02/13/18 10:28 DCW [id number]) OP-PT Subjective Patient Comments Patient Comments Pt reports she is fine, but not great, admits that she pulled her low back Tursday lifting shopping bags. PT-OP-G Mobility & Gait Start: 11/11/17 12:08 Freq: Status: Active Protocol: Document 01/31/18 09:45 DCW (Rec: 01/31/18 09:52 DCW [id number]) OP Gait Assessment Gait Gait Assistance Required: Independent Distance (Feet) 300 Able to Maintain Weight Bearing Status Yes During Gait Assistive Devices Assistive Device None Gait Deviations General Gait Pattern Antalgic PT-OP-J Posture/Palpation/Skin Start: 11/11/17 12:08 Freq: Status: Active Protocol: Document 01/31/18 09:45 DCW (Rec: 01/31/18 09:52 DCW [id number]) Palpation Assessment Location One Palpation Location R ITB Palpation Findings Tenderness Palpation Details Grade 2/4 - Pain with wincing PT-OP-K Range of Motion Start: 11/11/17 12:08 Freq: Status: Active Protocol: Document 01/31/18 09:45 DCW (Rec: 01/31/18 09:52 DCW [id number]) Knee Goniometric Range of Motion Knee Measured in Degrees Right Patient Position Supine Flexion Active (degrees) 123 Flexion Passive (degrees) 126 Extension Active (degrees) 0 Knee ROM Limitations Knee ROM Limitations Pain PT-OP-Q Treatments Start: 11/11/17 12:08 Freq: Status: Active Protocol: Document 02/13/18 09:45 DCW (Rec: 02/13/18 10:28 DCW [id number]) Cardio Equipment Recumbent Bicycle Duration (Minutes) 6 Resistance 5 Seat Position 4 Gym Equipment Shuttle Recovery Unilateral Squats Resistance 50# Shuttle Recovery Platform Stable Reps/Time 2 x 15 Bilateral Squats Resistance 100# Shuttle Recovery Platform Stable Reps/Time 2 x 15 Therapeutic Exercises Standing Exercises 7 Standing Exercise Name BOSU step up and down w/ hand support Side bilateral Equipment Used BOSU (Blue) Reps/Minutes x 30 secs x 3 reps heel cord stretch Standing Exercise Name heel cord stretch Side bilateral Equipment Used VICKIE 2 Standing Exercise Name Flexion Step stretch Side right 1 Standing Exercise Name Rails side steps squat w/ heel raises Resistance Green Equipment Used T-band Manual Therapy Treatment Soft Tissue Mobilization scar tissue Body Location R anterior knee Mobilization Type Other Intensity/Depth Moderate Body Position Supine Joint Mobilizations 2 Joint tibiofemoral joint Direction inferior femur on tibia Grade III Body Position Supine PT-OP-R Modalities Start: 11/11/17 12:08 Freq: Status: Active Protocol: Document 02/13/18 09:45 DCW (Rec: 02/13/18 10:28 DCW [id number]) Electric Stimulation Electric Stimulation Interferential Current (IFC) Body Location R knee Duration (Minutes) 15 Intensity 41 Patient Position Hooklying Combined With Heat/Cold Cold Pack Comments bolster PT-OP-T Assessment and Plan Start: 11/11/17 12:08 Freq: Status: Active Protocol: Document 02/13/18 09:45 DCW (Rec: 02/13/18 10:28 DCW [id number]) Physical Therapy Assessment Impairments Impairments Activity Tolerance Edema Functional Mobility Gait Integument Pain ROM Sensation Soft Tissue Mobility Strength Goals 3 Impairment Activity tolerance Short Term Goal (STG) Pt to tolerate ambulating up to 1/2 mile with her dog in 4- 6 weeks. STG Duration Met Matting Press Tender Goal (LTG) Pt to tolerate ambulating up to 2 miles with her dog. LTG Duration 4 wks 2 Impairment Gait Short Term Goal (STG) Progress to gait on level ground with single point cane in 3-4 weeks. STG Duration Met Matting Press Tender Goal (LTG) Progress to independent with no AD on level ground in 8 weeks. LTG Duration Met One Impairment ROM Short Term Goal (STG) Improve R knee ROM to 0-90 degrees in 2-3 weeks. STG Duration Met Matting Press Tender Goal (LTG) R knee ROM 0-130 activein 6-8 weeks. LTG Duration 4 wk Progress Towards Goals Progress Towards Goals Progressing Toward Goals Assessment Summary Assessment Pt doing well today, approaching discharge, likely within the nex week. Physical Therapy Plan Frequency and Duration Frequency of Treatment 2x/Week Duration of Treatment 6 weeks Plan of Care Start Date 01/31/18 Plan of Care End Date 03/14/18 Therapeutic Interventions Therapeutic Interventions Aquatic Therapy Gait Training Home Exercise Program Joint Mobilizations Manual Therapy Neuromuscular Re-education Self-Care/Home Management Soft Tissue Mobilization Therapeutic Activities Therapeutic Exercises Modalities Cold Pack/Ice Massage Electric Stimulation Next Visit Focus/Plan Next Note Type Treatment Note Next Visit Plan Continue with strengthening protocol, progress uneven surface challenges.
--- NOTE | 2018-02-17 10:26 | PT.OTN ---
Current Diagnoses Presence of right artificial knee joint (02/17/18) Physical Therapy Treatment Note PT-OP-A Visit Information Start: 11/11/17 12:08 Freq: Status: Active Protocol: Document 02/17/18 09:45 DCW (Rec: 02/17/18 10:26 DCW [id number]) Out-Patient Physical Therapy Visit Information Visit Information Visit Type Treatment Note Visit Start Time 09:45 Visit Stop Time 10:40 Total Visit Minutes 55 Visit Number 26 Number of FOREIGN AGENT Visits 0 Evaluation Information Evaluation Date 11/11/17 PT-OP-B Current Condition Start: 11/11/17 12:08 Freq: Status: Active Protocol: Document 11/11/17 12:05 MDD (Rec: 11/11/17 12:35 MDD [id number]) Current Condition History of Current Condition Onset Date 11/05/17 Current Complaints R knee pain s/p R TKA History of Current Condition Pt had left knee replaced 1.5 years ago. Reports she had an arthroscopic surgery on the R knee in and didn't have any trouble with her R knee until she was rehabing her L knee replacement. Her surgery was performed on 11/05/[address] Peña at [facility]. Pt also reports history of R sciatic pain that was very aggravated before her surgery. She has not felt it recently , but is cautious about her movements because of it. Treatment Goals Patient/Caregiver Goals Pt would like to decrease pain , be able to return to riding her bike, walking her dog and swimming. 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 Current Functional Impairments (Reported) Functional Limitations- ADL's Difficulty standing up from low seat, rolling in bed Functional Limitations- Recreation/ unable to walk long distances Hobbies with her dog, bike or swim PT-OP-C Subjective Start: 11/11/17 12:08 Freq: Status: Active Protocol: Document 02/17/18 09:45 DCW (Rec: 02/17/18 10:26 DCW [id number]) OP-PT Subjective Patient Comments Patient Comments It's about the same as always . Patient Reported Progress Same PT-OP-G Mobility & Gait Start: 11/11/17 12:08 Freq: Status: Active Protocol: Document 01/31/18 09:45 DCW (Rec: 01/31/18 09:52 DCW [id number]) OP Gait Assessment Gait Gait Assistance Required: Independent Distance (Feet) 300 Able to Maintain Weight Bearing Status Yes During Gait Assistive Devices Assistive Device None Gait Deviations General Gait Pattern Antalgic PT-OP-J Posture/Palpation/Skin Start: 11/11/17 12:08 Freq: Status: Active Protocol: Document 01/31/18 09:45 DCW (Rec: 01/31/18 09:52 DCW [id number]) Palpation Assessment Location One Palpation Location R ITB Palpation Findings Tenderness Palpation Details Grade 2/4 - Pain with wincing PT-OP-K Range of Motion Start: 11/11/17 12:08 Freq: Status: Active Protocol: Document 01/31/18 09:45 DCW (Rec: 01/31/18 09:52 DCW [id number]) Knee Goniometric Range of Motion Knee Measured in Degrees Right Patient Position Supine Flexion Active (degrees) 123 Flexion Passive (degrees) 126 Extension Active (degrees) 0 Knee ROM Limitations Knee ROM Limitations Pain PT-OP-Q Treatments Start: 11/11/17 12:08 Freq: Status: Active Protocol: Document 02/17/18 09:45 DCW (Rec: 02/17/18 10:26 DCW [id number]) Cardio Equipment Recumbent Bicycle Duration (Minutes) 6 Resistance 5 Seat Position 3 Gym Equipment Shuttle Recovery Unilateral Squats Resistance 62# Shuttle Recovery Platform Stable Reps/Time 2 x 15 Bilateral Squats Resistance 112# Shuttle Recovery Platform Stable Reps/Time 2 x 15 Therapeutic Exercises Standing Exercises 7 Standing Exercise Name BOSU lunge Side right Equipment Used BOSU (Blue) heel cord stretch Standing Exercise Name heel cord stretch Side bilateral Equipment Used VICKIE 1 Standing Exercise Name Rails side steps squat w/ heel raises Resistance Green Equipment Used T-band Manual Therapy Treatment Soft Tissue Mobilization scar tissue Body Location R anterior knee Mobilization Type Other Intensity/Depth Moderate Body Position Supine Joint Mobilizations 2 Joint tibiofemoral joint Direction inferior femur on tibia Grade III Body Position Supine PT-OP-R Modalities Start: 11/11/17 12:08 Freq: Status: Active Protocol: Document 02/17/18 09:45 DCW (Rec: 02/17/18 10:26 DCW [id number]) Electric Stimulation Electric Stimulation Interferential Current (IFC) Body Location R knee Duration (Minutes) 15 Intensity 41 Patient Position Hooklying Combined With Heat/Cold Cold Pack Comments georgister PT-OP-T Assessment and Plan Start: 11/11/17 12:08 Freq: Status: Active Protocol: Document 02/17/18 09:45 DCW (Rec: 02/17/18 10:26 DCW [id number]) Physical Therapy Assessment Impairments Impairments Activity Tolerance Edema Functional Mobility Gait Integument Pain ROM Sensation Soft Tissue Mobility Strength Goals 3 Impairment Activity tolerance Short Term Goal (STG) Pt to tolerate ambulating up to 1/2 mile with her dog in 4- 6 weeks. STG Duration Met Snf Goal (LTG) Pt to tolerate ambulating up to 2 miles with her dog. LTG Duration 4 wks 2 Impairment Gait Short Term Goal (STG) Progress to gait on level ground with single point cane in 3-4 weeks. STG Duration Met Snf Goal (LTG) Progress to independent with no AD on level ground in 8 weeks. LTG Duration Met One Impairment ROM Short Term Goal (STG) Improve R knee ROM to 0-90 degrees in 2-3 weeks. STG Duration Met Executive Relations Specialist Goal (LTG) R knee ROM 0-130 active in 6-8 weeks. LTG Duration 4 wk Assessment Summary Assessment Pt has one more scheduled visit remaining, doing well enough that she will be appropriate for discharge at that time. Focus next visit on continued HEP and any remaining complaints. Physical Therapy Plan Frequency and Duration Frequency of Treatment 2x/Week Duration of Treatment 6 weeks Plan of Care Start Date 01/31/18 Plan of Care End Date 03/14/18 Therapeutic Interventions Therapeutic Interventions Aquatic Therapy Gait Training Home Exercise Program Joint Mobilizations Manual Therapy Neuromuscular Re-education Self-Care/Home Management Soft Tissue Mobilization Therapeutic Activities Therapeutic Exercises Modalities Cold Pack/Ice Massage Electric Stimulation Next Visit Focus/Plan Next Note Type Discharge Summary Next Visit Plan Advance HEP
--- NOTE | 2018-02-20 10:29 | PT.OTN ---
Current Diagnoses Presence of right artificial knee joint (02/20/18) Physical Therapy Treatment Note PT-OP-A Visit Information Start: 11/11/17 12:08 Freq: Status: Active Protocol: Document 02/20/18 09:45 DCW (Rec: 02/20/18 10:02 DCW [id number]) Out-Patient Physical Therapy Visit Information Visit Information Visit Type Discharge Summary Visit Start Time 09:45 Visit Stop Time 10:40 Total Visit Minutes 55 Visit Number 27 Number of GEOPHYSICAL E LOGGER Visits 0 Evaluation Information Evaluation Date 11/11/17 PT-OP-B Current Condition Start: 11/11/17 12:08 Freq: Status: Active Protocol: Document 11/11/17 12:05 MDD (Rec: 11/11/17 12:35 MDD [id number]) Current Condition History of Current Condition Onset Date 11/05/17 Current Complaints R knee pain s/p R TKA History of Current Condition Pt had left knee replaced 1.5 years ago. Reports she had an arthroscopic surgery on the R knee in and didn't have any trouble with her R knee until she was rehabing her L knee replacement. Her surgery was performed on 11/05/[address] Peña at [facility]. Pt also reports history of R sciatic pain that was very aggravated before her surgery. She has not felt it recently , but is cautious about her movements because of it. Treatment Goals Patient/Caregiver Goals Pt would like to decrease pain , be able to return to riding her bike, walking her dog and swimming. 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 Current Functional Impairments (Reported) Functional Limitations- ADL's Difficulty standing up from low seat, rolling in bed Functional Limitations- Recreation/ unable to walk long distances Hobbies with her dog, bike or swim PT-OP-C Subjective Start: 11/11/17 12:08 Freq: Status: Active Protocol: Document 02/20/18 09:45 DCW (Rec: 02/20/18 10:02 DCW [id number]) OP-PT Subjective Patient Comments Patient Comments Pt reports she really worked myself yesterday with trips to [facility] and [place], but felt pretty good afterward PT-OP-G Mobility & Gait Start: 11/11/17 12:08 Freq: Status: Active Protocol: Document 02/20/18 09:45 DCW (Rec: 02/20/18 10:06 DCW [id number]) OP Gait Assessment Gait Gait Assistance Required: Independent Able to Maintain Weight Bearing Status Yes During Gait Comments Gait Comments Community distances PT-OP-J Posture/Palpation/Skin Start: 11/11/17 12:08 Freq: Status: Active Protocol: Document 02/20/18 09:45 DCW (Rec: 02/20/18 10:06 DCW [id number]) Palpation Assessment Location One Palpation Location R ITB Palpation Findings Tenderness Palpation Details Grade 1/4 - Complaint of Pain PT-OP-K Range of Motion Start: 11/11/17 12:08 Freq: Status: Active Protocol: Document 02/20/18 09:45 DCW (Rec: 02/20/18 10:06 DCW [id number]) Knee Goniometric Range of Motion Knee Measured in Degrees Right Flexion Active (degrees) 126 Flexion Passive (degrees) 128 Extension Active (degrees) 0 PT-OP-Q Treatments Start: 11/11/17 12:08 Freq: Status: Active Protocol: Document 02/20/18 09:45 DCW (Rec: 02/20/18 10:29 DCW [id number]) Cardio Equipment Recumbent Bicycle Duration (Minutes) 6 Resistance 5 Seat Position 3 Gym Equipment Shuttle Recovery Unilateral Squats Resistance 62# Shuttle Recovery Platform Stable Reps/Time 2 x 15 Bilateral Squats Resistance 112# Shuttle Recovery Platform Stable Reps/Time 2 x 15 Therapeutic Exercises Standing Exercises 7 Standing Exercise Name BOSU lunge Side right Equipment Used BOSU (Blue) heel cord stretch Standing Exercise Name heel cord stretch Side bilateral Equipment Used VICKIE 1 Standing Exercise Name Rails side steps squat w/ heel raises Resistance Green Equipment Used T-band Manual Therapy Treatment Soft Tissue Mobilization scar tissue Body Location R anterior knee Mobilization Type Other Intensity/Depth Moderate Body Position Supine Joint Mobilizations 2 Joint tibiofemoral joint Direction inferior femur on tibia Grade III Body Position Supine PT-OP-R Modalities Start: 11/11/17 12:08 Freq: Status: Active Protocol: Document 12/06/18 09:45 DCW (Rec: 12/06/18 10:29 DCW [id number]) Electric Stimulation Electric Stimulation Interferential Current (IFC) Body Location R knee Duration (Minutes) 15 Intensity 41 Patient Position Hooklying Combined With Heat/Cold Cold Pack Comments bolster PT-OP-T Assessment and Plan Start: 11/11/17 12:08 Freq: Status: Active Protocol: Document 02/20/18 09:45 DCW (Rec: 02/20/18 10:29 DCW [id number]) Physical Therapy Assessment Impairments Impairments Activity Tolerance Edema Functional Mobility Gait Integument Pain ROM Sensation Soft Tissue Mobility Strength Goals 3 Impairment Activity tolerance Short Term Goal (STG) Pt to tolerate ambulating up to 1/2 mile with her dog in 4- 6 weeks. STG Duration Met Jail Goal (LTG) Pt to tolerate ambulating up to 2 miles with her dog. LTG Duration Met 2 Impairment Gait Short Term Goal (STG) Progress to gait on level ground with single point cane in 3-4 weeks. STG Duration Met Jail Goal (LTG) Progress to independent with no AD on level ground in 8 weeks. LTG Duration Met One Impairment ROM Short Term Goal (STG) Improve R knee ROM to 0-90 degrees in 2-3 weeks. STG Duration Met Jail Goal (LTG) R knee ROM 0-130 activein 6-8 weeks. LTG Duration 4 wk Progress Towards Goals Progress Towards Goals Progressing Toward Goals Goals Met Assessment Summary Assessment Pt has met nearly all goals, with the exception of right flexion at 126 instead of 130 degrees. Pt appropriate for discharge at this time. Physical Therapy Plan Frequency and Duration Frequency of Treatment 2x/Week Duration of Treatment 6 weeks Plan of Care Start Date 01/31/18 Plan of Care End Date 03/14/18 Therapeutic Interventions Therapeutic Interventions Aquatic Therapy Gait Training Home Exercise Program Joint Mobilizations Manual Therapy Neuromuscular Re-education Self-Care/Home Management Soft Tissue Mobilization Therapeutic Activities Therapeutic Exercises Modalities Cold Pack/Ice Massage Electric Stimulation Discharge Physical Therapy Discharge Reasons Goals Met
== END 2018-03-03 10:51 ==
LOC: PHYS 09:45
PROVIDERS: Visit Provider Orthopaedic Surgery
DX: Z96.651 Presence of right artificial knee joint (principal)
CPT/HCPCS: 97010; 97014; 97110; 97116; 97140; 97161; G0283

== ENCOUNTER 2018-06-12 08:40 | Emergency (ER) | payer MEDICARE, OTHER, SELFPAY ==
[2018-06-12 08:55] VITALS: BP 158/94; PULSE 81; RESP 18; TEMP 37.1; O2SAT 100; BMI 28.8
[2018-06-12 09:15] LABS: Bacteria Urine None Seen; RBC Urine None Seen (0-5/HPF)
[2018-06-12 09:28] LABS: Culture Indicated Urine Specimen Cultured; WBC Urine 5-10/HPF (0-5/HPF)
[2018-06-12 10:07] LABS: Add Manual Diff / Slide Review NO; Basophils Absolute Auto 100 /uL (0-100); Basophils Percent Auto 1.4 % (0-2); Eosinophils Absolute Auto 100 /uL (0-450); Eosinophils Percent Auto 2.6 % (2-4); Hematocrit 38.5 % (36-46); Hemoglobin 13.7 g/dL (12.0-16.0); Lymphocytes Absolute Auto 1700 /uL (1100-4500); Mean Corpuscular HGB Conc 35.4 % (30-36); Mean Corpuscular Hemoglobin 31.5 PG (26-34); Mean Corpuscular Volume 88.8 fL (80-100); Monocytes Absolute Auto 300 /uL (0-900); Monocytes Percent Auto 6.3 % (3-14); Neutrophils Absolute Auto 2100 /uL (1500-7000); Neutrophils Percent Auto 49.7 % (50-75); Platelet Count 212 X10^3/uL (150-400); Red Blood Cell Count 4.34 X10^6/uL (4.0-5.2); Red Cell Distribution Width 12.3 % (11.6-14.8); White Blood Cell Count 4.2 X10^3/uL (4.5-11.0)
[2018-06-12 10:16] LABS: Alanine Aminotransferase 32 IU/L (9-52); Albumin 4.5 g/dL (3.5-5.0); Albumin Globulin Ratio 1.5 (1.0-2.8); Alkaline Phosphatase 74 U/L (38-126); Aspartate Aminotransferase 28 IU/L (14-36); BUN Creatinine Ratio 16.3 (6-22); Bilirubin Total 0.6 mg/dL (0.2-1.3); Blood Urea Nitrogen 13 mg/dL (7-17); Calcium 9.9 mg/dL (8.4-10.2); Carbon Dioxide 29 mmol/L (22-32); Chloride 104 mmol/L (98-107); Estimated Glomerular Filt Rate > 60.0 mL/min (>60); Glucose 94 mg/dL (80-110); HEMOLYSIS < 15 (0-50); Lipase 72 U/L (23-300); Potassium 4.1 mmol/L (3.4-5.1); Sodium 141 mmol/L (137-145); Total Protein 7.5 g/dL (6.3-8.2)
--- NOTE | 2018-06-12 10:16 | ED_ITS ---
HPI - Abdominal Pain General Chief Complaint: Abdominal Pain Stated Complaint: Burning pain by navel, left side Time Seen by Provider: 06/12/18 09:59 Source: patient Mode of arrival: ambulatory Limitations: no limitations History of Present Illness HPI narrative: Patient is a 77-year-old female who presents with abdominal burning to the left of her umbilical area. She has a history of a small-bowel obstruction which required a colectomy. She denies any nausea vomiting no fever she is passing gas and having regular bowel movements. She says she has had this in the past but it never lasts for this long. MD complaint: abdominal pain Pain Consistency: intermittent Related Data Home Medications Medication Instructions Recorded Confirmed levothyroxine [Synthroid] 0.075 mg PO QDAY #0 09/29/11 09/29/17 gabapentin 06/12/18 Previous Rx's Medication Instructions Recorded nitrofurantoin monohyd/m-cryst 100 mg PO BID #10 cap 01/06/18 [Macrobid] ciprofloxacin HCl [Cipro] 500 mg PO BID #14 tab 06/12/18 metronidazole [Flagyl] 500 mg PO TID #21 tab 06/12/18 Allergies Allergy/AdvReac Type Severity Reaction Status Date / Time codeine [CODEINE] Allergy Severe CHANGE IN Verified 06/12/18 08:55 BEHAVIOR latex [LATEX] Allergy Severe FEVER Verified 06/12/18 08:55 BLISTERS penicillin V [PENICILLIN V] Allergy Severe ANAPHYLAXIS Verified 06/12/18 08:55 hydroxychloroquine Allergy Intermediate Verified 06/12/18 08:55 [HYDROXYCHLOROQUINE] simvastatin [From ZOCOR] Allergy Intermediate Verified 06/12/18 08:55 venlafaxine [VENLAFAXINE] Allergy Intermediate Verified 06/12/18 08:55 Metal Allergy Severe Rash/Hives/ Uncoded 06/12/18 08:55 Itching Review of Systems Review of Systems ROS Unobtainable: All systems reviewed & are unremarkable except as noted in HPI and below Constitutional Denies chills, Denies fever(s), Denies lethargy and Denies weakness Eyes Denies change in vision, Denies eye discharge, Denies irritation and Denies loss of vision Cardiovascular Denies chest pain, Denies irregular heart rhythm, Denies lightheadedness, Denies palpitations, Denies dyspnea, Denies dyspnea on exertion and Denies orthopnea Respiratory Denies cough, Denies dyspnea, Denies dyspnea on exertion and Denies wheezing Gastrointestinal Gastrointestinal: Reports as per HPI Musculoskeletal Denies back pain, Denies muscle weakness, Denies numbness and Denies tingling Integumentary/Breasts Denies pruritus, Denies erythema, Denies rash and Denies wounds Neurologic Denies loss of vision, Denies numbness, Denies tingling and Denies weakness Endocrine Denies palpitations Allergic/Immunologic Denies wheezing PFSH Medical History Hypothyroid (Acute) Surgical History H/O: knee surgery (Acute) Social History (Updated 06/12/18 @ 10:15 by Minal Garcia DO) Smoking Status: Never smoker alcohol intake: never substance use type: does not use Exam Initial Vital Signs Initial Vital Signs: Vital Signs Temperature 98.7 F 06/12/18 08:55 Pulse Rate 81 06/12/18 08:55 Respiratory Rate 18 06/12/18 08:55 Blood Pressure 158/94 H 06/12/18 08:55 Pulse Oximetry 100 06/12/18 08:55 GENERAL: Female patient alert and oriented x3 no acute distress HEENT: Head atraumatic,EOMI, pupils reactive, CARDIOVASCULAR: Regular rate and rhythm without murmurs, rubs or gallops. RESPIRATORY: Breath sounds equal bilaterally, no wheezes rales or rhonchi. ABDOMEN: Soft, scar noted from umbilicus to pubis area normal bowel sounds slightly tender all over no distension no guarding or EXTREMITIES: Normal range of motion, no clubbing or edema. Neurovascularly intact NEUROLOGICAL: Alert and oriented x4.Normal gait and speech. SKIN: Warm, dry, no laceration, no petechiae, no rashes or lesions. Course Orders Ordered: ED Orders 06/12/18 09:58 Complete Blood Count AUTO DIFF Stat Comprehensive Metabolic Panel Stat Lipase Stat 06/12/18 10:25 CT abdomen pelvis w con Stat Vital Signs - 8 hr 06/12/18 10:55 06/12/18 12:11 Pulse Rate 70 62 Respiratory Rate 16 20 Blood Pressure 157/96 H Blood Pressure [Left Arm] 151/79 H Pulse Oximetry 98 98 MDM - Abdominal Pain Lab Data Attestation: I reviewed the patient's lab results. Result diagrams: 06/12/18 09:58 06/12/18 09:58 Lab Results 06/12/18 06/12/18 06/12/18 Range/Units 09:12 09:58 09:58 WBC 4.2 L (4.5-11.0) X10^3/uL RBC 4.34 (4.0-5.2) X10^6/uL Hgb 13.7 (12.0-16.0) g/dL Hct 38.5 (36-46) % MCV 88.8 (80-100) fL MCH 31.5 (26-34) PG MCHC 35.4 (30-36) % RDW 12.3 (11.6-14.8) % Plt Count 212 (150-400) X10^3/uL Neut % (Auto) 49.7 L (50-75) % Lymph % (Auto) 40.0 (25-40) % Spencer % (Auto) 6.3 (3-14) % Eos % (Auto) 2.6 (2-4) % Baso % (Auto) 1.4 (0-2) % Neut # (Auto) 2100 (3306-3879) /uL Lymph # (Auto) 1700 (0077-2650) /uL Spencer # (Auto) 300 (0-900) /uL Eos # (Auto) 100 (0-450) /uL Baso # (Auto) 100 (0-100) /uL Sodium 141 (137-145) mmol/L Potassium 4.1 (3.4-5.1) mmol/L Chloride 104 (98-107) mmol/L Carbon Dioxide 29 (22-32) mmol/L BUN 13 (7-17) mg/dL Creatinine 0.80 (0.52-1.04) mg/dL Estimated GFR > 60.0 (>60) mL/min BUN/Creatinine Ratio 16.3 (6-22) Glucose 94 (80-110) mg/dL Calcium 9.9 (8.4-10.2) mg/dL Total Bilirubin 0.6 (0.2-1.3) mg/dL AST 28 (14-36) IU/L ALT 32 (9-52) IU/L Alkaline Phosphatase 74 (38-126) U/L Total Protein 7.5 (6.3-8.2) g/dL Albumin 4.5 (3.5-5.0) g/dL Globulin 3.0 (1.7-4.1) g/dL Albumin/Globulin Ratio 1.5 (1.0-2.8) Lipase 72 (23-300) U/L Urine RBC None seen (0-5/HPF) Urine WBC 5-10/hpf H (0-5/HPF) Urine Bacteria None seen (None) Ur Culture Indicated? Specimen cultured Point of care testing: Urine Dip Bedside Urine Glucose Negative Bedside Urine Bilirubin - Negative Bedside Urine Ketone - Negative Urine Specific Olivia 1.030 Bedside Urine Occult Blood - Negative Bedside Urine pH 6.0 Bedside Urine Protein - Negative Bedside Urine Nitrite - Negative Bedside Urine Leukocytes +/- [address] scan - abdomen: Radiologist's impression: PROCEDURE: CT ABDOMEN PELVIS W CON INDICATIONS: pain, hx of small bowel obstructions TECHNIQUE: After the administration of intravenous contrast, 5 mm thick sections acquired from the diaphragm to the symphysis. 5 mm coronal and sagittal reformats were acquired. For radiation dose reduction, the following was used: automated exposure control, adjustment of mA and/or kV according to patient size. COMPARISON: [facility], CT, ABDOMEN/PELVIS WITH CONTRAST, 11/13/2016, 17:40. FINDINGS: Image quality: Excellent. ABDOMEN: Lung bases: 8 mm lingular nodule and 9 mm subpleural right lower lobe lung nodule. Mild bilateral pleural based focal thickening. No parenchymal consolidations. Heart size is normal. Solid organs: Liver is normal in size and enhancement. Gallbladder is surgically absent. Biliary system is non dilated. Pancreas enhances normally. Spleen is normal in size and enhancement. No adrenal nodules. Kidneys demonstrate normal size and enhancement, without hydronephrosis. Peritoneum and bowel: The stomach is decompressed. The second portion of the duodenum demonstrates diffuse circumferential wall thickening without luminal distention, similar to slightly worse compared to the prior study. No evidence of small bowel obstruction. Normal appendix. Decompressed colon without significant pericolonic inflammation. There are multiple sigmoid diverticula. There is mild colonic wall thickening and trace surrounding inflammation adjacent to the midsigmoid. No evidence of free fluid or extraluminal gas. Elsewhere, the descending colon demonstrates mild circumferential long segment wall thickening. No free fluid or air. Nodes and vessels: No retroperitoneal or mesenteric adenopathy by size criteria. Aorta and inferior vena cava are normal in size. Moderate distal abdominal aortic atherosclerosis. Miscellaneous: No ventral hernias. PELVIS: Genitourinary: Bladder wall thickness is normal. Miscellaneous: No inguinal hernias or adenopathy. Bones: No suspicious bony lesions. Bony degenerative changes at L4-5 resulting in moderate central canal stenosis. No vertebral body compression fractures. IMPRESSION: 1. Mild wall thickening in the distal colon and midsigmoid suggestive of early colitis. No evidence of perforation or abscess. 2. Chronic mucosal thickening of the second portion of the duodenum suggests chronic duodenitis. Correlate clinically. 3. Multiple lung base nodules, most of which are stable, the lingular nodule is new. Routine chest CT for further evaluation is recommended. 4. Cholecystectomy. Dictated by: Amira Bourne M.D. on 06/12/2018 at 10:58 MDM Narrative Medical decision making narrative: Patient overall is feeling better at this time does not meet any sort of admission criteria. Will treat with antibiotics. Discharge Plan Departure Patient Disposition: Home Clinical Impression: Colitis Discharge Date/Time: 06/12/18 12:11 Interventions: ED Discharge Assessment Last Done: 06/12/18 12:11 Instructions: DI for Colitis Activity Restrictions/Additional Instructions: *You have been diagnosed with colitis *What to do: At this time no sign of small bowel obstruction however you do have a minor start of infection in her colon. *Continue to take medications as directed Cipro 500 mg twice a day for 1 week Flagyl 500 mg 3 times a day for 1 *Follow up with your primary care provider in 2-3 days *Return to ER if you should have bloody stool, increasing abdominal pain, fever or any new, worsening or concerning symptoms Prescriptions: New metronidazole [Flagyl] 500 mg tablet 500 mg PO TID Qty: 21 RF: 0 ciprofloxacin HCl [Cipro] 500 mg tablet 500 mg PO BID Qty: 14 RF: 0 No Action levothyroxine [Synthroid] 75 MCG tablet 0.075 mg PO QDAY Qty: 0 RF: 0 nitrofurantoin monohyd/m-cryst [Macrobid] 100 mg capsule 100 mg PO BID Qty: 10 RF: 0 gabapentin 100 mg capsule RF: 0 Referrals: Arianna Cox MD [Primary Care Provider] -
--- NOTE | 2018-06-12 10:25 | DI.CT.S_ITS ---
PROCEDURE: CT ABDOMEN PELVIS W CON INDICATIONS: pain, hx of small bowel obstructions TECHNIQUE: After the administration of intravenous contrast, 5 mm thick sections acquired from the diaphragm to the symphysis. 5 mm coronal and sagittal reformats were acquired. For radiation dose reduction, the following was used: automated exposure control, adjustment of mA and/or kV according to patient size. COMPARISON: [facility], CT, ABDOMEN/PELVIS WITH CONTRAST, 11/13/2016, 17:40. FINDINGS: Image quality: Excellent. ABDOMEN: Lung bases: 8 mm lingular nodule and 9 mm subpleural right lower lobe lung nodule. Mild bilateral pleural based focal thickening. No parenchymal consolidations. Heart size is normal. Solid organs: Liver is normal in size and enhancement. Gallbladder is surgically absent. Biliary system is non dilated. Pancreas enhances normally. Spleen is normal in size and enhancement. No adrenal nodules. Kidneys demonstrate normal size and enhancement, without hydronephrosis. Peritoneum and bowel: The stomach is decompressed. The second portion of the duodenum demonstrates diffuse circumferential wall thickening without luminal distention, similar to slightly worse compared to the prior study. No evidence of small bowel obstruction. Normal appendix. Decompressed colon without significant pericolonic inflammation. There are multiple sigmoid diverticula. There is mild colonic wall thickening and trace surrounding inflammation adjacent to the midsigmoid. No evidence of free fluid or extraluminal gas. Elsewhere, the descending colon demonstrates mild circumferential long segment wall thickening. No free fluid or air. Nodes and vessels: No retroperitoneal or mesenteric adenopathy by size criteria. Aorta and inferior vena cava are normal in size. Moderate distal abdominal aortic atherosclerosis. Miscellaneous: No ventral hernias. PELVIS: Genitourinary: Bladder wall thickness is normal. Miscellaneous: No inguinal hernias or adenopathy. Bones: No suspicious bony lesions. Bony degenerative changes at L4-5 resulting in moderate central canal stenosis. No vertebral body compression fractures. IMPRESSION: 1. Mild wall thickening in the distal colon and midsigmoid suggestive of early colitis. No evidence of perforation or abscess. 2. Chronic mucosal thickening of the second portion of the duodenum suggests chronic duodenitis. Correlate clinically. 3. Multiple lung base nodules, most of which are stable, the lingular nodule is new. Routine chest CT for further evaluation is recommended. 4. Cholecystectomy. Dictated by: Amira Bourne M.D. on 06/12/2018 at 10:58 Approved by: Amira Bourne M.D. on 06/12/2018 at 11:23
[2018-06-12 10:55] VITALS: BP 151/79; PULSE 70; RESP 16; O2SAT 98
[2018-06-12 12:11] VITALS: BP 157/96; PULSE 62; RESP 20; O2SAT 98
== END 2018-06-12 12:11 | disposition home or self-care (01) ==
PROVIDERS: Emergency Provider Emergency Medicine; PCP Internal Medicine
DX: K52.9 Noninfective gastroenteritis and colitis, unspecified (principal)
CPT/HCPCS: 36591; 74177; 80053; 81003; 81015; 83690; 85025; 87086; 99282; 99284; Q9967

== ENCOUNTER → 2018-06-20 10:59 | Outpatient (CLI) | payer MEDICARE, OTHER, SELFPAY ==
--- NOTE | 2018-06-20 | DI.CT.S_ITS ---
PROCEDURE: CT CHEST WO CON INDICATIONS: Solitary pulmonary nodule TECHNIQUE: Noncontrast 2.0-2.5 mm thick sections acquired from the pulmonary apices to the posterior costophrenic angles. 7 mm thick coronal and sagittal MIP reformats were then acquired. A low radiation dose technique was utilized. COMPARISON: [facility], CT, CT ABDOMEN PELVIS W CON, 06/12/2018, 10:24. FINDINGS: Image quality: Diagnostic, given the low radiation dose technique. Lungs and pleura: Minimal biapical scarring is seen. 8mm soft tissue density nodule in lateral aspect of posterior lingular segment is again seen series 4 image [address] study. 5 mm subpleural nodule involving posterior medial aspect of right lower lobe is seen series 4 image 28. 8-9 mm soft tissue density nodule is also seen in posterior lateral aspect of right lower lobe series 4 image 27 nodular pleural thickening involving lateral pleura of right lower lobe is seen measures 9 x 4 mm in size series 4 image 30. A 4 mm nodular density in anterolateral aspect of right middle lobe near right lung base is seen series 4 image 33. No pleural effusion or pneumothorax. Central and peripheral airways are patent. Mediastinum: Heart size is normal. No pericardial effusion. No mediastinal adenopathy by size criteria. Coronary artery calcifications are seen. Thoracic aorta and central pulmonary arteries are normal in size. Esophagus is normal in caliber. No hiatal hernia. Bones and chest wall: No suspicious bony lesions. No vertebral body compression fractures. No axillary or supraclavicular adenopathy by size criteria. Thyroid gland is within normal limits. Abdomen: Visualized upper abdomen solid organs and bowel loops appear normal in the absence of contrast. Gallbladder is surgically absent. IMPRESSION: 1. 4 subcentimeter subpleural nodules scattered in bilateral lung munoz as described in detail above measures up to 9 mm in size in posterior lateral aspect of right lower lobe. 9 x 4 mm nodular pleural thickening is also seen in posterior lateral aspect of right lower lobe.Followup CT in 3-6 months is recommended. Fleischner Society criteria for SOLID lung nodule followup. Nodule size (mm)Low-risk patientHigh-risk patient<6 (single or multiple)No routine followup.Optional CT at 12 months. 6-8 (single or multiple)CT at 6-12 months, then optional CT at 18-24 mo.CT at 6-12 months, then CT at 18-24 months. >8 (single)CT at 3 months, PET-CT, or biopsy. Same as for low-risk pts. >8 (multiple)CT at 3-6 months, then optional CT at 18-24 mo.CT at 3-6 months, then CT at 18-24 months. Fleischner Society criteria for SUB-SOLID lung nodule followup. Solitary pure ground-glass nodules<6 mm (ground glass or part solid)No followup needed. 6 mm or larger (ground glass)CT at 6-12 months to confirm persistence, then CT every 2 years until 5 years.6 mm or larger (part solid)CT at 3-6 months to confirm persistence, then annual CT until 5 years if unchanged and solid component remains <6 mm. Multiple sub-solid nodules<6 mmCT at 3-6 months, then CT consider at 2 & 4 years for high risk patients. [address] at 3-6 months. Subsequent management based on most suspicious lesions. Recommendations do not apply to lung cancer screening, patients with immunosuppression, or patients with known primary cancer. Dictated by: Gordon Dobbins M.D. on 06/20/2018 at 13:20 Approved by: Gordon Dobbins M.D. on 06/20/2018 at 13:29
== END ==
PROVIDERS: PCP Internal Medicine; Visit Provider Student in an Organized Health Care Education/Training Program
DX: R91.8 Other nonspecific abnormal finding of lung field (principal)
CPT/HCPCS: 71250

== ENCOUNTER → 2018-08-07 08:13 | Outpatient (CLI) | payer MEDICARE, OTHER, SELFPAY ==
--- NOTE | 2018-08-07 | DI.MG.S_ITS ---
BILATERAL DIGITAL SCREENING MAMMOGRAM 3D/2D WITH CAD: 08/07/2018 CLINICAL: Routine screening. Comparison is made to exams dated: 08/25/2012 mammogram, 01/18/2010 mammogram, and 01/11/2009 mammogram - [facility]. There are scattered fibroglandular elements in both breasts. Current study was also evaluated with a Computer Aided Detection (CAD) system. There are benign post operative findings in the right breast. There also are a benign calcification and post operative findings in the left breast. No significant masses, calcifications, or other findings are seen in either breast. There has been no significant interval change. IMPRESSION: There is no mammographic evidence of malignancy. A 1 year screening mammogram is recommended. This exam was interpreted at Station ID: [id number]. NOTE: For mammograms, a report in lay terms will be sent to the patient. Approximately 15% of breast malignancies will not be visualized mammographically. In the management of a palpable breast mass, a negative mammogram must not discourage biopsy of a clinically suspicious lesion. Electronically Signed By: Cliff valle/nadeem:08/07/2018 12:50:12 letter sent: Normal Exam ACR BI-RADS Category 2: Benign Finding(s) 3342F
== END ==
PROVIDERS: PCP Internal Medicine; Visit Provider Internal Medicine
DX: Z12.31 Encounter for screening mammogram for malignant neoplasm of breast (principal)
CPT/HCPCS: 77063; 77067

== ENCOUNTER → 2018-08-21 13:32 | Outpatient (CLI) | payer MEDICARE, OTHER, SELFPAY ==
[2018-08-21 13:44] LABS: RBC Urine None Seen (0-5/HPF)
[2018-08-21 14:21] LABS: Appearance Urine UA CLEAR; Bilirubin Urine UA NEGATIVE (NEGATIVE); Color Urine UA YELLOW; Glucose Urine UA NEGATIVE (Negative); Ketones Urine UA NEGATIVE (NEGATIVE); Leukocyte Esterase Urine UA TRACE (NEGATIVE); Nitrite Urine UA NEGATIVE (Negative); Occult Blood Urine UA NEGATIVE (Negative); Protein Urine UA NEGATIVE (Negative); Urobilinogen Urine UA 0.2 E.U./dL (0.2); pH Urine UA 6.5 (4.5-8.0)
[2018-08-21 14:35] LABS: Squamous Epithelial Cell Urine 0-1 /HPF (0-5/HPF); WBC Urine 1-5/HPF (0-5/HPF)
[2018-08-21 14:36] LABS: Bacteria Urine Occasional (0-1); Culture Indicated Urine Specimen Cultured
== END ==
PROVIDERS: Family Provider Internal Medicine; PCP Internal Medicine; Visit Provider Neurological Surgery
DX: Z01.812 Encounter for preprocedural laboratory examination (principal)
CPT/HCPCS: 81001; 87086

== ENCOUNTER → 2018-10-22 09:44 | Outpatient (CLI) | payer MEDICARE, OTHER, SELFPAY ==
--- NOTE | 2018-10-22 | DI.RAD.S_ITS ---
PROCEDURE: XR LUMBAR SPINE 2-3V INDICATIONS: Spondylolisthesis TECHNIQUE: 3 views of the lumbar spine were acquired. COMPARISON: [facility], CT, CT ABDOMEN PELVIS W CON, 06/12/2018, 10:24. FINDINGS: Bones: 5 [id number] vertebrae are present. There is abnormal bony alignment with grade 2 anterolisthesis of L4 on L5, with reference to the 06/12/18 CT scan sagittal reformatio imaging. An intervening operative procedure appears to have been performed with a posterior fixation device placed between the posterior elements of L4 on L5. Facet osteoarthritis from L2 inferiorly is moderately severe. Degenerative disc disease is unchanged, moderate in severity.. No vertebral body compression fractures. No suspicious bony lesions. Soft tissues: Overlying bowel gas pattern is normal. No suspicious soft tissue calcifications. IMPRESSION: Previously present degenerative disc disease and facet osteoarthritis along the lumbosacral spine is most pronounced at L45 and L5-S1, and there has been chronic anterolisthesis grade 2 of L4 on L5. This anterolisthesis remains but there has been an intervening posterior fixation device placed between the posterior elements at the L4-5 level exactly at the midline. Dictated by: Rodrigo Alejo M.D. on 10/22/2018 at 11:13 Approved by: Rodrigo Alejo M.D. on 10/22/2018 at 11:16
== END ==
PROVIDERS: Family Provider Internal Medicine; PCP Internal Medicine; Visit Provider Physician Assistant Medical
DX: M43.16 Spondylolisthesis, lumbar region (principal); M51.36 Other intervertebral disc degeneration, lumbar region; M51.37 Other intervertebral disc degeneration, lumbosacral region; M47.816 Spondylosis without myelopathy or radiculopathy, lumbar region; M47.817 Spondylosis without myelopathy or radiculopathy, lumbosacral region
CPT/HCPCS: 72100

== ENCOUNTER → 2020-02-02 07:46 | Outpatient (CLI) | payer MEDICARE, OTHER, SELFPAY ==
[2020-02-02 08:30] LABS: Add Manual Diff / Slide Review NO; Basophils Absolute Auto 0 /uL (0-100); Basophils Percent Auto 0.6 % (0-2); Eosinophils Absolute Auto 100 /uL (0-450); Eosinophils Percent Auto 1.6 % (2-4); Hematocrit 38.5 % (36-46); Hemoglobin 13.2 g/dL (12.0-16.0); Lymphocytes Absolute Auto 1900 /uL (1100-4500); Lymphocytes Percent Auto 36.2 % (25-40); Mean Corpuscular HGB Conc 34.3 % (30-36); Mean Corpuscular Volume 90.4 fL (80-100); Monocytes Absolute Auto 400 /uL (0-900); Neutrophils Absolute Auto 2800 /uL (1500-7000); Neutrophils Percent Auto 54.6 % (50-75); Platelet Count 215 X10^3/uL (150-400); Red Blood Cell Count 4.26 X10^6/uL (4.0-5.2); Red Cell Distribution Width 12.1 % (11.6-14.8); White Blood Cell Count 5.2 X10^3/uL (4.5-11.0)
[2020-02-02 08:45] LABS: Alanine Aminotransferase 24 IU/L (<35); Albumin 4.5 g/dL (3.5-5.0); Albumin Globulin Ratio 1.5 (1.0-2.8); Alkaline Phosphatase 82 U/L (38-126); Aspartate Aminotransferase 31 IU/L (14-36); BUN Creatinine Ratio 26.6 (6-22); Bilirubin Total 0.5 mg/dL (0.2-1.3); Blood Urea Nitrogen 21 mg/dL (7-17); Calcium 9.9 mg/dL (8.4-10.2); Carbon Dioxide 33 mmol/L (22-32); Chloride 105 mmol/L (98-107); Cholesterol 242 mg/dL (140-199); Estimated Glomerular Filt Rate > 60.0 mL/min (>60); Glucose 106 mg/dL (80-110); HDL Cholesterol 47 mg/dL (40-60); HEMOLYSIS < 15 (0-50); LDL Cholesterol Calculated 155 mg/dL (<100); Potassium 4.5 mmol/L (3.4-5.1); Sodium 139 mmol/L (137-145); Total Protein 7.5 g/dL (6.3-8.2); Triglycerides 202 mg/dL (35-150); Uric Acid 5.5 mg/dL (2.5-6.2)
[2020-02-02 09:39] LABS: TSH w/ Reflex to FT4 1.12 uIU/mL (0.47-4.68)
== END ==
PROVIDERS: Family Provider Internal Medicine; PCP Internal Medicine; Referring Provider Internal Medicine; Visit Provider Internal Medicine
DX: E78.2 Mixed hyperlipidemia (principal); I10 Essential (primary) hypertension; E03.9 Hypothyroidism, unspecified; R53.83 Other fatigue; D69.6 Thrombocytopenia, unspecified; M10.9 Gout, unspecified
CPT/HCPCS: 80053; 80061; 84443; 84550; 85025

== ENCOUNTER → 2020-03-02 16:03 | Outpatient (CLI) | payer MEDICARE, OTHER, SELFPAY ==
[2020-03-02 16:47] LABS: Influenza A - CEPHEID Flu A NEGATIVE (NEGATIVE); Influenza B - CEPHEID Flu B NEGATIVE (NEGATIVE)
== END ==
PROVIDERS: Family Provider Internal Medicine; PCP Internal Medicine; Visit Provider Physician Assistant
DX: R05 Cough (principal)
CPT/HCPCS: 87502

== ENCOUNTER → 2020-03-02 16:25 | Outpatient (CLI) | payer MEDICARE, OTHER, SELFPAY ==
--- NOTE | 2020-03-02 16:28 | DI.RAD.S_ITS ---
PROCEDURE: XR CHEST 2V INDICATIONS: COUGH TECHNIQUE: 2 views of the chest were acquired. COMPARISON: [facility], , CHEST 2 VIEW, 11/16/2016, 9:20. FINDINGS: Surgical changes and devices: None. Lungs and pleura: Lungs are clear. No pleural effusions or pneumothorax. Mediastinum: Mediastinal contours are normal. Heart size is normal. Bones and chest wall: No suspicious bony abnormalities. Soft tissues appear unremarkable. IMPRESSION: No acute cardiopulmonary pathology. Dictated by: Gordon Dobbins M.D. on 03/02/2020 at 17:02 Approved by: Gordon Dobbins M.D. on 03/02/2020 at 17:03
== END ==
PROVIDERS: Family Provider Internal Medicine; PCP Internal Medicine; Referring Provider Physician Assistant; Visit Provider Physician Assistant
DX: R05 Cough (principal)
CPT/HCPCS: 71046; 87502

== ENCOUNTER → 2020-03-23 08:35 | Outpatient (CLI) | payer MEDICARE, OTHER, SELFPAY ==
[2020-03-23 10:58] LABS: COVID19 -Nasal RAPID Negative (Negative)
== END ==
PROVIDERS: Family Provider Internal Medicine; PCP Internal Medicine; Visit Provider Nurse Practitioner
DX: Z01.812 Encounter for preprocedural laboratory examination (principal); Z20.822 Contact with and (suspected) exposure to COVID-19
CPT/HCPCS: 87635; C9803

== ENCOUNTER 2020-03-24 06:13 | Day surgery (SDC) | payer MEDICARE, OTHER, SELFPAY ==
[2020-03-22 08:03] VITALS: BMI 31.4
[2020-03-24] VITALS (8 sets, daily range): BP systolic 118–149; BP diastolic 60–79; PULSE 76–91; RESP 12–16; TEMP 36.2–36.7; O2SAT 96–98; BMI 31.4
[2020-03-24] MEDS: LACTATED RINGERS 1,000 ML 42 ML IV (07:21)
--- NOTE | 2020-03-24 07:44 | PM.PREOP ---
Pre-operative Note COVID-19 COVID-19 status: Negative Result date/Date tested (Pos, Neg/Pending): 03/22/20 Interval Note History & Physical reviewed/Exam performed by Physician: Yes Changes to H&P: No
[2020-03-24] MEDS: CLINDAMYCIN 600 MG/50 ML PIGGYBACK 50 MG IV (07:45)
--- NOTE | 2020-03-24 08:11 | SUR.OPER ---
Supine on padded OR bed, head on pillow,LEFT arm secured on padded arm boards at <90 degrees abduction, legs uncrossed, safety belt at thigh, tape over blanket over lower legs. RIGHT ARM TO HAND TABLE.
[2020-03-24] MEDS: BUPIVACAINE 0.5% W/ EPI (PF) 30 ML VIAL INJ (08:22)
--- NOTE | 2020-03-24 09:09 | PM.OP.1 ---
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 Complete loss of cartilage. No sign of any injury to the collateral ligaments. Closure Type: primary Specimen(s): none sent Applied: implant(s) (Pyrocarbon MCP joint implant) Estimated Blood Loss (mL): 0 Blood products transfused: none Tourniquet time (min): 49 Procedure in detail: On date of service, patient Was met in the holding area where the operative site was signed and witnessed by the OR staff. All of her questions and concerns were answered to her full satisfaction. Surgery is once again discussed with the patient in remaining questions were answered fully. Patient was taken back to the operating theater was placed on the operating table in a supine position. Time-out was performed verifying patient's name procedure and operative site. Great care was taken to ensure all bony prominences were appropriately padded. Right arm was prepped and draped in normal sterile fashion. Esmarch was used to exsanguinate the limb and the tourniquet was turned up to 250 mm of mercury. Dorsal incision was made to approach the MCP joint. Fifteen blade was used to incise the skin and fascial tissue. Sharp dissection was continued until the extensor mechanism was visualized. Using the deep knife, the extensor mechanism was split down the midline. This gave us good visualization of the MCP joint. Sharp dissection was continued removing the dorsal capsule exposing the MCP joint. Rongeur was used to remove any bony osteophytes or loose bodies. And the joint was then copiously irrigated. Starting awl was used to get a bony tunnel into the proximal phalanx. Alignment guide was used to verify alignment and then the cutting guide was used to make our proximal cut. This was followed by broaching where the mini C-arm was used to verify the overall alignment of the broach. Proximal phalanx broached to a size 20. We then turned our attention to the distal aspect of the joint. Process was repeated using the starting awl followed by the alignment guide and broaching. A bur was used to remove any remaining cartilage and to smooth out the distal joint surface. This was then copiously irrigated. The distal MCP joint broached to a size 20 as well. Trial implants were placed in the finger was taken through range of motion. It was felt that the 20 provided good stability in full extension as well as flexion as well as through the entire arc range of motion. Next the final implants were impacted into place and C-arm was used to verify positioning and stability. Finger was taken through range of motion once again in the MCP joint felt to be stable with the appropriate joint gapping at full extension as well as flexion. The wound was then copiously irrigated and closed in layered fashion. The joint capsule was closed followed by the split in the extensor mechanism. The skin was closed with nylon. The hand was cleaned, dried, dressed and patient was taken to the PACU in stable condition. Complications: none Post-operative Condition: stable Disposition: PACU Plan for aftercare: Patient be in a splint for the next few days. Patient will follow-up with the hand therapist will make them a removable brace protecting the MCP joint of the right index finger.
[2020-03-24] MEDS: OXYCODONE IR 5 MG TABLET PO (09:33)
--- NOTE | 2020-03-24 10:20 | SUR.PHASEII ---
Iv dcd by juan david Quintanilla, pt in stable condition dressed herself and out via [facility] verbalizing understands all dc instructions and will get rxs filled, to curbside by juan david Quintanilla.
== END 2020-03-24 10:17 | disposition home or self-care (01) ==
PROVIDERS: Family Provider Internal Medicine; PCP Internal Medicine; Referring Provider Internal Medicine; Visit Provider Orthopaedic Surgery
PROC: (CPT 26535; principal; 2020-03-24 07:45)
DX: M19.041 Primary osteoarthritis, right hand (principal); E03.9 Hypothyroidism, unspecified; I10 Essential (primary) hypertension; M79.7 Fibromyalgia; F32.9 Major depressive disorder, single episode, unspecified
CPT/HCPCS: 26531; J1100; J2250; J2405; J2704; J3010

== ENCOUNTER 2020-08-05 08:56 | Emergency (ER) | payer MEDICARE, OTHER, SELFPAY ==
[2020-08-05 09:10] VITALS: BP 163/73; PULSE 71; RESP 16
[2020-08-05 09:16] VITALS: BP 163/73; PULSE 74; RESP 16; TEMP 37.2; O2SAT 98; BMI 30.4
[2020-08-05 09:30] VITALS: PULSE 73; O2SAT 96
--- NOTE | 2020-08-05 09:40 | ED.ABDPAIN ---
HPI - Abdominal Pain General Chief Complaint: Abdominal Pain Stated Complaint: pain on left side Time Seen by Provider: 08/05/20 09:37 Source: patient Mode of arrival: Ambulatory Limitations: no limitations History of Present Illness HPI narrative: Patient is a 79-year-old female who has ongoing left hip issues presenting today with worsening pain and left lower quadrant pain. She says her hip has been hurting but now she is having some left lower quadrant pain it seems to be radiating from to the the back to the front. No prior history of kidney stones. She denies any nausea or vomiting. She does not need anything for pain. No fever. MD complaint: abdominal pain Onset (ago): hour(s) Location: LLQ Severity: mild Quality: cramping Related Data Home Medications Medication Instructions Recorded Confirmed levothyroxine [Synthroid] 0.075 mg PO QDAY #0 09/29/11 03/24/20 Previous Rx's Medication Instructions Recorded hydrocodone-acetaminophen [[place]] 2 tab PO Q4-6H PRN #40 tab 03/24/20 hydroxyzine pamoate [Vistaril] 25 mg PO TID-QID PRN #60 cap 03/24/20 Allergies Allergy/AdvReac Type Severity Reaction Status Date / Time codeine [CODEINE] Allergy Severe CHANGE IN Verified 03/24/20 07:26 BEHAVIOR latex [LATEX] Allergy Severe FEVER Verified 03/24/20 07:26 BLISTERS penicillin V [PENICILLIN V] Allergy Severe ANAPHYLAXIS Verified 03/24/20 07:26 hydroxychloroquine Allergy Intermediate Verified 03/24/20 07:26 [HYDROXYCHLOROQUINE] simvastatin [From ZOCOR] Allergy Intermediate Verified 03/24/20 07:26 venlafaxine [VENLAFAXINE] Allergy Intermediate Verified 03/24/20 07:26 Metal Allergy Severe Rash/Hives/ Uncoded 03/24/20 07:26 Itching Review of Systems Review of Systems Narrative: GENERAL: Denies chills, fatigue, malaise, fever, sweats, travel HEENT: Denies sinus pain, ear pain, sore throat, difficulty swallowing, neck pain RESPIRATORY: Denies dyspnea, cough, wheezing, hemoptysis, sputum. CARDIOVASCULAR: Denies chest pain, palpitations, orthopnea, edema GASTROINTESTINAL: See HPI : Denies dysuria, frequency, incontinence, hematuria, urinary retention, flank pain. MUSCULOSKELETAL: Chronic left hip pain SKIN: No rash, no erythema, no pruritus NEUROLOGIC: Denies weakness, dizziness, headache, numbness, change in speech, confusion PSYCHIATRIC: No concerning psychosocial issues. 12 point review of systems is negative except for those stated above and HPI Patient History Medical History Arthritis Easy bruisability Hypothyroid No active medical problems Surgical History H/O: knee surgery Hx of bilateral cataract extraction Hx of cholecystectomy Social History household members: spouse Smoking Status: Former smoker alcohol intake: current substance use type: does not use Smoking Status: Former smoker alcohol intake frequency: holidays/special occasions only Substance Use Type: does not use Exam Initial Vital Signs Initial Vital Signs: Vital Signs Pulse Rate 71 08/05/20 09:10 Respiratory Rate 16 08/05/20 09:10 Blood Pressure 163/73 H 08/05/20 09:10 GENERAL: Alert well-appearing 79-year-old female and in no acute distress. HEENT: Head atraumatic,EOMI, pupils reactive, face symmetric, moist mucous membranes CARDIOVASCULAR: Regular rate and rhythm without murmurs, rubs or gallops. RESPIRATORY: Breath sounds equal bilaterally, no wheezes rales or rhonchi. ABDOMEN: Soft, mild left lower quadrant pain no guarding or rebound, she is noted to have scar of from umbilical region to pubic region no herniation felt mild left-sided tenderness EXTREMITIES: Normal range of motion, no clubbing or edema. Neurovascularly intact Left hip no pain with internal or external rotation NEUROLOGICAL: Alert and oriented x4.Normal gait and speech. Cranial nerves II through XII grossly intact. SKIN: Warm, dry, no laceration, no petechiae, no rashes or lesions. Course Orders Ordered: ED Orders 08/05/20 10:50 CT abdomen pelvis w con Stat Vital Signs Vital signs: Vital Signs - 8 hr 08/05/20 13:15 Temperature 98.2 F Pulse Rate 96 H Respiratory Rate 16 Blood Pressure 173/82 H Pulse Oximetry 98 MDM - Abdominal Pain Lab Data Attestation: I reviewed the patient's lab results. Result diagrams: 08/05/20 09:30 05/21/21 09:30 Labs: Lab Results 08/05/20 08/05/20 Range/Units 09:30 09:30 WBC 4.8 (4.5-11.0) X10^3/uL RBC 4.21 (4.0-5.2) X10^6/uL Hgb 13.0 (12.0-16.0) g/dL Hct 37.9 (36-46) % MCV 90.1 (80-100) fL MCH 30.8 (26-34) PG MCHC 34.2 (30-36) % RDW 12.1 (11.6-14.8) % Plt Count 217 (150-400) X10^3/uL Neut % (Auto) 54.1 (50-75) % Lymph % (Auto) 37.7 (25-40) % [place] % (Auto) 5.7 (3-14) % Eos % (Auto) 1.8 L (2-4) % Baso % (Auto) 0.7 (0-2) % Neut # (Auto) 2600 (1087-8749) /uL Lymph # (Auto) 1800 (6874-5202) /uL [place] # (Auto) 300 (0-900) /uL Eos # (Auto) 100 (0-450) /uL Baso # (Auto) 0 (0-100) /uL Sodium 137 (137-145) mmol/L Potassium 4.1 (3.4-5.1) mmol/L Chloride 103 (98-107) mmol/L Carbon Dioxide 28 (22-32) mmol/L BUN 13 (7-17) mg/dL Creatinine 0.77 (0.52-1.04) mg/dL Estimated GFR > 60.0 (>60) mL/min BUN/Creatinine Ratio 16.9 (6-22) Glucose 98 (80-110) mg/dL Calcium 9.9 (8.4-10.2) mg/dL Total Bilirubin 0.7 (0.2-1.3) mg/dL AST 32 (14-36) IU/L ALT 18 (<35) IU/L Alkaline Phosphatase 76 (38-126) U/L Total Protein 7.2 (6.3-8.2) g/dL Albumin 4.2 (3.5-5.0) g/dL Globulin 3.0 (1.7-4.1) g/dL Albumin/Globulin Ratio 1.4 (1.0-2.8) Lipase 86 (23-300) U/L Point of care testing: Urine Dip Bedside Urine Glucose Negative Bedside Urine Bilirubin - Negative Bedside Urine Ketone - Negative Urine Specific [place] 1.020 Bedside Urine Occult Blood - Negative Bedside Urine pH 6.0 Bedside Urine Protein - Negative Bedside Urine Urobilinogen +/- 1mg Bedside Urine Nitrite - Negative Bedside Urine Leukocytes - Negative Esterase Imaging Data CT scan - abdomen/pelvis: Radiologist's Impression: PROCEDURE: CT ABDOMEN PELVIS W CON INDICATIONS: left lower quadrant pain TECHNIQUE: After the administration of intravenous contrast, 5 mm thick sections acquired from the diaphragm to the symphysis. 5 mm coronal and sagittal reformats were acquired. For radiation dose reduction, the following was used: automated exposure control, adjustment of mA and/or kV according to patient size. COMPARISON: Merged With [facility], CT, CT ABDOMEN PELVIS W CON, 06/12/2018, 10:24. FINDINGS: Image quality: Excellent. ABDOMEN: Lung bases: There is a right lower lobe ground-glass nodule on series 3, image 3 measuring up to 7 mm which appears stable in size compared to the prior study. A medial subpleural nodule within the right lower lobe on the same image measuring up to 4 mm also appears stable in size. Laterally, there is a pleural-based nodule on series 3, image 6 measuring up to 7 mm also appears stable. In the inferior right middle lobe, there is a subpleural 3 mm nodule on series 3, image 8 which is also stable. Mild subpleural scarring is demonstrated medially in the lung bases. Heart size is normal. Solid organs: Evaluation of the liver demonstrates no focal hepatic lesions. The gallbladder is surgically absent. Biliary system is non-dilated. Pancreas enhances normally. No peripancreatic fat stranding or fluid collections. No pancreatic duct dilatation. The spleen is normal in size. No adrenal nodules. Kidneys demonstrate no hydronephrosis. Peritoneum and bowel: Small bowel loops demonstrate normal wall thickness and caliber. The appendix is normal in appearance. There is colonic diverticulosis without acute diverticulitis. A short segment of mild wall thickening is demonstrated within the sigmoid colon suggestive of a mild colitis. No free fluid or air. Nodes and vessels: No retroperitoneal or mesenteric adenopathy by size criteria. Aorta and inferior vena cava are normal in size. Miscellaneous: There is a small fat-containing periumbilical ventral abdominal hernia. More inferiorly, a small ventral hernia is demonstrated containing a partially herniated segment of small bowel. The hernia defect measures up to 2.7 cm in transverse dimension by 1.5 cm in craniocaudal dimension. PELVIS: Genitourinary: Bladder wall thickness is normal. Miscellaneous: No inguinal hernias or adenopathy. Bones: No suspicious bony lesions. There is grade 1 anterolisthesis of L4 on L5. A posterior spacer device is demonstrated between the spinous processes of L4 and L5. No vertebral body compression fractures. IMPRESSION: 1. Short segment of mild colonic wall thickening in the sigmoid colon suggestive of a mild colitis. Colonic diverticulosis is present without acute diverticulitis. 2. Stable small pulmonary nodules in the lung bases. Recommend continued follow-up of a 7 mm ground-glass nodule in the right lower lobe in 12 months to demonstrate stability as a slow growing variant of adenocarcinoma cannot be excluded. 3. Small ventral abdominal hernia in the lower abdomen with partial herniation of a small bowel loop. No evidence of associated bowel obstruction or strangulation. Dictated by: Ronnie Arias M.D. on 08/05/2020 at 11:07 MDM Narrative Medical decision making narrative: Patient is reassessed she actually is quite tender midline possibly by her hernia. Although she also has mild colitis on her CT. Difficult to tell which 1 of these or both of them are causing pain. [id number]-Dr. Anderson called and notified of CT finding currently in the ED to see and evaluate patient at this time unlikely hernia causing pain. More likely colitis. Patient is afebrile without leukocytosis will treat conservatively without antibiotics at this time. Discharge Plan Departure Patient Disposition: Home Clinical Impression: Colitis Instructions: DI for Colitis Activity Restrictions/Additional Instructions: *You have been diagnosed with colitis *What to do: At this time you have inflammation of your colon likely causing her pain. He also have a small hernia which is not causing pain at this time. Recommend no antibiotics at this time. If your symptoms should worsen it you will require antibiotic *Continue to take medications as directed Tylenol 650 mg every 4-6 hours if needed for [id number] pain *Follow up with your primary care provider in 2-3 days *Return to ER if you should have increasing pain, fever, bloody stools, persistent vomiting or any new, worsening or concerning symptoms Prescriptions: No Action levothyroxine [Synthroid] 75 MCG tablet 0.075 mg PO QDAY Qty: 0 RF: 0 hydrocodone-acetaminophen [[place]] 5-325 mg tablet 2 tab PO Q4-6H PRN (Reason: pain) Qty: 40 RF: 0 hydroxyzine pamoate [Vistaril] 25 mg capsule 25 mg PO TID-QID PRN (Reason: spasms) Qty: 60 RF: 0
[2020-08-05 09:48] LABS: Add Manual Diff / Slide Review NO; Basophils Absolute Auto 0 /uL (0-100); Basophils Percent Auto 0.7 % (0-2); Eosinophils Absolute Auto 100 /uL (0-450); Eosinophils Percent Auto 1.8 % (2-4); Hematocrit 37.9 % (36-46); Lymphocytes Absolute Auto 1800 /uL (1100-4500); Lymphocytes Percent Auto 37.7 % (25-40); Mean Corpuscular HGB Conc 34.2 % (30-36); Mean Corpuscular Hemoglobin 30.8 PG (26-34); Mean Corpuscular Volume 90.1 fL (80-100); Monocytes Absolute Auto 300 /uL (0-900); Monocytes Percent Auto 5.7 % (3-14); Neutrophils Absolute Auto 2600 /uL (1500-7000); Neutrophils Percent Auto 54.1 % (50-75); Platelet Count 217 X10^3/uL (150-400); Red Blood Cell Count 4.21 X10^6/uL (4.0-5.2); Red Cell Distribution Width 12.1 % (11.6-14.8); White Blood Cell Count 4.8 X10^3/uL (4.5-11.0)
[2020-08-05 09:53] LABS: Alanine Aminotransferase 18 IU/L (<35); Albumin 4.2 g/dL (3.5-5.0); Albumin Globulin Ratio 1.4 (1.0-2.8); Alkaline Phosphatase 76 U/L (38-126); Aspartate Aminotransferase 32 IU/L (14-36); BUN Creatinine Ratio 16.9 (6-22); Bilirubin Total 0.7 mg/dL (0.2-1.3); Blood Urea Nitrogen 13 mg/dL (7-17); Calcium 9.9 mg/dL (8.4-10.2); Carbon Dioxide 28 mmol/L (22-32); Chloride 103 mmol/L (98-107); Estimated Glomerular Filt Rate > 60.0 mL/min (>60); Glucose 98 mg/dL (80-110); HEMOLYSIS < 15 (0-50); Lipase 86 U/L (23-300); Potassium 4.1 mmol/L (3.4-5.1); Sodium 137 mmol/L (137-145); Total Protein 7.2 g/dL (6.3-8.2)
[2020-08-05 10:39] VITALS: BP 163/73
--- NOTE | 2020-08-05 10:50 | DI.CT.S_ITS ---
PROCEDURE: CT ABDOMEN PELVIS W CON INDICATIONS: left lower quadrant pain TECHNIQUE: After the administration of intravenous contrast, 5 mm thick sections acquired from the diaphragm to the symphysis. 5 mm coronal and sagittal reformats were acquired. For radiation dose reduction, the following was used: automated exposure control, adjustment of mA and/or kV according to patient size. COMPARISON: [facility], CT, CT ABDOMEN PELVIS W CON, 06/12/2018, 10:24. FINDINGS: Image quality: Excellent. ABDOMEN: Lung bases: There is a right lower lobe ground-glass nodule on series 3, image 3 measuring up to 7 mm which appears stable in size compared to the prior study. A medial subpleural nodule within the right lower lobe on the same image measuring up to 4 mm also appears stable in size. Laterally, there is a pleural-based nodule on series 3, image 6 measuring up to 7 mm also appears stable. In the inferior right middle lobe, there is a subpleural 3 mm nodule on series 3, image 8 which is also stable. Mild subpleural scarring is demonstrated medially in the lung bases. Heart size is normal. Solid organs: Evaluation of the liver demonstrates no focal hepatic lesions. The gallbladder is surgically absent. Biliary system is non-dilated. Pancreas enhances normally. No peripancreatic fat stranding or fluid collections. No pancreatic duct dilatation. The spleen is normal in size. No adrenal nodules. Kidneys demonstrate no hydronephrosis. Peritoneum and bowel: Small bowel loops demonstrate normal wall thickness and caliber. The appendix is normal in appearance. There is colonic diverticulosis without acute diverticulitis. A short segment of mild wall thickening is demonstrated within the sigmoid colon suggestive of a mild colitis. No free fluid or air. Nodes and vessels: No retroperitoneal or mesenteric adenopathy by size criteria. Aorta and inferior vena cava are normal in size. Miscellaneous: There is a small fat-containing periumbilical ventral abdominal hernia. More inferiorly, a small ventral hernia is demonstrated containing a partially herniated segment of small bowel. The hernia defect measures up to 2.7 cm in transverse dimension by 1.5 cm in craniocaudal dimension. PELVIS: Genitourinary: Bladder wall thickness is normal. Miscellaneous: No inguinal hernias or adenopathy. Bones: No suspicious bony lesions. There is grade 1 anterolisthesis of L4 on L5. A posterior spacer device is demonstrated between the spinous processes of L4 and L5. No vertebral body compression fractures. IMPRESSION: 1. Short segment of mild colonic wall thickening in the sigmoid colon suggestive of a mild colitis. Colonic diverticulosis is present without acute diverticulitis. 2. Stable small pulmonary nodules in the lung bases. Recommend continued follow-up of a 7 mm ground-glass nodule in the right lower lobe in 12 months to demonstrate stability as a slow growing variant of adenocarcinoma cannot be excluded. 3. Small ventral abdominal hernia in the lower abdomen with partial herniation of a small bowel loop. No evidence of associated bowel obstruction or strangulation. Dictated by: Ronnie Arias M.D. on 08/05/2020 at 11:07 Approved by: Ronnie Arias M.D. on 08/05/2020 at 11:15
[2020-08-05 13:15] VITALS: BP 173/82; PULSE 96; RESP 16; TEMP 36.8; O2SAT 98
== END 2020-08-05 13:17 | disposition home or self-care (01) ==
PROVIDERS: Emergency Provider Emergency Medicine; Family Provider Internal Medicine
DX: K52.9 Noninfective gastroenteritis and colitis, unspecified (principal)
CPT/HCPCS: 36415; 74177; 80053; 81003; 83690; 85025; 99284

== ENCOUNTER 2020-10-26 10:30 | Outpatient (RCR) | payer MEDICARE, OTHER, SELFPAY ==
--- NOTE | 2020-10-24 16:30 | PT.OIE ---
Current Diagnoses Spondylolisthesis, lumbosacral region (10/24/20) Low back pain (10/24/20) Past Medical History (Last Reviewed 08/05/20 @ 09:42 by Minal Garcia DO) Arthritis Easy bruisability H/O: knee surgery Hx of bilateral cataract extraction Hx of cholecystectomy Hypothyroid No active medical problems Past Surgical History (Last Reviewed 08/05/20 @ 09:42 by Minal Garcia DO) H/O: knee surgery Hx of bilateral cataract extraction Hx of cholecystectomy Visit Care Team Role Provider Type Pia Buckley MD Attending Provider Non-Staff Primary Care Provider Referring Provider Specialty: Family Practice Address: [address] [place] [address], [place], [address] Email: Physical Therapy Initial Evaluation PT-OP-A Visit Information Start: 10/24/20 16:04 Freq: Status: Active Protocol: Document 10/24/20 10:30 DCW (Rec: 10/24/20 16:22 [facility] [id number]) Out-Patient Physical Therapy Visit Information Visit Information Visit Type Initial Evaluation Visit Start Time 10:30 Visit Stop Time 11:15 Total Visit Minutes 45 Visit Number 1 Number of C ENGINEER Visits 0 Evaluation Information Evaluation Date 10/24/20 PT-OP-B Current Condition Start: 10/24/20 16:04 Freq: Status: Active Protocol: Document 10/24/20 10:30 DCW (Rec: 10/24/20 16:22 [facility] [id number]) Current Condition History of Current Condition Onset Date Three months Current Complaints Left-sided low back pain History of Current Condition Pt is a 79 year old female presenting with a three month history of left-sided low back pain. Pt reports she had a colitis attack in July, was seen at the ER with low back pain that wrapped around her left side to the front. After treatment, everything calmed down, but pt notes that she continued to experience tightness through her left low back. Pt notes that she was previously treated at [facility] facility for right low back and hip pain, but was pretty much healed following a laminectomy. 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 Pt struggles currently when trying to vacuum or when bending over to pick things up. PT-OP-C Subjective Start: 10/24/20 16:04 Freq: Status: Active Protocol: Document 10/24/20 10:30 DCW (Rec: 10/24/20 16:22 [facility] [id number]) OP-PT Subjective Patient Comments Patient Comments I'm not too limited, it just hurts occasionally. Patient Questionnaires Oswestry Low Back Index Oswestry Score 21/50 = 42% Oswestry Impairment 40 to 59% Impaired (Score 40- 59) OP-PT Pain Assessment Pain Assessment Grid Paper Pain Assessment Grid Completed Yes Location Left Lower Back Intensity 5 Scale Used Numeric (0 - 10) PT-OP-F Manual Assessment Start: 10/24/20 16:04 Freq: Status: Active Protocol: Document 10/24/20 10:30 DCW (Rec: 10/24/20 16:22 DCW [id number]) Manual Assessments Soft Tissue Assessment Soft Tissue Mobility Assessment Moderate tone along left QL, Erector spinae, left psoas Joint Mobility Assessment Joint Mobility Assessment Mild hypomobility of lumbar vertebrae PT-OP-K Range of Motion Start: 10/24/20 16:04 Freq: Status: Active Protocol: Document 10/24/20 10:30 DCW (Rec: 10/24/20 16:22 [facility] [id number]) Lumbar Spine Range of Motion Lumbar Spine Active Degrees Testing Position Standing Flexion 25 Extension 10 Lateral Flexion Left 60 Lateral Flexion Right 55 ROM Limitations Soft Tissue Tightness,Muscle Tone Comments Lateral flexion measured in cm from finger tips to floor Pain at end-range of lateral flexion bilaterally PT-OP-L Special Tests Start: 10/24/20 16:04 Freq: Status: Active Protocol: Document 10/24/20 10:30 DCW (Rec: 10/24/20 16:22 DCW [id number]) Special Tests Lumbar Spine Special Tests ALVARO Test Results Negative Straight Leg Raise Test Results Positive Left - Ipsilateral Slump Test Results Negative Manual Traction Test Results Negative Compression Test Results Negative A-P Shearing Test Results Negative PT-OP-Q Treatments Start: 10/24/20 16:04 Freq: Status: Active Protocol: Document 10/24/20 10:30 DCW (Rec: 10/24/20 16:22 DCW [id number]) Therapeutic Exercises Sitting Exercises 2 Sitting Exercise Name Lumbar lateral flexion Side bilateral 1 Sitting Exercise Name Seated lumbar flexion Side bilateral PT-OP-T Assessment and Plan Start: 10/24/20 16:04 Freq: Status: Active Protocol: Document 10/24/20 10:30 DCW (Rec: 10/24/20 16:30 DCW [id number]) Physical Therapy Assessment Rehab Potential Rehabilitation Potential Excellent Evaluation Complexity Number of Personal Factors/Comorbidities 1-2 Number of Body Systems Impaired 1-2 Clinical Presentation at Evaluation Stable Impairments Impairments Functional Activities, Functional Mobility,Pain,ROM, Soft Tissue Mobility,Tone Goals Three Impairment Moderate tone in L QL, Erector spinae, and and psoas Foreign Exchange Position Clerk Goal (LTG) Pt to present with at worst mild tone in left QL, Erector spinae, and and psoas to reduce pain and improve mobility. LTG Duration 12/24/20 Two Impairment Limited Lumbar ROM limits ability to vacuum Care Home Goal (LTG) Pt to increase lateral flexion to at most 50 cm from floor to finger tips bilaterally to improve participation in home cleaning activities. LTG Duration 12/24/20 One Impairment Pt does not have an appropriate home exercise program Short Term Goal (STG) Pt to be independent and compliant with an appropriate HEP STG Duration 11/24/20 Assessment Summary Assessment Pt presents with signs and symptoms consisted with increased tone in left-sided lumbar musculature. Pt reports pain was originally associated with an episode of colitis three months ago, but has not gone away. All lumbar special testing largely negative, pt not very restricted with activity. Pt will likely do pretty well with skilled therapy focusing on increasing flexibility, decreasing muscle tone, and general strengthening. Pt will likely be able to transition pretty quickly to independent home program. Physical Therapy Plan Frequency and Duration Frequency of Treatment 2x/Week Duration of Treatment Two months Plan of Care Start Date 10/24/20 Plan of Care End Date 12/24/20 Therapeutic Interventions Therapeutic Interventions Home Exercise Program,Joint Mobilizations,Manual Therapy, Patient/Caregiver Education, Self-Care/Home Management,Soft Tissue Mobilization, Therapeutic Activities, Therapeutic Exercises Modalities Cold Pack/Ice Massage,Electric Stimulation,Hot Packs, Ultrasound Next Visit Focus/Plan Next Note Type Treatment Note Next Visit Plan STM, Flexibility, core strengthening
--- NOTE | 2020-10-24 16:31 | PT.OPPOC ---
Physical, Occupational & Speech Therapy At [facility] Current Diagnoses Spondylolisthesis, lumbosacral region (10/24/20) Low back pain (10/24/20) Visit Care Team Role Provider Type Pia Buckley MD Attending Provider Non-Staff Primary Care Provider Referring Provider Specialty: Family Practice Address: [address] [place] [address], [place], [address] Email: Plan Of Care PT-OP-T Assessment and Plan Start: 10/24/20 16:04 Freq: Status: Active Protocol: Document 10/24/20 10:30 DCW (Rec: 10/24/20 16:30 DCW [id number]) Physical Therapy Assessment Rehab Potential Rehabilitation Potential Excellent Evaluation Complexity Number of Personal Factors/Comorbidities 1-2 Number of Body Systems Impaired 1-2 Clinical Presentation at Evaluation Stable Impairments Impairments Functional Activities, Functional Mobility,Pain,ROM, Soft Tissue Mobility,Tone Goals Three Impairment Moderate tone in L QL, Erector spinae, and and psoas Long-Term Goal (LTG) Pt to present with at worst mild tone in left QL, Erector spinae, and and psoas to reduce pain and improve mobility. LTG Duration 12/24/20 Two Impairment Limited Lumbar ROM limits ability to vacuum Farm Mortgage Agent Goal (LTG) Pt to increase lateral flexion to at most 50 cm from floor to finger tips bilaterally to improve participation in home cleaning activities. LTG Duration 12/24/20 One Impairment Pt does not have an appropriate home exercise program Short Term Goal (STG) Pt to be independent and compliant with an appropriate HEP STG Duration 11/24/20 Assessment Summary Assessment Pt presents with signs and symptoms consisted with increased tone in left-sided lumbar musculature. Pt reports pain was originally associated with an episode of colitis three months ago, but has not gone away. All lumbar special testing largely negative, pt not very restricted with activity. Pt will likely do pretty well with skilled therapy focusing on increasing flexibility, decreasing muscle tone, and general strengthening. Pt will likely be able to transition pretty quickly to independent home program. Physical Therapy Plan Frequency and Duration Frequency of Treatment 2x/Week Duration of Treatment Two months Plan of Care Start Date 10/24/20 Plan of Care End Date 12/24/20 Therapeutic Interventions Therapeutic Interventions Home Exercise Program,Joint Mobilizations,Manual Therapy, Patient/Caregiver Education, Self-Care/Home Management,Soft Tissue Mobilization, Therapeutic Activities, Therapeutic Exercises Modalities Cold Pack/Ice Massage,Electric Stimulation,Hot Packs, Ultrasound Next Visit Focus/Plan Next Note Type Treatment Note Next Visit Plan STM, Flexibility, core strengthening Plan of Care Dates Plan of Care Start Date 10/24/20 Plan of Care End Date 12/24/20 Electronically Signed by: Jesse Holbrook, PT 10/24/20 [id number] Please Sign and Return: I have reviewed this Plan of Care and certify that the skilled therapy services above are required to meet the patient?s needs. Physician Signature Date Printed Name and Credentials Clinical Instructor Signature Printed Name and Credentials
--- NOTE | 2020-10-26 11:13 | PT.OTN ---
Current Diagnoses Spondylolisthesis, lumbosacral region (10/26/20) Low back pain (10/26/20) Physical Therapy Treatment Note PT-OP-A Visit Information Start: 10/24/20 16:04 Freq: Status: Active Protocol: Document 10/26/20 10:30 DCW (Rec: 10/26/20 11:13 DCW [id number]) Out-Patient Physical Therapy Visit Information Visit Information Visit Type Treatment Note Visit Start Time 10:30 Visit Stop Time 11:15 Total Visit Minutes 45 Visit Number 2 Number of RN MENTAL HEALTH Visits 0 Evaluation Information Evaluation Date 10/24/20 PT-OP-B Current Condition Start: 10/24/20 16:04 Freq: Status: Active Protocol: Document 10/24/20 10:30 DCW (Rec: 10/24/20 16:22 DCW [id number]) Current Condition History of Current Condition Onset Date Three months Current Complaints Left-sided low back pain History of Current Condition Pt is a 79 year old female presenting with a three month history of left-sided low back pain. Pt reports she had a colitis attack in July, was seen at the ER with low back pain that wrapped around her left side to the front. After treatment, everything calmed down, but pt notes that she continued to experience tightness through her left low back. Pt notes that she was previously treated at [facility] facility for right low back and hip pain, but was pretty much healed following a laminectomy. 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 Pt struggles currently when trying to vacuum or when bending over to pick things up. PT-OP-C Subjective Start: 10/24/20 16:04 Freq: Status: Active Protocol: Document 10/26/20 10:30 DCW (Rec: 10/26/20 11:13 DCW [id number]) OP-PT Subjective Patient Comments Patient Comments I did really well until this morning getting into my car, there was a little bit of pain , but nothing too bad. PT-OP-F Manual Assessment Start: 10/24/20 16:04 Freq: Status: Active Protocol: Document 10/24/20 10:30 DCW (Rec: 10/24/20 16:22 DCW [id number]) Manual Assessments Soft Tissue Assessment Soft Tissue Mobility Assessment Moderate tone along left QL, Erector spinae, left psoas Joint Mobility Assessment Joint Mobility Assessment Mild hypomobility of lumbar vertebrae PT-OP-K Range of Motion Start: 10/24/20 16:04 Freq: Status: Active Protocol: Document 10/24/20 10:30 DCW (Rec: 10/24/20 16:22 DCW [id number]) Lumbar Spine Range of Motion Lumbar Spine Active Degrees Testing Position Standing Flexion 25 Extension 10 Lateral Flexion Left 60 Lateral Flexion Right 55 ROM Limitations Soft Tissue Tightness,Muscle Tone Comments Lateral flexion measured in cm from finger tips to floor Pain at end-range of lateral flexion bilaterally PT-OP-L Special Tests Start: 10/24/20 16:04 Freq: Status: Active Protocol: Document 10/24/20 10:30 DCW (Rec: 10/24/20 16:22 DCW [id number]) Special Tests Lumbar Spine Special Tests ALVARO Test Results Negative Straight Leg Raise Test Results Positive Left - Ipsilateral Slump Test Results Negative Manual Traction Test Results Negative Compression Test Results Negative A-P Shearing Test Results Negative PT-OP-Q Treatments Start: 10/24/20 16:04 Freq: Status: Active Protocol: Document 10/26/20 10:30 DCW (Rec: 10/26/20 11:13 DCW [id number]) Therapeutic Exercises Sitting Exercises 2 Sitting Exercise Name Lumbar lateral flexion Side bilateral 1 Sitting Exercise Name Seated lumbar flexion Side bilateral Manual Therapy Treatment Soft Tissue Mobilization 1 Body Location R QL, Paraspinals, Piriformis Mobilization Type Strumming,Sustained Pressure, Trigger Point Release Joint Mobilizations 1 Joint L1-5 vertebrae Direction P->A Grade III Body Position Sidelying PT-OP-T Assessment and Plan Start: 10/24/20 16:04 Freq: Status: Active Protocol: Document 10/26/20 10:30 DCW (Rec: 10/26/20 11:13 DCW [id number]) Physical Therapy Assessment Impairments Impairments Functional Activities, Functional Mobility,Pain,ROM, Soft Tissue Mobility,Tone Goals Three Impairment Moderate tone in L QL, Erector spinae, and and psoas Plaster Patternmaker Goal (LTG) Pt to present with at worst mild tone in left QL, Erector spinae, and and psoas to reduce pain and improve mobility. LTG Duration 12/24/20 Two Impairment Limited Lumbar ROM limits ability to vacuum Fci Goal (LTG) Pt to increase lateral flexion to at most 50 cm from floor to finger tips bilaterally to improve participation in home cleaning activities. LTG Duration 12/24/20 One Impairment Pt does not have an appropriate home exercise program Short Term Goal (STG) Pt to be independent and compliant with an appropriate HEP STG Duration 11/24/20 Assessment Summary Assessment Pt tolerated treatment well today, appears to already be making great progress overall. Physical Therapy Plan Frequency and Duration Frequency of Treatment 2x/Week Duration of Treatment Two months Plan of Care Start Date 10/24/20 Plan of Care End Date 12/24/20 Therapeutic Interventions Therapeutic Interventions Home Exercise Program,Joint Mobilizations,Manual Therapy, Patient/Caregiver Education, Self-Care/Home Management,Soft Tissue Mobilization, Therapeutic Activities, Therapeutic Exercises Modalities Cold Pack/Ice Massage,Electric Stimulation,Hot Packs, Ultrasound Next Visit Focus/Plan Next Note Type Treatment Note Next Visit Plan STM, Flexibility, core strengthening
--- NOTE | 2021-05-18 10:28 | PT.OPDS ---
Current Diagnoses Spondylolisthesis, lumbosacral region (10/26/20) Low back pain (10/26/20) Visit Care Team Role Provider Type Pia Buckley MD Attending Provider Non-Staff Primary Care Provider Referring Provider Specialty: Family Practice Address: [address] , [place], [address] Email: Visit Number Visit Number 2 Discharge Summary PT-OP-B Current Condition Start: 10/24/20 16:04 Freq: Status: Active Protocol: Document 10/24/20 10:30 DCW (Rec: 10/24/20 16:22 DCW [id number]) Current Condition History of Current Condition Onset Date Three months Current Complaints Left-sided low back pain History of Current Condition Pt is a 79 year old female presenting with a three month history of left-sided low back pain. Pt reports she had a colitis attack in July, was seen at the ER with low back pain that wrapped around her left side to the front. After treatment, everything calmed down, but pt notes that she continued to experience tightness through her left low back. Pt notes that she was previously treated at [facility] facility for right low back and hip pain, but was pretty much healed following a laminectomy. 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 Pt struggles currently when trying to vacuum or when bending over to pick things up. PT-OP-C Subjective Start: 10/24/20 16:04 Freq: Status: Active Protocol: Document 10/26/20 10:30 DCW (Rec: 10/26/20 11:13 DCW [id number]) OP-PT Subjective Patient Comments Patient Comments I did really well until this morning getting into my car, there was a little bit of pain , but nothing too bad. PT-OP-F Manual Assessment Start: 10/24/20 16:04 Freq: Status: Active Protocol: Document 10/24/20 10:30 DCW (Rec: 10/24/20 16:22 DCW [id number]) Manual Assessments Soft Tissue Assessment Soft Tissue Mobility Assessment Moderate tone along left QL, Erector spinae, left psoas Joint Mobility Assessment Joint Mobility Assessment Mild hypomobility of lumbar vertebrae PT-OP-K Range of Motion Start: 10/24/20 16:04 Freq: Status: Active Protocol: Document 10/24/20 10:30 DCW (Rec: 10/24/20 16:22 DCW [id number]) Lumbar Spine Range of Motion Lumbar Spine Active Degrees Testing Position Standing Flexion 25 Extension 10 Lateral Flexion Left 60 Lateral Flexion Right 55 ROM Limitations Soft Tissue Tightness,Muscle Tone Comments Lateral flexion measured in cm from finger tips to floor Pain at end-range of lateral flexion bilaterally PT-OP-L Special Tests Start: 10/24/20 16:04 Freq: Status: Active Protocol: Document 10/24/20 10:30 DCW (Rec: 10/24/20 16:22 [facility] [id number]) Special Tests Lumbar Spine Special Tests ALVARO Test Results Negative Straight Leg Raise Test Results Positive Left - Ipsilateral Slump Test Results Negative Manual Traction Test Results Negative Compression Test Results Negative A-P Shearing Test Results Negative PT-OP-T Assessment and Plan Start: 10/24/20 16:04 Freq: Status: Active Protocol: Document 05/18/21 10:26 DCW (Rec: 05/18/21 10:28 DCW [id number]) Physical Therapy Assessment Assessment Summary Assessment Pt had surgery following her second appointment, canceled all remaining visits. Pt has now not been seen in more than six months. Pt will be discharged from skilled PT at this time, will require a new referral in order to return Physical Therapy Plan Discharge Physical Therapy Discharge Reasons Change in Medical Status Next Visit Focus/Plan Next Note Type Discharge Summary
== END 2021-05-22 13:53 ==
LOC: PHYS 10:30
PROVIDERS: PCP Family Medicine; Referring Provider Family Medicine; Visit Provider Family Medicine
DX: M43.17 Spondylolisthesis, lumbosacral region (principal); M54.5 Low back pain
CPT/HCPCS: 97110; 97140; 97161

== ENCOUNTER 2023-12-24 12:12 | Emergency (ER) | payer MEDICARE, OTHER, SELFPAY ==
[2023-12-24 12:17] VITALS: BP 177/89; PULSE 73; RESP 16; TEMP 36.5; O2SAT 98; BMI 28.3
[2023-12-24] MEDS: methocarbamoL 500 MG TABLET 750 MG PO (12:55)
[2023-12-24] MEDS: KETOROLAC 30 MG/ML VIAL 15 MG IV (13:01)
--- NOTE | 2023-12-24 13:15 | PC.NURSE ---
Left middle back pain. Tender to palpation. Pt denies SOB/CP. Pt denies injury. Pt states this pain started 2 days ago and has gotten progressively worse. Pt state she took ibuprofen and muscle relaxer w/ o much relief.
[2023-12-24 13:49] VITALS: BP 148/73; PULSE 70; RESP 18; O2SAT 98
--- NOTE | 2023-12-24 13:57 | EKG_ITS ---
[address] [address] Test Date: 2023-12-24 Pat Name: Nica Nogueira Department: [facility] Room: Gender: Female [employer] Operator: ABAD : 1940 Requested By: Order Number: [id number] Reading MD: Sesar Bonner MD Measurements Intervals [place] Rate: 70 P: 64 HI: 156 QRS: 31 QRSD: 86 T: 8 QT: 400 QTc: 432 Interpretive Statements Normal sinus rhythm Low voltage QRS Electronically Signed On 12-24-2023 15:33:43 PDT by Sesar Bonner MD
--- NOTE | 2023-12-30 14:32 | ED_ITS ---
HPI - Back Pain/Injury <Stephen Rene PA-C - Last Filed: 12/30/23 17:21> General Chief Complaint: Back Pain/Injury Stated Complaint: back/belly pain Time Seen by Provider: 12/24/23 12:33 History of Present Illness HPI Narrative: 83-year-old female brought in by EMS for left-sided back pain. No trauma. No numbness, tingling, weakness, urinary hesitancy, saddle paresthesia. Patient denies fever, chills, shortness of breath, chest pain, abdominal pain, dysuria, lightheadedness, dizziness, syncope. Related Data Home Medications Medication Instructions Recorded Confirmed levothyroxine 75 mcg tablet 0.075 mg PO QDAY ##0 09/29/11 03/24/20 (Synthroid) Previous Rx's Medication Instructions Recorded hydrocodone 5 mg-acetaminophen 325 2 tab PO Q4-6H PRN pain #40 tabs 03/24/20 mg tablet (Boswell) hydroxyzine pamoate 25 mg capsule 25 mg PO TID-QID PRN spasms #60 03/24/20 (Vistaril) caps Allergies Allergy/AdvReac Type Severity Reaction Status Date / Time codeine [CODEINE] Allergy Severe CHANGE IN Verified 03/24/20 07:26 BEHAVIOR latex [LATEX] Allergy Severe FEVER Verified 03/24/20 07:26 BLISTERS penicillin V [PENICILLIN V] Allergy Severe ANAPHYLAXIS Verified 03/24/20 07:26 hydroxychloroquine Allergy Intermediate Verified 03/24/20 07:26 [HYDROXYCHLOROQUINE] simvastatin [From ZOCOR] Allergy Intermediate Verified 03/24/20 07:26 venlafaxine [VENLAFAXINE] Allergy Intermediate Verified 03/24/20 07:26 Metal Allergy Severe Rash/Hives/ Uncoded 03/24/20 07:26 Itching Review of Systems <Stephen Rene PA-C - Last Filed: 12/30/23 17:21> Constitutional Constitutional: Denies chills, Denies fatigue, Denies fever(s), Denies frequent falls, Denies lethargy and Denies weakness Eyes Eyes: Denies change in vision, Denies eye discharge, Denies irritation and Denies loss of vision ENT Ears, Nose, Mouth, and Throat: Denies change in voice, Denies dizziness, Denies neck pain, Denies sore throat and Denies throat swelling Cardiovascular Cardiovascular: Denies chest pain, Denies irregular heart rhythm, Denies lightheadedness, Denies palpitations, Denies dyspnea, Denies dyspnea on exertion and Denies orthopnea Respiratory Respiratory: Denies cough, Denies dyspnea, Denies dyspnea on exertion and Denies wheezing Gastrointestinal Gastrointestinal: Denies abdominal pain, Denies change in bowel habits, Denies diarrhea, Denies nausea and Denies vomiting Musculoskeletal Musculoskeletal: Reports back pain, Denies neck pain and Denies numbness Integumentary/Breasts Skin/Breast: Denies pruritus, Denies erythema, Denies rash and Denies wounds Neurologic Neurologic: Denies behavioral changes, Denies confusion, Denies dizziness, Denies frequent falls, Denies loss of vision, Denies numbness and Denies weakness Psychiatric Psychiatric: Denies anxiety, Denies behavioral changes, Denies confusion, Denies depression, Denies homicidal ideation and Denies suicidal ideation Endocrine Endocrine: Denies fatigue, Denies flushing and Denies palpitations Hematologic/Lymphatic Hematologic/Lymphatic: Denies easy bruising Allergic/Immunologic Allergic/Immunologic: Denies urticaria, Denies throat swelling and Denies wheezing Patient History <Stephen Rene PA-C - Last Filed: 12/30/23 17:21> Medical History Arthritis Easy bruisability No active medical problems Hypothyroid Surgical History Hx of cholecystectomy Hx of bilateral cataract extraction H/O: knee surgery Social History household members: spouse Smoking Status: Former smoker alcohol intake: current substance use type: does not use Smoking Status: Former smoker alcohol intake frequency: holidays/special occasions only Substance Use Type: does not use Exam <Stephen Rene PA-C - Last Filed: 12/30/23 17:21> Narrative Exam Narrative: Const General:?cooperative, healthy appearing and comfortable [facility] Head:?normal to inspection Ears:?hearing grossly normal bilaterally Nose:?external nose normal Face and sinus:?normal facial exam and sinuses nontender Mouth:?oral mucosae normal Throat:?posterior oropharynx normal Eyes General:?appearance normal, both eyes and all related structures Neck Neck:?normal visual inspection and no lymphadenopathy noted Resp Effort & Inspection:?normal respiratory effort Auscultation:?clear to auscultation bilaterally Cardio Rate:?regular rate Rhythm:?regular rhythm Musculoskeletal No midline tenderness to palpation. No paraspinal tenderness to palpation. Strength and sensation is intact. Gait is normal. Neurovascularly intact. Neuro General:?patient alert, patient awake and patient oriented x3 Initial Vital Signs Initial Vital Signs: Vital Signs Temperature 97.7 F 12/24/23 12:17 Pulse Rate 73 12/24/23 12:17 Respiratory Rate 16 12/24/23 12:17 Blood Pressure 177/89 H 12/24/23 12:17 Pulse Oximetry 98 12/24/23 12:17 Oxygen Delivery Method Room Air 12/24/23 12:17 <Dominguez Lewis MD - Last Filed: 01/05/24 01:28> Initial Vital Signs Initial Vital Signs: Vital Signs Temperature 97.7 F 12/24/23 12:17 Pulse Rate 73 12/24/23 12:17 Respiratory Rate 16 12/24/23 12:17 Blood Pressure 177/89 H 12/24/23 12:17 Pulse Oximetry 98 12/24/23 12:17 Oxygen Delivery Method Room Air 12/24/23 12:17 Course <Stephen Rene PA-C - Last Filed: 12/30/23 17:21> Orders Ordered: Discontinued Medications Ketorolac Tromethamine (Ketorolac 30 Mg/Ml Vial) 30 mg IM NOW ONE Stop: 12/24/23 12:49 Last Admin: 12/24/23 13:00 Dose: Not Given Documented By: YINKA Ketorolac Tromethamine (Ketorolac 30 Mg/Ml Vial) 15 mg IV NOW ONE Stop: 12/24/23 13:01 Last Admin: 12/24/23 13:01 Dose: 15 mg Documented By: YINKA Methocarbamol (Methocarbamol 500 Mg Tablet) 750 mg PO NOW ONE Stop: 12/24/23 12:50 Last Admin: 12/24/23 12:55 Dose: 750 mg Documented By: YINKA <Dominguez Lewis MD - Last Filed: 01/05/24 01:28> Orders Ordered: Discontinued Medications Ketorolac Tromethamine (Ketorolac 30 Mg/Ml Vial) 30 mg IM NOW ONE Stop: 12/24/23 12:49 Last Admin: 12/24/23 13:00 Dose: Not Given Documented By: YINKA Ketorolac Tromethamine (Ketorolac 30 Mg/Ml Vial) 15 mg IV NOW ONE Stop: 12/24/23 13:01 Last Admin: 12/24/23 13:01 Dose: 15 mg Documented By: YINKA Methocarbamol (Methocarbamol 500 Mg Tablet) 750 mg PO NOW ONE Stop: 12/24/23 12:50 Last Admin: 12/24/23 12:55 Dose: 750 mg Documented By: YINKA MDM - Back Pain/Injury <Stephen Rene PA-C - Last Filed: 12/30/23 17:21> Lab Data Labs: Urine Dip Bedside Urine Glucose Negative Bedside Urine Bilirubin - Negative Bedside Urine Ketone - Negative Urine Specific [place] 1.025 Bedside Urine Occult Blood - Negative Bedside Urine pH 6.0 Bedside Urine Protein - Negative Bedside Urine Urobilinogen - Negative Bedside Urine Nitrite - Negative Bedside Urine Leukocytes - Negative Esterase MDM Narrative Medical decision making narrative: 83-year-old female brought in by EMS for left-sided back pain. Physical exam is reassuring for no midline tenderness to palpation. No trauma. No urinary hesitancy, numbness, tingling, weakness, or other red flags. Patient was given an injection of Toradol and some methocarbamol with good relief. Prescribed methocarbamol. Recommend continuing ibuprofen at home. Recommend follow-up with PCP. ED return precautions discussed with patient. Patient verbalized understanding. Medical records reviewed: Yes <Dominguez Lewis MD - Last Filed: 01/05/24 01:28> Lab Data Labs: Urine Dip Bedside Urine Glucose Negative Bedside Urine Bilirubin - Negative Bedside Urine Ketone - Negative Urine Specific [place] 1.025 Bedside Urine Occult Blood - Negative Bedside Urine pH 6.0 Bedside Urine Protein - Negative Bedside Urine Urobilinogen - Negative Bedside Urine Nitrite - Negative Bedside Urine Leukocytes - Negative Esterase Discharge Plan Departure Patient Disposition: Home Clinical Impression: Back pain Qualifiers: Back pain location: thoracic back pain Chronicity: acute Back pain laterality: left Qualified Code(s): M54.6 - Pain in thoracic spine Instructions: DI for Back Spasm Activity Restrictions/Additional Instructions: You were evaluated in the ED today for back pain. It appears that your symptoms are caused due to a muscle spasm/strain of the back. Your symptoms improved with Toradol and methocarbamol. You are being prescribed methocarbamol which is a muscle relaxant. It might make you sleepy, so please exercise fall precautions and stain from driving or operating machinery when taking it. You may also take 600 mg of ibuprofen every 8 hours with food for pain. Please follow-up with your PCP as soon as possible. Return to the ED if you have worsening symptoms, chest pain, shortness of breath, numbness, tingling, weakness, urinary difficulties. Prescriptions: No Action levothyroxine [Synthroid] 75 MCG tablet 0.075 mg PO QDAY Qty: 0 hydrocodone-acetaminophen [Boswell] 5-325 mg tablet 2 tab PO Q4-6H PRN (Reason: pain) Qty: 40 0RF hydroxyzine pamoate [Vistaril] 25 mg capsule 25 mg PO TID-QID PRN (Reason: spasms) Qty: 60 0RF Referrals: Pia Buckley MD [Primary Care Provider] - Stand Alone Forms: Patient Portal/API ED Sign-out <Dominguez Lewis MD - Last Filed: 01/05/24 01:28> Cosign ED Attending Cosignature Attestation: I was immediately available in the department for consultation. This documentation has been reviewed and I agree with assessment and plan. Supervised by Dominguez Lewis MD
== END 2023-12-24 14:32 | disposition home or self-care (01) ==
PROVIDERS: Emergency Provider Student in an Organized Health Care Education/Training Program; PCP Family Medicine
DX: M54.6 Pain in thoracic spine (principal)
CPT/HCPCS: 81003; 93005; 93010; 96374; 99284; J1885

== ENCOUNTER 2024-07-02 13:45 | Emergency (ER) | payer MEDICARE, SELFPAY ==
[2024-07-02 14:01] VITALS: BP 170/73; PULSE 83; RESP 18; TEMP 36.4; O2SAT 97; BMI 29.7
--- NOTE | 2024-07-02 14:53 | ED_ITS ---
<Statement entered by Rian Alcaraz DO - 07/02/24 17:27> Dr. Alcaraz: I was immediately available in the department for consultation. I did not actually see the patient. HPI - Skin/Abscess/Foreign Bdy General Chief complaint: Skin/Abscess/Foreign Body Stated complaint: Bug bites all over Time Seen by Provider: 07/02/24 14:39 Source: patient and family Mode of arrival: Ambulatory Limitations: no limitations History of Present Illness HPI narrative: Ms. Nogueira is a very pleasant 83-year-old female with a past medical history of hemochromatosis, memory problems who presents to the emergency department for ?bug bites all over? since yesterday. Patient reports that she had a few red itchy spots show up on her stomach, both of her shoulders and now her right foot and right ear starting to get itchy. She denies any new environmental exposures or any new products. Reports that she did recently have family visiting from out of state that left and she did clean all the sheets after they left however she is turned normal detergent. None of her family members or other household members have similar spots. She walks her dog outside every day but does not remember being bitten by a specific bug. She states that she feels otherwise well, denies fevers, chills, nausea, vomiting, abdominal pain, chest pain, shortness of breath, cough. Reports that over the last week she has been sweating more at night but she is also using a new he did mattress pad. She has not tried any medications prior to arrival but she would like something to help with the itching. No difficulty breathing or oral itching or swelling. Related Data Home Medications Medication Instructions Recorded Confirmed levothyroxine 75 mcg tablet 0.075 mg PO QDAY ##0 09/29/11 03/24/20 (Synthroid) Previous Rx's Medication Instructions Recorded hydrocodone 5 mg-acetaminophen 325 2 tab PO Q4-6H PRN pain #40 tabs 03/24/20 mg tablet (Zelienople) hydroxyzine pamoate 25 mg capsule 25 mg PO TID-QID PRN spasms #60 03/24/20 (Vistaril) caps famotidine 20 mg tablet (Pepcid) 20 mg PO DAILY 5 days #5 tabs 07/02/24 loratadine 10 mg tablet 10 mg PO DAILY 1 week #7 tabs 07/02/24 prednisone 20 mg tablet 40 mg (2 x 20 mg) PO DAILY 5 days 07/02/24 #10 tabs Allergies Allergy/AdvReac Type Severity Reaction Status Date / Time codeine [CODEINE] Allergy Severe CHANGE IN Verified 03/24/20 07:26 BEHAVIOR latex [LATEX] Allergy Severe FEVER Verified 03/24/20 07:26 BLISTERS penicillin V [PENICILLIN V] Allergy Severe ANAPHYLAXIS Verified 03/24/20 07:26 hydroxychloroquine Allergy Intermediate Verified 03/24/20 07:26 [HYDROXYCHLOROQUINE] simvastatin [From ZOCOR] Allergy Intermediate Verified 03/24/20 07:26 venlafaxine [VENLAFAXINE] Allergy Intermediate Verified 03/24/20 07:26 Metal Allergy Severe Rash/Hives/ Uncoded 03/24/20 07:26 Itching Review of Systems Review of Systems ROS Unobtainable: All systems reviewed & are unremarkable except as noted in HPI and below Patient History Medical History Arthritis Easy bruisability No active medical problems Hypothyroid Surgical History Hx of cholecystectomy Hx of bilateral cataract extraction H/O: knee surgery Social History household members: spouse Smoking Status: Former smoker alcohol intake: current substance use type: does not use Smoking Status: Former smoker alcohol intake frequency: holidays/special occasions only Exam Narrative Exam Narrative: GENERAL: 83 year old patient appears stated age. Well-developed patient, in no acute distress. HEAD: Atraumatic. Normocephalic. EYES: No scleral icterus. No injection or drainage. ENT: Nose without bleeding, purulent drainage. Throat without erythema, tonsill ar hypertrophy or exudate. Airway patent. No oral mucous membrane lesions. NECK: Trachea midline. Cervical ROM intact. CARDIOVASCULAR: Regular rate and rhythm. RESPIRATORY: ?Nonlabored respirations. ?Speaking in clear, full sentences. ?Clear to auscultation. Breath sounds equal bilaterally. No wheezes, rales, or rhonchi. ? GASTROINTESTINAL: Abdomen soft, non-tender, nondistended. EXTREMITIES: No edema or joint tenderness. BACK: Nontender. NEURO: AOx3. ?Clear speech. ?Moves all 4 extremities appropriately. SKIN: Scattered erythematous, partially raised red lesions/plaques. Cluster on right ankle, few lesions on abdomen, right ear, right shoulder, left low back. No blisters, no fluctuance, no drainage, no scabbing, no vesicles, no petechiae. Lesions are blanchable. Initial Vital Signs Initial Vital Signs: Vital Signs Temperature 97.5 F L 07/02/24 14:01 Pulse Rate 83 07/02/24 14:01 Respiratory Rate 18 07/02/24 14:01 Blood Pressure 170/73 H 07/02/24 14:01 Pulse Oximetry 97 07/02/24 14:01 Oxygen Delivery Method Room Air 07/02/24 14:01 Course Orders Ordered: Discontinued Medications Diphenhydramine HCl (Diphenhydramine 25 Mg Tablet) 25 mg PO NOW ONE Stop: 07/02/24 15:14 Last Admin: 07/02/24 15:27 Dose: 25 mg Documented By: LEATHA Famotidine (Famotidine 20 Mg Tablet) 20 mg PO BID TANIKA Famotidine (Famotidine 20 Mg Tablet) 20 mg PO NOW ONE Stop: 07/02/24 15:29 Last Admin: 07/02/24 15:28 Dose: 20 mg Documented By: LEATHA Prednisone (Prednisone 20 Mg Tablet) 40 mg PO NOW ONE Stop: 07/02/24 15:14 Last Admin: 07/02/24 15:27 Dose: 40 mg Documented By: LEATHA Vital Signs Vital signs: Vital Signs - 8 hr 07/02/24 14:01 07/02/24 16:42 Temperature 97.5 F L Pulse Rate 83 66 Respiratory Rate 18 14 Blood Pressure 170/73 H 173/81 H Pulse Oximetry 97 98 Oxygen Delivery Method Room Air Room Air MDM - Skin/Abscess/Foreign Bdy Medical Records Attestation: I reviewed the patient's medical records. Medical records narrative: Reviewed prior ED visits for back pain in December 2023, colitis in 2018 and 2020 [facility] Narrative Medical decision making narrative: 83-year-old female with a past medical history of hemochromatosis, memory problems who presents to the emergency department for ?bug bites all over? since yesterday. Differential diagnosis includes but is not limited to arthropod bite (mosquito bite, bedbugs), urticaria, contact dermatitis, plaque psoriasis, viral syndrome, etc. On exam the patient is in no acute distress, nontoxic-appearing, blood pressure mildly elevated. She is few scattered erythematous plaques in no specific dermatome that are very itchy. They look like bug bites or small hives. She has no oral mucous membrane lesions, no blisters, no drainage, no petechiae. She denies any known environmental trigger, no household family members have similar symptoms. She denies any systemic symptoms and actually declines having any imaging or lab work done. We will treat with prednisone, Pepcid and Benadryl. Recommended topical hydrocortisone cream for specific lesions. Patient's symptoms improved significantly after ED treatment. She was prescribed 5 day course of prednisone, Pepcid, loratadine. I did instruct her to also apply hydrocortisone cream directly to the rashes. We discussed that if other family members or household members developed similar lesions then she should be aware of potential bedbugs. Discussed strict ED return precautions and follow up with PCP. She verbalized understanding of all information is requesting discharge home. She is stable for discharge home. Discharge Plan Departure Patient Disposition: Home Clinical Impression: Pruritic rash Instructions: DI for Hives Activity Restrictions/Additional Instructions: Dear Mirlande, Today you were evaluated for an itchy rash. I agree with you that it does look like bug bites. Please wash all of your sheet/bedding/blankets that may come into contact with you. Please take the prescribed Pepcid, prednisone (steroid), and loratadine which is a daily allergy pill. I would also like you to purchase [id number] hydrocortisone cream and apply this to all of the itchy spots twice a day for the next 2 weeks. You may also use [id number] Benadryl if needed at night if you are very itchy however be aware that this can make you drowsy. Please follow up with your primary care doctor, return to the emergency department if develop any difficulty breathing, lesions in your mouth, mouth swelling or other concerns. Please follow up with your primary care doctor within the next 2-3 days for ER follow-up. (If you do not have a PCP you can call [phone]. ?to schedule an appointment with an [facility] Primary Care Provider) IF YOU DEVELOP ANY NEW OR WORSENING SYMPTOMS, RETURN TO THE ER! Please read the attached instructions, they highlight more specific treatments and interventions for you at home. Thank you for letting me participate in your care, Shana Romero PA-C Prescriptions: New prednisone 20 mg tablet 40 mg PO DAILY 5 Days Qty: 10 0RF famotidine [Pepcid] 20 mg tablet 20 mg PO DAILY 5 Days Qty: 5 0RF loratadine 10 mg tablet 10 mg PO DAILY 7 Days Qty: 7 0RF No Action levothyroxine [Synthroid] 75 MCG tablet 0.075 mg PO QDAY Qty: 0 hydrocodone-acetaminophen [Zelienople] 5-325 mg tablet 2 tab PO Q4-6H PRN (Reason: pain) Qty: 40 0RF hydroxyzine pamoate [Vistaril] 25 mg capsule 25 mg PO TID-QID PRN (Reason: spasms) Qty: 60 0RF Referrals: Pia Buckley MD [Primary Care Provider] - Stand Alone Forms: Patient Portal/API/Survey
--- NOTE | 2024-07-02 15:05 | PC.NURSE ---
patient complains of itching which started last night. She has small papules on her right ankle, abd, shoulders. she denies SOB, chest pain, fevers but does say that he has been having nights sweats for a week now. She was visited by her son from [place] who left last saturday. He son was not having s/sx. She denies allergies and has not had any changes to her environment or her detergents.
[2024-07-02] MEDS: diphenhydrAMINE 25 MG TABLET PO (15:27)
[2024-07-02] MEDS: predniSONE 20 MG TABLET 40 MG PO (15:27)
[2024-07-02] MEDS: FAMOTIDINE 20 MG TABLET PO (15:28)
[2024-07-02 16:42] VITALS: BP 173/81; PULSE 66; RESP 14; O2SAT 98
== END 2024-07-02 16:45 | disposition home or self-care (01) ==
PROVIDERS: Emergency Provider Physician Assistant; PCP Family Medicine
DX: L29.9 Pruritus, unspecified (principal)
CPT/HCPCS: 99283; A9270

== ENCOUNTER → 2024-10-09 15:45 | Outpatient (CLI) | payer MEDICARE, SELFPAY ==
--- NOTE | 2024-10-09 15:46 | DI.CT.S_ITS ---
PROCEDURE: CT LUMBAR SPINE WO CON INDICATIONS: Radiculopathy TECHNIQUE: Noncontrast 3 mm thick sections acquired from the T12 level to the sacrum. Sagittal and coronal reformats were constructed. For radiation dose reduction, the following was used: automated exposure control. COMPARISON: CT of abdomen and pelvis dated 08/05/2020 and lumbar spine radiograph dated 10/22/2018. FINDINGS: Image quality: Excellent. Bones: There is surgical fusion of spinous processes of L4 and L5 vertebral bodies. There is 4 mm anterolisthesis of L3 on L4 and 8 mm anterolisthesis of L4 on L5. Mild leftward curvature of lumbar spine with apex at L2 level is seen. No acute vertebral body compression fractures. No suspicious lytic or blastic bony lesions. Cortical irregularity involving left anterior sacrum concerning for age indeterminate sacral insufficiency fracture suggest clinical correlation and follow-up. T12-L1: Unremarkable. L1-L2: Loss of disc height and vacuum disc phenomenon. Diffuse disc bulge and bilateral facet arthrosis with mild central canal stenosis and right worse than left bilateral neural foraminal narrowing is seen. L2-L3: Degenerative endplate changes, loss of disc height and vacuum disc phenomenon is seen. There is broad-based disc bulge and suggestion of superimposed left lateral disc herniation with bilateral facet arthrosis causing [id number] central canal stenosis and severe bilateral neural foraminal narrowing. L3-L4: Loss of disc height and vacuum disc phenomenon. Broad-based disc bulge and bilateral facet arthrosis with moderate central canal stenosis and moderate to severe bilateral neural foraminal narrowing. L4-L5: Postsurgical changes are seen with beam hardening artifacts. Vacuum disc phenomenon and loss of disc height is seen. Suggestion of diffuse disc bulge and bilateral facet arthrosis with moderate to severe central canal stenosis and bilateral neural foraminal narrowing. L5-S1: Diffuse disc bulge and bilateral facet arthrosis is seen with mild central canal stenosis and vyob-sd-oagrzudq bilateral neural foraminal narrowing. Soft tissues: No retroperitoneal masses or hematomas. Visualized aorta is normal in caliber. IMPRESSION: 1. Postsurgical changes at L4-5 level as above. Grade 1 anterolisthesis at L3-4 and L4-5 levels. No acute vertebral body compression fracture. Age indeterminate sacral insufficiency fractures involving left sacrum as above. 2. Multilevel spondylitic changes throughout lumbar spine causing various degrees of central canal stenosis and bilateral neural foraminal narrowing as described above. 3. No gross paraspinous soft tissue abnormalities. Dictated by: Gordon Dobbins M.D. on 10/10/2024 at 23:41 Approved by: Gordon Dobbins M.D. on 10/10/2024 at 23:49
== END ==
LOC: CT 15:45
PROVIDERS: Family Provider Family Medicine; PCP Family Medicine; Referring Provider Family Medicine; Visit Provider Family Medicine
DX: M48.062 Spinal stenosis, lumbar region with neurogenic claudication (principal); M48.07 Spinal stenosis, lumbosacral region; M47.26 Other spondylosis with radiculopathy, lumbar region; M47.27 Other spondylosis with radiculopathy, lumbosacral region; M43.16 Spondylolisthesis, lumbar region; Z98.1 Arthrodesis status
CPT/HCPCS: 72131

== ENCOUNTER → 2024-12-16 16:41 | Outpatient (CLI) | payer MEDICARE, OTHER, SELFPAY ==
--- NOTE | 2024-12-16 16:47 | DI.RAD.S_ITS ---
PROCEDURE: XR SHOULDER RT MIN 2V INDICATIONS: CHRONIC RT SHOULDER PAIN TECHNIQUE: Three views of the right shoulder were acquired. COMPARISON: [facility], , SHOULDER MINIMUM 2VIEW RIGHT, 08/06/2014, 10:14. FINDINGS: Bones: The distal 1 cm the clavicle is absent as previously seen. Suspect old trauma or surgical resection. There are multiple cystic lesions within the surgical neck of the humerus which are likely degenerative. They have increased in number from 2015 . Acromioclavicular and glenohumeral joints: Moderate glenohumeral degeneration noted Soft tissues: No soft tissue swelling, calcification or mass. IMPRESSION: Moderate glenohumeral degeneration progressing. Chronic erosion of the distal clavicle Multiple cysts along the surgical neck of the humerus are likely degenerative. They have increased in number. Consider MRI Dictated by: Sesar Rocha M.D. on 12/17/2024 at 13:51 Approved by: Sesar Rocha M.D. on 12/17/2024 at 13:52
== END ==
PROVIDERS: Family Provider Family Medicine; PCP Family Medicine; Referring Provider Family Medicine; Visit Provider Family Medicine
DX: M19.011 Primary osteoarthritis, right shoulder (principal); M85.811 Other specified disorders of bone density and structure, right shoulder; M85.621 Other cyst of bone, right upper arm; M25.511 Pain in right shoulder; G89.29 Other chronic pain
CPT/HCPCS: 73030

== ENCOUNTER 2024-12-20 14:35 | Emergency (ER) | payer MEDICARE, OTHER, SELFPAY ==
[2024-12-20 14:39] VITALS: BP 138/72; PULSE 80; RESP 16; TEMP 37.1; O2SAT 97; BMI 26.6
--- NOTE | 2024-12-20 14:52 | EKG_ITS ---
[address] [id number] Test Date: 2024-12-20 Pat Name: Nica Nogueira Department: [facility] Room: Gender: Female Display Manager: ROSMERY : 1940 Requested By: Order Number: [id number] Reading MD: Christopher Glynn Measurements Intervals [place] Rate: 73 P: 48 W[place]: 142 QRS: 15 QRSD: 84 T: 5 QT: 378 QTc: 416 Interpretive Statements Normal sinus rhythm Electronically Signed On 12-23-2024 8:08:37 PDT by Christopher Glynn
== END 2024-12-20 16:31 | disposition left against medical advice (07) ==
PROVIDERS: Emergency Provider Student in an Organized Health Care Education/Training Program; Family Provider Family Medicine; PCP Family Medicine
DX: M25.511 Pain in right shoulder (principal)
CPT/HCPCS: 93005; 99281